=== PATIENT | female | born 1940 | race American Indian/Alaskan Native ===

== ENCOUNTER 2016-09-13 02:25 | Inpatient (IN) | payer MEDICARE ==
--- NOTE | 2016-09-13 03:12 | ED PDOC ---
HPI: Cardiac Arrest Time Seen by Provider: 09/13/16 03:01 Chief Complaint (Nursing): Cardiac Arrest Chief Complaint (Provider): Cardiac Arrest History Per: EMS, Family Reason For Code Blue: Full Arrest Circumstances: Brought To ED By EMS Arrest Witnessed By: Family CPR Initiated Prior To MD Arrival?: Yes Down-Time Before ACLS: Mins Treatment Initiated Prior To MD Arrival: CPR, BVM Ventilations, IV Access Medications Given Prior To MD Arrival: Epinephrine ((Three)) Additional Complaint(s): 75 y/o female patient presenting to the ED with cardiac arrest. Patients family witnessed the patient go into arrest and stated that she was in the bathroom and suddenly could not breathe. She was gasping stating she could not breath. The family tried fanning her and did not provide liquids as they were instructed not to. The family states this is the first time this has ever happened to the patient. Patient was brought in by EMS who state that administered three does of epinephrine while in the field in addition to administering biCarbonate and calcium. Patients past medical history includes three mini-strokes which occurred two weeks ago. Diabetes, Kidney Issues ( Dialysis has been discussed but not started), a stent placed into one leg and CAD. Patient also was put on a heart monitor last week by Dr. Angus Sanford her staff anesthesiologist but the results have not been discussed as of yet. Dr. Clarke is the patients news producer and Dr. Wallace Branch is her primary care physician. - Initial Findings Mentation: Unresponsive Rhythm: PEA Past Medical History Reviewed: Historical Data, Nursing Documentation, Vital Signs Vital Signs: Last Vital Signs Temp 94.7 F L 09/13/16 18:00 Pulse 74 09/13/16 18:00 Resp 18 09/13/16 18:00 BP 167/69 H 09/13/16 18:00 Pulse Ox 99 09/13/16 12:00 - Medical History PMH: CAD, Diabetes, TIA - Surgical History Surgical History: Coronary Stent - Family History Family History: States: Unknown Family Hx - Home Medications Home Medications: Ambulatory Orders Medication Instructions Recorded Aspirin [Ecotrin] 81 mg PO DAILY 09/13/16 Atorvastatin [Lipitor] 40 mg PO HS #30 tab 09/13/16 Bimatoprost [Lumigan] 1 drop OU HS #1 bottle 09/13/16 Brimonidine 0.2% [Alphagan 0.2% 1 drop OU BID #1 bottle 09/13/16 Opht] Cholecalciferol (Vitamin D3) 1,000 unit PO DAILY #30 tablet 09/13/16 [Vitamin D3] Clopidogrel [Plavix] 75 mg PO 09/13/16 Ferrous Sulfate 325 mg PO DAILY #30 tablet 09/13/16 Furosemide [Lasix] 09/13/16 Insulin Detemir [Levemir] 8 units SC HS #1 vial 09/13/16 Metoprolol Tartrate 25 mg PO DAILY #30 tablet 09/13/16 Sevelamer Carbonate [Renvela] 800 mg PO DAILY 09/13/16 Sodium Bicarbonate 650 mg PO DAILY #30 tablet 09/13/16 amLODIPine [Norvasc] 10 mg PO DAILY #30 tab 09/13/16 cloNIDine [Catapres] 0.1 mg PO TID #90 tab 09/13/16 - Allergies Allergies/Adverse Reactions: Allergies Allergy/AdvReac Type Severity Reaction Status Date / Time No Known Allergies Allergy Verified 09/13/16 07:44 - Laboratory Results Result Diagrams: 09/13/16 09:00 09/13/16 11:30 Medical Decision Making Medical Decision Making: Time: 255 Initial impression: Cardiac Arrest Initial plan: --ABG SHOCK PANEL --EKG --CMP --MAGNESIUM --PHOSPHOROUS --TROPONIN I --EKG-ED --CBC --PARTIAL THROMBOPLASTIN --PROTHROMBIN --CHEST PORTABLE XRAY --NURSE STAFF [facility] --CALL CARDIOLOGY CONSULT --ADMIT --UA [URINALYSIS] --URINALYSIS --Critical Care: The high probability of sudden, clinically significant deterioration in the patient's condition required the highest level of my preparedness to intervene urgently. The services I provided to this patient were to treat and/or prevent clinically significant deterioration that could result in: heart failure. Services included the following: chart data review, reviewing nursing notes and/or old charts, documentation time, physician practice consultant collaboration regarding findings and treatment options, medication orders and management, direct patient care, re-evaluations, vital sign assessments and ordering, interpreting and reviewing diagnostic studies/lab tests. Aggregate critical care time was 90 minutes which includes only time during which I was engaged in work directly related to the patient's care, as described above, whether at the bedside or elsewhere in the Emergency Department. It did not include time spent performing other reported procedures or the services of residents, students, nurses or physician assistants. PROCEDURE: INTUBATION Performed by the emergency provider Time: 244 Consent: was precluded by the critical urgency of the procedure and the patient condition. Timeout: A timeout to verify the correct patient, procedure, and site was performed. Indication: Cardiac Arrest Pre-oxygenation: [id number] Medications: None. ETT Size: 7.5 Confirmation: Cords directly visualized as tube passed, good bilateral breath sounds, positive CO2 detector color change, tube fogging, adequate chest rise, improving pulse oximetry reading, improved skin color, and absence of gastric sounds,. ETT Secured: The cuff was inflated and the tube was secured appropriately at a distance of 23cm at the upper-lip. Post-Procedure: There were no immediate immediate complications. CXR Confirmation: {Yes} PROCEDURE: CENTRAL LINE PLACEMENT Performed by the emergency provider Time: 244 Consent: was precluded by the critical urgency of the procedure and the patient condition. Timeout: A timeout to verify the correct patient, procedure, and site was performed. Indication: Cardiac Arrest Anesthesia: None. Skin Preparation: Hand hygiene performed prior to central venous catheter insertion. The area was cleansed with 2% Chlorhexidine. Sterile was not maintained secondary to cardiac arrest. Patient position: Supine Location: Right Femoral Ultrasound guidance: {NO} Technique: The landmarks for the line placement were identified. The vessel was cannulated and a non-tunneled 7.0 Fr triple lumen was placed using the Seldinger technique. Successful placement: {YES}. Line sutured with silk and appropriate dressing applied. Assessment: Good patency and blood return through all three lumens. The ports were appropriately flushed. See post procedure X-Ray interpretation. Post-procedure: There were no immediate complications. --Patient was cooled according to Hypothermia Protocol --Consultations: Case discussed with Dr. Max Gates MD who is aware of the plan and will follow the patient. Dr. Levi MD, [facility] notified of patients condition. Scribe Attestation: Documented by Lola Amin, acting as a scribe for Remy Ardon MD. Scribe Attestation: All medical record entries made by the Scribe were at my direction and personally dictated by me. I have reviewed the chart and agree that the record accurately reflects my personal performance of the history, physical exam, medical decision making, and the department course for this patient. I have also personally directed, reviewed, and agree with the discharge instructions and disposition. Procedures - Central Line Central Line Lumen: triple Central Line Procedure: sterile dressing applied Central Line Postion: femoral (R) Complications: none Central Line Post Position: sutured, good blood return - Intubation Time of Intubation: 02:45 Intubation Method: orotracheal Tube Size (cm): 7.5 Intubation Complications: no complications Post Intubation Xray: Yes Disposition - Clinical Impression Clinical Impression: Cardiac arrest - Disposition Disposition Time: 03:00 Condition: CRITICAL Critical Care Time - Critical Care Note Total Time (in mins): 90 Documented critical care: time excludes all time spent performing seperately billable procedures.
[2016-09-13 03:15] LABS: ABG ALLEN TEST YES; ARTERIAL BLOOD GAS HCO3 10.6 mmol/L (21-28); ARTERIAL BLOOD GAS O2 SAT 98.7 % (95-98); ARTERIAL BLOOD GAS PCO2 60 mm/Hg (35-45); ARTERIAL BLOOD GAS PH 6.97 (7.35-7.45); ARTERIAL BLOOD GAS PO2 160 mm/Hg (80-100); ARTERIAL BLOOD GAS TCO2 15.6 mmol/L (22-28)
[2016-09-13 03:16] LABS: HEMOGLOBIN 8.6 g/dL (12.0-16.0); MEAN CELL VOLUME 78.7 fl (81.0-99.0); MEAN CORPUSCULAR HEMOGLOBIN 22.7 pg (27.0-31.0); MEAN CORPUSCULAR HGB CONC 28.8 g/dL (33.0-37.0); RBC 3.8 Mil/uL (3.80-5.20); RED CELL DISTRIBUTION WIDTH 17.9 % (11.5-14.5); WHITE BLOOD COUNT 18.2 K/uL (4.8-10.8)
[2016-09-13 03:30] LABS: ALBUMIN 2.8 g/dL (3.5-5.0)
[2016-09-13 03:33] LABS: ALB/GLOB RATIO 0.7 (1.0-2.1)
[2016-09-13 03:34] LABS: MAGNESIUM 2.3 MG/DL (1.6-2.3)
[2016-09-13 03:45] LABS: INR 1.1 (0.9-1.2); PARTIAL THROMBOPLASTIN TIME 25.2 Seconds (25.6-37.1); PROTHROMBIN TIME 12.7 Seconds (9.8-13.1)
[2016-09-13 03:46] LABS: CALCIUM 13.3 mg/dL (8.4-10.2)
[2016-09-13] MEDS ORDERED: Iodixanol 320 MG/ML 100 ML BOTTLE IV ONE (03:46)
[2016-09-13] MEDS ORDERED: Sodium Chloride 0.9% 100 ML ONE (03:46)
[2016-09-13 03:49] LABS: TROPONIN I 0.078 ng/mL (0.00-0.120)
[2016-09-13] MEDS ORDERED: Sodium Bicarbonate 8.4% 150 MEQ in Dextrose 5% In Water 1,000 ML IV SCH (03:51)
[2016-09-13] MEDS ORDERED: Propofol 10 mg/ml Inj (100 ml) IV SCH (04:00)
--- NOTE | 2016-09-13 04:14 | CP.PCM.CON ---
History of Present Illness - History of Present Illness History of Present Illness: CC/Reason for ICU: Cardiac arrest History via family, patient is intubated and on vent HPI: This is a 75 y/o female with likely CAD/PVD, DM2, and CKD who comes in after having a cardiac arrest at home. Per family, she began c/o SOB around 1- 130 AM. They tried to move her, and fan her to cool her off, but it got worse, so they called EMS. She was unresponsive and not breathing when EMS arrived. Had CPR, and was intubated in the field and brought here. Patient has not had FLOYD thus far. ROS: unable to perform 2/2 mental status MHx: CAD/PVD, DM2, CKD SHx: Stents in LE for PVD Allergies: unknown Medications: as per med rec Family Hx: Unable to obtain Social Hx: Lives with family; tobacco use in past, but quit 10 years ago, no EtOH Surrogate Dec Mkr: Son, info in chart Past Patient History - NEUROLOGICAL Hx Transient Ischemic Attacks (TIA): Yes - SURGICAL HISTORY Hx Coronary Stent: Yes Meds Allergies/Adverse Reactions: Allergies Allergy/AdvReac Type Severity Reaction Status Date / Time Unobtainable Allergy Verified 09/13/16 02:50 - Medications Medications: Current Medications Artificial Tears (Lacri-Lube) 1 applic OU HS MARY GRACE Sodium Bicarbonate 150 meq/ (Dextrose) 1,150 mls @ 75 mls/hr IV .[id number] MARY GRACE Stop: 09/14/16 03:52 Insulin Human Lispro (Humalog) 0 units SC Q6H MARY GRACE PRN Reason: Protocol Pantoprazole Sodium (Protonix Inj) 40 mg IVP DAILY MARY GRACE Propofol (Diprivan) 1,000 mg IV .TITRATE MARY GRACE PRN Reason: Protocol Physical Exam - Constitutional Additional comments: unresponsive - Head Exam Head Exam: ATRAUMATIC, NORMOCEPHALIC - Eye Exam Additional comments: pupils non reactive - ENT Exam ENT Exam: Mucous Membranes Moist - Respiratory Exam Respiratory Exam: Rhonchi Additional comments: on vent - Cardiovascular Exam Cardiovascular Exam: REGULAR RHYTHM, +S1, +S2 - GI/Abdominal Exam GI & Abdominal Exam: Normal Bowel Sounds, Soft - Extremities Exam Extremities exam: Positive for: pedal edema - Neurological Exam Additional comments: unresponsive - Skin Skin Exam: Dry, Warm Results - Vital Signs Recent Vital Signs: Last Vital Signs Temp 97.7 F 09/13/16 02:50 Pulse 81 09/13/16 03:16 Resp 12 09/13/16 03:16 BP 120/52 L 09/13/16 03:16 Pulse Ox 100 09/13/16 03:16 - Labs Result Diagrams: 09/13/16 03:10 09/13/16 03:10 Labs: Laboratory Results - last 24 hr 09/13/16 09/13/16 09/13/16 03:10 03:10 03:10 WBC 18.2 H RBC 3.80 Hgb 8.6 L Hct 29.9 L MCV 78.7 L MCH 22.7 L MCHC 28.8 L RDW 17.9 H Plt Count 342 PT 12.7 INR 1.1 APTT 25.2 L pCO2 pO2 HCO3 ABG pH ABG Total CO2 ABG O2 Saturation ABG Base Excess Darrell Test ABG Potassium A-a O2 Difference Glucose Lactate Vent Mode Mechanical Rate FiO2 Tidal Volume PEEP Crit Value Called To Crit Value Called By Crit Value Read Back Blood Gas Notified Time Sodium 144 Potassium 4.2 Chloride 113 H Carbon Dioxide 17 L Anion Gap 18 BUN 33 H Creatinine 2.2 H Est GFR ( Amer) 26 Est GFR (Non-Af Amer) 22 Random Glucose 210 H Calcium 13.3 H* Phosphorus 7.4 H Magnesium 2.3 Total Bilirubin 0.5 AST 81 H ALT 47 Alkaline Phosphatase 66 Troponin I 0.0780 Total Protein 6.6 Albumin 2.8 L Globulin 3.8 Albumin/Globulin Ratio 0.7 L Arterial Blood Potassium 09/13/16 03:11 WBC RBC Hgb Hct MCV MCH MCHC RDW Plt Count PT INR APTT pCO2 60 H pO2 160 H HCO3 10.6 L ABG pH 6.97 L* ABG Total CO2 15.6 L ABG O2 Saturation 98.7 H ABG Base Excess -18.4 L Darrell Test Yes ABG Potassium 5.0 A-a O2 Difference 478.0 Glucose 197 H Lactate 10.3 H* Vent Mode Prvc ac Mechanical Rate 12 FiO2 100.0 Tidal Volume 500 PEEP 5 Crit Value Called To Remy bautista md Crit Value Called By 6075 Crit Value Read Back Y Blood Gas Notified Time 314 Sodium 143.0 Potassium Chloride 109.0 H Carbon Dioxide Anion Gap BUN Creatinine Est GFR ( Amer) Est GFR (Non-Af Amer) Random Glucose Calcium Phosphorus Magnesium Total Bilirubin AST ALT Alkaline Phosphatase Troponin I Total Protein Albumin Globulin Albumin/Globulin Ratio Arterial Blood Potassium 5.0 - EKG Data EKG Interpreted by: Myself EKG shows normal: Sinus rhythm - EKG Data EKG comments: RBBB, TOM, poor r wave progression on septal leads - Imaging and Cardiology CT scan - head Status: Pending Chest x-ray Status: Pending Assessment & Plan (1) Cardiac arrest Assessment and Plan: 75 y/o female with DM2, CKD, CAD/PVD who comes in with cardiac arrest of unknown etiology. -Admit ICU -Patient has been started on therapeutic hypothermia protocol in ED, goal temp 32-34 -Labs/CXR/CT head pending -VQ scan pending to r/o PE -q6h accucheck + SSI -Protonix IV for GI PPx while vented -Propofol gtt for sedation -If BP low, levophed gtt for goal map ~65 -Given significant acidosis on ABG, will start bicarb gtt at 60 cc/hr -DVT PPx pending labs/studies -Per family, patient is still full code Critical care time spent 60 min Status: Acute
[2016-09-13] MEDS ORDERED: Propofol 10 mg/ml 1,000 MG/100 ML VIAL IV ONE (04:15)
--- NOTE | 2016-09-13 04:46 | CT ---
EXAM: CT Head Without Intravenous Contrast CLINICAL HISTORY: 75 years old, female; Signs and symptoms; Coma or unconsciousness and other: Unresponsive TECHNIQUE: Axial computed tomography images of the head/brain without intravenous contrast. This CT exam was performed using one or more of the following dose reduction techniques: automated exposure control, adjustment of the mA and/or kV according to patient size, and/or use of iterative reconstruction technique. Coronal and sagittal reformatted images were created and reviewed. COMPARISON: No relevant prior studies available. FINDINGS: Limitations: Motion artifact - mild. Brain: [id number] atrophy. No definite intracranial hemorrhage. No mass. Few scattered foci of decreased attenuation within periventricular/subcortical white matter. Chronic lacunar infarct within RIGHT basal ganglia. No definite edema. Ventricles: No hydrocephalus. Bones/joints: No acute fracture. Soft tissues: Unremarkable. Vasculature: Atherosclerotic disease of intracranial arteries. Sinuses: Scattered mild to moderate mucosal thickening/mild fluid of sinuses. Mastoid air cells: No mastoid effusion. Orbits: Unremarkable as visualized. IMPRESSION: 1. Nonspecific white matter changes. Acute infarction may be CT occult within first 24 hours. If a focal deficit persists, consider followup CT or MRI for further evaluation. 2. Incidental/non-acute findings are described above.
[2016-09-13] MEDS ORDERED: Propofol 10 mg/ml 1,000 MG/100 ML VIAL ONE (04:47)
[2016-09-13] MEDS: Sodium Bicarbonate 8.4% 150 MEQ in Dextrose 5% In Water 1,000 ML IV SCH (05:18)
[2016-09-13] MEDS ORDERED: Sodium Chloride 0.9% 2,000 ML IV SCH (05:30)
[2016-09-13] MEDS: Insulin Lispro (humaLOG) 100 Units/ml Inj SC SCH ×4 (05:54→20:58)
--- NOTE | 2016-09-13 08:42 | RAD ---
HISTORY: cardiac arrest COMPARISON: No prior. FINDINGS: LUNGS: There is opacification of the right lung compatible with extensive diffuse interstitial infiltrate. There is also a left perihilar infiltrate. PLEURA: No significant pleural effusion identified, no pneumothorax apparent. CARDIOVASCULAR: Cardiomegaly.. OSSEOUS STRUCTURES: No significant abnormalities. VISUALIZED UPPER ABDOMEN: Normal. OTHER FINDINGS: ETT above the cortney. NG tube below the diaphragm.. IMPRESSION: Diffuse infiltrate throughout the right lung with left perihilar infiltrate.
[2016-09-13 09:53] LABS: MEAN CORPUSCULAR HEMOGLOBIN 21.8 pg (27.0-31.0); MEAN CORPUSCULAR HGB CONC 29.3 g/dL (33.0-37.0); RBC 4.58 Mil/uL (3.80-5.20); RED CELL DISTRIBUTION WIDTH 17.6 % (11.5-14.5); WHITE BLOOD COUNT 22.8 K/uL (4.8-10.8)
[2016-09-13 09:55] LABS: MEAN CELL VOLUME 74.3 fl (81.0-99.0)
[2016-09-13 10:11] LABS: ALB/GLOB RATIO 0.9 (1.0-2.1); CALCIUM 9.3 mg/dL (8.4-10.2); MAGNESIUM 2.1 MG/DL (1.6-2.3)
[2016-09-13 10:27] LABS: ABG ALLEN TEST YES; ARTERIAL BLOOD GAS HCO3 16.7 mmol/L (21-28); ARTERIAL BLOOD GAS HEMOGLOBIN 10.6 g/dL (11.7-17.4); ARTERIAL BLOOD GAS O2 CAPACITY 14.4 mL/dL (16-24); ARTERIAL BLOOD GAS O2 CONTENT 12.7 ML/dL (15-23); ARTERIAL BLOOD GAS PCO2 57 mm/Hg (35-45); ARTERIAL BLOOD GAS PH 7.13 (7.35-7.45); ARTERIAL BLOOD GAS PO2 57 mm/Hg (80-100); ARTERIAL BLOOD GAS TCO2 20.7 mmol/L (22-28)
--- NOTE | 2016-09-13 10:57 | RAD ---
HISTORY: resp distress COMPARISON: No prior. FINDINGS: LUNGS: Diffuse bilateral interstitial infiltrates. PLEURA: No significant pleural effusion identified, no pneumothorax apparent. CARDIOVASCULAR: Normal. OSSEOUS STRUCTURES: No significant abnormalities. VISUALIZED UPPER ABDOMEN: Normal. OTHER FINDINGS: ETT above the cortney. IMPRESSION: Diffuse bilateral interstitial infiltrates.
--- NOTE | 2016-09-13 11:24 | CARD ---
APPROVED REPORT EKG Measurement Heart [id number] <Conclusion> Sinus rhythm with 1st degree AV block with fusion complexes Possible Left atrial enlargement Right bundle branch block Septal infarct, age undetermined Lateral infarct, age undetermined Abnormal ECG
--- NOTE | 2016-09-13 11:44 | CP.PCM.CON ---
History of Present Illness - History of Present Illness History of Present Illness: This 75 YOF was admitted to ICU early this AM, after she was brought to ER earlier after cardiac arrest at home. It was witnessed by family members, who saw pt unable to breath while in bath room and then collapsed, she did not c/o chest pain. EMT arrived and intubated her and she was given epi and calcium. Not sure from the documents , but probably pt had cardiac arrest with no pulse but pulse and BP returned after epi. in ER she was unresponsive, did not have low BS and CT head was negative. Therapeutic hypothermia started and pt is now in ICU, unresponsive, requiring Fio 1.0 for adequate saturation and not breathing over the vent. BP is stable 150/60 in SB 54/m. Was very acidotic with PH 6.9 and patient is on bicarb infusion. Review of Systems - Review of Systems Systems not reviewed;Unavailable: Unstable Vital Signs, Intubated - EENT Eyes: As Per HPI - Cardiovascular Cardiovascular: As Per HPI - Respiratory Respiratory: As Per HPI - Gastrointestinal Gastrointestinal: As Per HPI Past Patient History - Past Medical History & Family History Past Medical History?: Yes - Past Social History Smoking Status: Never Smoked - CARDIAC Hx Cardiac Disorders: Yes Hx Angina: Yes Hx Atrial Fibrillation: No Hx Cardia Arrhythmia: No Hx Circulatory Problems: Yes Hx Congestive Heart Failure: Yes Hx Heart Attack: Yes Hx Heart Transplant: No Hx Hypertension: Yes Hx Peripheral Vascular Disease: Yes - PULMONARY Hx Respiratory Disorders: No - NEUROLOGICAL Hx Neurological Disorder: Yes Hx Alzheimer's Disease: No HX Cerebrovascular Accident: No Hx Transient Ischemic Attacks (TIA): Yes - HEENT Hx HEENT Problems: No - RENAL Hx Chronic Kidney Disease: Yes Hx Dialysis: No Hx Kidney Stones: No - ENDOCRINE/METABOLIC Hx Endocrine Disorders: Yes Hx Diabetes Mellitus Type 2: Yes - HEMATOLOGICAL/ONCOLOGICAL Hx Blood Disorders: No Hx Anemia: Yes - GENITOURINARY/GYNECOLOGICAL Hx Genitourinary Disorders: No - PSYCHIATRIC Hx Substance Use: No - SURGICAL HISTORY Hx Coronary Stent: Yes - ANESTHESIA Hx Anesthesia: Yes Meds Allergies/Adverse Reactions: Allergies Allergy/AdvReac Type Severity Reaction Status Date / Time No Known Allergies Allergy Verified 09/13/16 07:44 - Medications Medications: Current Medications Artificial Tears (Lacri-Lube) 1 applic OU HS MARY GRACE Propofol (Diprivan) 1,000 mg in 100 mls @ 3.538 mls/hr IV .Q24H ONE; 5 MCG/KG/ MIN PRN Reason: Protocol Stop: 09/14/16 04:14 Last Admin: 09/13/16 04:47 Dose: 3.538 mls/hr Sodium Bicarbonate 150 meq/ (Dextrose) 1,150 mls @ 60 mls/hr IV .[id number] MARY GRACE Stop: 09/14/16 03:52 Last Admin: 09/13/16 05:18 Dose: 60 mls/hr Sodium Chloride (Sodium Chloride 0.9%) 2,000 mls @ 1,000 mls/hr IV .Q2H MARY GRACE Stop: 09/14/16 05:26 Last Admin: 09/13/16 03:30 Dose: 1,000 mls/hr Ceftriaxone Sodium 1 gm/ (Sodium Chloride) 100 mls @ 100 mls/hr IVPB DAILY MARY GRACE Azithromycin 500 mg/ Sodium (Chloride) 250 mls @ 250 mls/hr IVPB DAILY [facility] Insulin Human Lispro (Humalog) 0 units SC Q6H MARY GRACE PRN Reason: Protocol Last Admin: 09/13/16 10:48 Dose: 2 u Pantoprazole Sodium (Protonix Inj) 40 mg IVP DAILY [facility] Last Admin: 09/13/16 09:38 Dose: 40 mg Physical Exam - Constitutional Appears: Other - Head Exam Head Exam: ATRAUMATIC - Eye Exam Pupil Exam: Miosis - ENT Exam ENT Exam: Mucous Membranes Moist - Neck Exam Neck exam: Positive for: Full Rom - Respiratory Exam Respiratory Exam: Decreased Breath Sounds, Rales - Cardiovascular Exam Cardiovascular Exam: Bradycardia, REGULAR RHYTHM - GI/Abdominal Exam GI & Abdominal Exam: Diminished Bowel Sounds Results - Vital Signs Recent Vital Signs: Last Vital Signs Temp 91.4 F L 09/13/16 08:49 Pulse 51 L 09/13/16 08:49 Resp 12 09/13/16 08:49 BP 139/73 09/13/16 08:49 Pulse Ox 92 L 09/13/16 08:49 - Labs Result Diagrams: 09/13/16 09:00 09/13/16 09:00 Labs: Laboratory Results - last 24 hr 09/13/16 09/13/16 09/13/16 03:10 03:10 03:10 WBC 18.2 H RBC 3.80 Hgb 8.6 L Hct 29.9 L MCV 78.7 L MCH 22.7 L MCHC 28.8 L RDW 17.9 H Plt Count 342 PT 12.7 INR 1.1 APTT 25.2 L pCO2 pO2 HCO3 ABG pH ABG Total CO2 ABG O2 Saturation ABG O2 Content ABG Base Excess ABG Hemoglobin ABG Carboxyhemoglobin POC ABG HHb (Measured) ABG Methemoglobin ABG O2 Capacity Darrell Test ABG Potassium A-a O2 Difference Hgb O2 Saturation Glucose Lactate Vent Mode Mechanical Rate FiO2 Tidal Volume PEEP Pressure Support Blood Gas Comments Crit Value Called To Crit Value Called By Crit Value Read Back Blood Gas Notified Time Sodium 144 Potassium 4.2 Chloride 113 H Carbon Dioxide 17 L Anion Gap 18 BUN 33 H Creatinine 2.2 H Est GFR ( Amer) 26 Est GFR (Non-Af Amer) 22 POC Glucose (mg/dL) Random Glucose 210 H Lactic Acid Calcium 13.3 H* Phosphorus 7.4 H Magnesium 2.3 Total Bilirubin 0.5 AST 81 H ALT 47 Alkaline Phosphatase 66 Troponin I 0.0780 Total Protein 6.6 Albumin 2.8 L Globulin 3.8 Albumin/Globulin Ratio 0.7 L Arterial Blood Potassium 09/13/16 09/13/16 09/13/16 03:11 08:49 09:00 WBC 22.8 H RBC 4.58 Hgb 10.0 L Hct 34.0 MCV 74.3 L D MCH 21.8 L MCHC 29.3 L RDW 17.6 H Plt Count 371 PT INR APTT pCO2 60 H pO2 160 H HCO3 10.6 L ABG pH 6.97 L* ABG Total CO2 15.6 L ABG O2 Saturation 98.7 H ABG O2 Content ABG Base Excess -18.4 L ABG Hemoglobin ABG Carboxyhemoglobin POC ABG HHb (Measured) ABG Methemoglobin ABG O2 Capacity Darrell Test Yes ABG Potassium 5.0 A-a O2 Difference 478.0 Hgb O2 Saturation Glucose 197 H Lactate 10.3 H* Vent Mode Prvc ac Mechanical Rate 12 FiO2 100.0 Tidal Volume 500 PEEP 5 Pressure Support Blood Gas Comments Crit Value Called To Remy bautista md Crit Value Called By 6075 Crit Value Read Back Y Blood Gas Notified Time 314 Sodium 143.0 Potassium Chloride 109.0 H Carbon Dioxide Anion Gap BUN Creatinine Est GFR ( Amer) Est GFR (Non-Af Amer) POC Glucose (mg/dL) 202 H Random Glucose Lactic Acid Calcium Phosphorus Magnesium Total Bilirubin AST ALT Alkaline Phosphatase Troponin I Total Protein Albumin Globulin Albumin/Globulin Ratio Arterial Blood Potassium 5.0 09/13/16 09/13/16 09/13/16 09:00 09:00 10:15 WBC RBC Hgb Hct MCV MCH MCHC RDW Plt Count PT INR APTT pCO2 57 H pO2 57 L HCO3 16.7 L ABG pH 7.13 L* ABG Total CO2 20.7 L ABG O2 Saturation 88.0 L ABG O2 Content 12.7 L ABG Base Excess -10.2 L ABG Hemoglobin 10.6 L ABG Carboxyhemoglobin 1.5 POC ABG HHb (Measured) 11.6 H ABG Methemoglobin 1.7 ABG O2 Capacity 14.4 L Darrell Test Yes ABG Potassium A-a O2 Difference 585.0 Hgb O2 Saturation 85.2 L Glucose Lactate Vent Mode Pvc/ac Mechanical Rate 12 FiO2 100.0 Tidal Volume 500 PEEP 5 Pressure Support 0 Blood Gas Comments Vt 500 pr/ac 12 io2 100% peep 5 Crit Value Called To Dr brianna talley Crit Value Called By 162 Crit Value Read Back Y Blood Gas Notified Time 1026 Sodium 144 Potassium 5.3 H Chloride 112 H Carbon Dioxide 20 L Anion Gap 17 BUN 40 H Creatinine 2.7 H Est GFR ( Amer) 21 Est GFR (Non-Af Amer) 17 POC Glucose (mg/dL) Random Glucose 239 H Lactic Acid 2.4 H Calcium 9.3 Phosphorus 7.6 H Magnesium 2.1 Total Bilirubin 0.5 AST 238 H D ALT 137 H D Alkaline Phosphatase 127 H D Troponin I Total Protein 6.4 Albumin 3.0 L Globulin 3.4 Albumin/Globulin Ratio 0.9 L Arterial Blood Potassium Assessment & Plan - Assessment and Plan (Free Text) Assessment: Out of hospital Card arrest: probably has PEA, responded to CPR, has pulse and BP but unresponisve Pulm edema/PNA Resp failure EDNA CKD-4 DM CAD h/o HTN shocked liver Sever metabolic acidosis: due to high lactic acid s/p on therapeutic hypothermia Hypecalcemia: probably lab error Plan: Therapeutic hypothermia vent setting changed, on AC 18/m VT 500 : PEEP 8, Fio 1.0 Blood culture Azithromycin and ceftriaoxone for suspected PNA On bicarb infusion , slow repeat blood work Card and Renal consult Discussed with family.
[2016-09-13 12:08] LABS: ALB/GLOB RATIO 0.9 (1.0-2.1); ALBUMIN 2.9 g/dL (3.5-5.0); CALCIUM 9.1 mg/dL (8.4-10.2)
--- NOTE | 2016-09-13 12:18 | CP.PCM.HP ---
<AnthonyKaren - Last Filed: 09/13/16 16:43> History of Present Illness - History of Present Illness History of Present Illness: History obtained from documentation and confirmed by family at bedside -patient is intubated and on mechanical ventilation 75 yr old F brought into ED by ambulance in cardiac arrest. Patients family witnessed the patient going into cardiac arrest, she was initially in the bathroom and started to feel SOB, her son helped her walk to the living room where she asked for the air conditioner to be turned on, her son called 911 as patients SOB rapidly progressed until she was gasping for air and was stopped breathing for 6-8 min prior to any intervention or EMS arrival . EMS arrived, intubated the patient, administered Epinephrine x 3 doses, Calcium and HCO3. Patient has PMHx including CAD, PAD s/p stent in RLE, IDDM Type 2, CKD stage IV (not on dialysis-discussed but pt refused), 3 recent TIA's, severe aortic stenosis. Son at bedside reports that at baseline, patient ambulates minimally in the house from room to kitchen/living room and bathroom, she only leaves the house for doctor's appts, has had 3 recent falls in the last couple of months ( due to gait instability/doesn't lock her walker/missed the chair when going to sit down). PMD: Dr. Branch Specialists: Dr. Sanford-cardiology; Dr. Beasley -nephrology PMHx: CAD, PAD s/p stent in RLE, IDDM Type 2, CKD stage IV (not on dialysis), 3 recent TIA's, severe aortic stenosis SurgHx: stents in LE for PAD FMHx: unknown SocHx: former smoker (quit 10 yrs ago), no Etoh, sedentary lifestyle, lives with son Medications: Insulin Levemir Flextouch Pen 8 units SC HS, Clonidine 0.1 mg PO TID, Metoprolol Tartrate 25mg PO, Amlodipine 10mg PO QD, Plavix 75mg PO QD, Atorvastatin 40mg PO QD, Vitamin D 1,000 IU PO QD, Ferrous Sulfate 325mg PO QD, NaHCO3 650mg PO QID, Lumigan 0.01% 1 drop in each eye QHS, Brimonidine 0.2% 1 drop in each eye BID Allergies: NKDA ED course: patient arrived unresponsive, intubated -VS: BP 120/52 mmHg, HR 81, T 97.7 F, Resp 12 -EKG: Sinus rhythm with 1st degree AV block with fusion complexes, RBBB, Septal & Lateral infarct (age undetermined) -CXR: Diffuse infiltrate throughout the right lung with left perihilar infiltrate -CT head: no definite intracranial hemorrhage, no mass, chronic lacunar infarct within right basal ganglia, no definite edema, intracranial -ED Procedures: Intubated (ETT size 7.5), Right femoral central line placed, NG tube placed -ABG shock panel: pH 6.97, pCO2 60, pO2 160, HCO3 10.6, Lactate 10.3 -CBC: WBC 18.2, H/H 8.6/29.9 MCV 78.7, plts 342 -coags: INR 1.1, PT 12.7, PTT 25.2 -CMP: Na 144, K 4.2, Cl 113, HCO3 17, BUN/Cr 33/2.2, GFR 26, Ca 13.3, AST/ALT 81 /47, alk phos 66, Mag 2.3, Phos 7.4 -Troponin 0.07 Present on Admission - Present on Admission Any Indicators Present on Admission: Yes History of DVT/PE: No History of Uncontrolled Diabetes: Yes Urinary Catheter: No Decubitus Ulcer Present: No Review of Systems - Review of Systems Systems not reviewed;Unavailable: Intubated Past Patient History - Past Medical History & Family History Past Medical History?: Yes - Past Social History Smoking Status: Never Smoked - CARDIAC Hx Cardiac Disorders: Yes Hx Angina: Yes Hx Atrial Fibrillation: No Hx Cardia Arrhythmia: No Hx Circulatory Problems: Yes Hx Congestive Heart Failure: Yes Hx Heart Attack: Yes Hx Heart Transplant: No Hx Hypertension: Yes Hx Peripheral Vascular Disease: Yes - PULMONARY Hx Respiratory Disorders: No - NEUROLOGICAL Hx Neurological Disorder: Yes Hx Alzheimer's Disease: No HX Cerebrovascular Accident: No Hx Transient Ischemic Attacks (TIA): Yes - HEENT Hx HEENT Problems: No - RENAL Hx Chronic Kidney Disease: Yes Hx Dialysis: No Hx Kidney Stones: No - ENDOCRINE/METABOLIC Hx Endocrine Disorders: Yes Hx Diabetes Mellitus Type 2: Yes - HEMATOLOGICAL/ONCOLOGICAL Hx Blood Disorders: No Hx Anemia: Yes - GENITOURINARY/GYNECOLOGICAL Hx Genitourinary Disorders: No - PSYCHIATRIC Hx Substance Use: No - SURGICAL HISTORY Hx Coronary Stent: Yes - ANESTHESIA Hx Anesthesia: Yes Meds Home Medications: Home Medication List Medication Instructions Recorded Confirmed Type Atorvastatin [Lipitor] 40 mg PO HS #30 tab 09/13/16 Rx Bimatoprost [Lumigan] 1 drop OU HS #1 bottle 09/13/16 Rx Brimonidine 0.2% [Alphagan 0.2% 1 drop OU BID #1 bottle 09/13/16 Rx Opht] Cholecalciferol (Vitamin D3) 1,000 unit PO DAILY #30 tablet 09/13/16 Rx [Vitamin D3] Ferrous Sulfate 325 mg PO DAILY #30 tablet 09/13/16 Rx Insulin Detemir [Levemir] 8 units SC HS #1 vial 09/13/16 Rx Metoprolol Tartrate 25 mg PO DAILY #30 tablet 09/13/16 Rx Sodium Bicarbonate 650 mg PO DAILY #30 tablet 09/13/16 Rx amLODIPine [Norvasc] 10 mg PO DAILY #30 tab 09/13/16 Rx cloNIDine [Catapres] 0.1 mg PO TID #90 tab 09/13/16 Rx Allergies/Adverse Reactions: Allergies Allergy/AdvReac Type Severity Reaction Status Date / Time No Known Allergies Allergy Verified 09/13/16 07:44 Physical Exam - Constitutional Appears: Other (unresponsive, intubated) - Head Exam Head Exam: ATRAUMATIC, NORMOCEPHALIC - Eye Exam Additional comments: pupils nonreactive - ENT Exam ENT Exam: Mucous Membranes Moist - Respiratory Exam Respiratory Exam: Rhonchi (diffuse) - Cardiovascular Exam Cardiovascular Exam: REGULAR RHYTHM, +S1, +S2 - GI/Abdominal Exam GI & Abdominal Exam: Normal Bowel Sounds, Soft. absent: Distended - Exam Additional comments: yepez catheter in place draining clear yellow urine, 20cc in bag - Extremities Exam Extremities exam: Positive for: pedal edema (bilateral, with hyperpigmentation) . Negative for: pedal pulses present - Neurological Exam Additional comments: unresponsive Results - Vital Signs Recent Vital Signs: Last Vital Signs Temp 98.7 F 09/13/16 12:00 Pulse 53 L 09/13/16 12:00 Resp 18 09/13/16 12:00 BP 141/57 L 09/13/16 12:00 Pulse Ox 99 09/13/16 12:00 - Labs Result Diagrams: 09/13/16 09:00 09/13/16 11:30 Labs: Laboratory Results - last 24 hr 09/13/16 09/13/16 09/13/16 03:10 03:10 03:10 WBC 18.2 H RBC 3.80 Hgb 8.6 L Hct 29.9 L MCV 78.7 L MCH 22.7 L MCHC 28.8 L RDW 17.9 H Plt Count 342 PT 12.7 INR 1.1 APTT 25.2 L pCO2 pO2 HCO3 ABG pH ABG Total CO2 ABG O2 Saturation ABG O2 Content ABG Base Excess ABG Hemoglobin ABG Carboxyhemoglobin POC ABG HHb (Measured) ABG Methemoglobin ABG O2 Capacity Darrell Test ABG Potassium A-a O2 Difference Hgb O2 Saturation Glucose Lactate Vent Mode Mechanical Rate FiO2 Tidal Volume PEEP Pressure Support Blood Gas Comments Crit Value Called To Crit Value Called By Crit Value Read Back Blood Gas Notified Time Sodium 144 Potassium 4.2 Chloride 113 H Carbon Dioxide 17 L Anion Gap 18 BUN 33 H Creatinine 2.2 H Est GFR ( Amer) 26 Est GFR (Non-Af Amer) 22 POC Glucose (mg/dL) Random Glucose 210 H Lactic Acid Calcium 13.3 H* Phosphorus 7.4 H Magnesium 2.3 Total Bilirubin 0.5 AST 81 H ALT 47 Alkaline Phosphatase 66 Troponin I 0.0780 Total Protein 6.6 Albumin 2.8 L Globulin 3.8 Albumin/Globulin Ratio 0.7 L Arterial Blood Potassium 09/13/16 09/13/16 09/13/16 03:11 08:49 09:00 WBC 22.8 H RBC 4.58 Hgb 10.0 L Hct 34.0 MCV 74.3 L D MCH 21.8 L MCHC 29.3 L RDW 17.6 H Plt Count 371 PT INR APTT pCO2 60 H pO2 160 H HCO3 10.6 L ABG pH 6.97 L* ABG Total CO2 15.6 L ABG O2 Saturation 98.7 H ABG O2 Content ABG Base Excess -18.4 L ABG Hemoglobin ABG Carboxyhemoglobin POC ABG HHb (Measured) ABG Methemoglobin ABG O2 Capacity Darrell Test Yes ABG Potassium 5.0 A-a O2 Difference 478.0 Hgb O2 Saturation Glucose 197 H Lactate 10.3 H* Vent Mode Prvc ac Mechanical Rate 12 FiO2 100.0 Tidal Volume 500 PEEP 5 Pressure Support Blood Gas Comments Crit Value Called To Remy bautista md Crit Value Called By 6075 Crit Value Read Back Y Blood Gas Notified Time 314 Sodium 143.0 Potassium Chloride 109.0 H Carbon Dioxide Anion Gap BUN Creatinine Est GFR ( Amer) Est GFR (Non-Af Amer) POC Glucose (mg/dL) 202 H Random Glucose Lactic Acid Calcium Phosphorus Magnesium Total Bilirubin AST ALT Alkaline Phosphatase Troponin I Total Protein Albumin Globulin Albumin/Globulin Ratio Arterial Blood Potassium 5.0 09/13/16 09/13/16 09/13/16 09:00 09:00 10:15 WBC RBC Hgb Hct MCV MCH MCHC RDW Plt Count PT INR APTT pCO2 57 H pO2 57 L HCO3 16.7 L ABG pH 7.13 L* ABG Total CO2 20.7 L ABG O2 Saturation 88.0 L ABG O2 Content 12.7 L ABG Base Excess -10.2 L ABG Hemoglobin 10.6 L ABG Carboxyhemoglobin 1.5 POC ABG HHb (Measured) 11.6 H ABG Methemoglobin 1.7 ABG O2 Capacity 14.4 L Darrell Test Yes ABG Potassium A-a O2 Difference 585.0 Hgb O2 Saturation 85.2 L Glucose Lactate Vent Mode Pvc/ac Mechanical Rate 12 FiO2 100.0 Tidal Volume 500 PEEP 5 Pressure Support 0 Blood Gas Comments Vt 500 pr/ac 12 io2 100% peep 5 Crit Value Called To Dr brianna talley Crit Value Called By 162 Crit Value Read Back Y Blood Gas Notified Time 1026 Sodium 144 Potassium 5.3 H Chloride 112 H Carbon Dioxide 20 L Anion Gap 17 BUN 40 H Creatinine 2.7 H Est GFR ( Amer) 21 Est GFR (Non-Af Amer) 17 POC Glucose (mg/dL) Random Glucose 239 H Lactic Acid 2.4 H Calcium 9.3 Phosphorus 7.6 H Magnesium 2.1 Total Bilirubin 0.5 AST 238 H D ALT 137 H D Alkaline Phosphatase 127 H D Troponin I Total Protein 6.4 Albumin 3.0 L Globulin 3.4 Albumin/Globulin Ratio 0.9 L Arterial Blood Potassium Assessment & Plan - Assessment and Plan (Free Text) Assessment: 75 yr old F admitted for Cardiac arrest of unknown etiology, intubated on mechanical ventilation, admitted to ICU on IV antibiotics for CAP. Patient has PMhx including CAD, PAD s/p stent in RLE, IDDM Type 2, CKD stage IV (not on dialysis-discussed but pt refused), 3 recent TIA's, severe aortic stenosis. Cardiology and Nephrology on board. Cardiac Arrest -acute, unknown etiology, BP maintained off pressors -metabolic acidosis -therapeutic hypothermia -intubated: vent PVC/AC 18/ TV 500 : PEEP 8, FiO2 100 -Propofol 1,000mg in 100mls at 3.538 mls/hr IV Q24H, Protonix 40mg IVP QD, Lacri -lube 1 applic OU HS -NaHCO3 150 Meq in D5 at 60mls/hr -troponin 0.07> 8.34 -Cardiology on consult- Dr. Sanford: will follow recommendations Community Acquired Pneumonia -acute, leukocytosis 18.2>22.8 -repeat CXR: diffuse bilateral intersitial infiltrates -Ceftriaxone 1 gm IV QD, Azithromycin 500mg IV QD (Day 1) -f/u CBC w/diff Acute on Chronic Chronic Kidney Disease Stage IV -worsening acute on chronic, secondary to cardiac arrest -Nephrology on consult: Dr. Beasley -hold home meds (Vitamin D 1,000 IU PO QD, , NaHCO3 650mg PO QID) -f/u BUN/Cr IDDM Type 2 -uncontrolled, chronic -Insulin Lispro SC Q6H -low dose protocol -hold home meds (Insulin Levemir Flextouch Pen 8 units SC HS, Atorvastatin 40mg PO QD) -f/u HbA1c, lipid panel CAD (severe aortic stenosis /PAD s/p LE stent/ 3 recent TIA's -stable, chronic -hold home med (Plavix 75mg PO QD) -Cardiology on consult- Dr. Sanford: will follow recommendations Anemia of Chronic Disease -stable, chronic -hold home med (Ferrous Sulfate 325mg PO QD) -monitor CBC HTN -controlled, chronic -hold home meds for now (Clonidine 0.1 mg PO TID, Metoprolol Tartrate 25mg PO, Amlodipine 10mg PO QD) -monitor BP - Date & Time Date: 09/13/16 Time: 08:00 <Latasha Hyatt - Last Filed: 09/14/16 10:55> Physical Exam - Additional Findings Additional findings: ATTENDING NOTE ADDENDUM PATIENT SEEN AND EXAMINED. CASE DISCUSSED WITH RESIDENT AND CREDIT CONTROL OFFICER. AGREE WITH FINDING AND PLAN. Results - Vital Signs Recent Vital Signs: Last Vital Signs Temp 91.8 F L 09/14/16 10:30 Pulse 59 L 09/14/16 10:30 Resp 18 09/14/16 10:30 BP 157/64 H 09/14/16 10:30 Pulse Ox 99 09/13/16 12:00 - Labs Result Diagrams: 09/14/16 04:20 09/14/16 09:20 Labs: Laboratory Results - last 24 hr 09/13/16 09/13/16 09/13/16 03:10 09:00 11:30 WBC 18.2 H RBC 3.80 Hgb 8.6 L Hct 29.9 L MCV 78.7 L D MCH 22.7 L MCHC 28.8 L RDW 17.9 H Plt Count 342 MPV Neut % (Auto) Lymph % (Auto) Major % (Auto) Eos % (Auto) Baso % (Auto) Neut # Lymph # Major # Eos # Baso # Neutrophils % (Manual) Band Neutrophils % Lymphocytes % (Manual) Monocytes % (Manual) Basophils % (Manual) Platelet Estimate Hypochromasia (manual) Anisocytosis (manual) Tear Drop Cells Ovalocytes Schistocytes APTT pCO2 pO2 HCO3 ABG pH ABG Total CO2 ABG O2 Saturation ABG O2 Content ABG Base Excess ABG Hemoglobin ABG Carboxyhemoglobin POC ABG HHb (Measured) ABG Methemoglobin ABG O2 Capacity Darrell Test A-a O2 Difference Hgb O2 Saturation Vent Mode Mechanical Rate FiO2 Tidal Volume PEEP Sodium 144 143 Potassium 5.3 H 5.0 Chloride 112 H 112 H Carbon Dioxide 20 L 19 L Anion Gap 17 17 BUN 40 H 43 H Creatinine 2.7 H 2.8 H Est GFR ( Amer) 21 20 Est GFR (Non-Af Amer) 17 16 POC Glucose (mg/dL) Random Glucose 239 H 266 H Calcium 9.3 9.1 Phosphorus 7.6 H Magnesium 2.1 Total Bilirubin 0.5 0.5 AST 238 H D 218 H ALT 137 H D 136 H Alkaline Phosphatase 127 H D 120 Total Creatine Kinase Troponin I 8.3400 H* Total Protein 6.4 6.2 L Albumin 3.0 L 2.9 L Globulin 3.4 3.3 Albumin/Globulin Ratio 0.9 L 0.9 L Triglycerides Cholesterol LDL Cholesterol Direct HDL Cholesterol Urine Color Urine Clarity Urine pH Ur Specific [place] Urine Protein Urine Glucose (UA) Urine Ketones Urine Blood Urine Nitrate Urine Bilirubin Urine Urobilinogen Ur Leukocyte Esterase Urine RBC (Auto) Urine Microscopic WBC Ur Squamous Epith Cells Ur Random Creatinine U Random Total Protein Ur Random Sodium 09/13/16 09/13/16 09/13/16 12:33 13:20 14:48 WBC RBC Hgb Hct MCV MCH MCHC RDW Plt Count MPV Neut % (Auto) Lymph % (Auto) Major % (Auto) Eos % (Auto) Baso % (Auto) Neut # Lymph # Major # Eos # Baso # Neutrophils % (Manual) Band Neutrophils % Lymphocytes % (Manual) Monocytes % (Manual) Basophils % (Manual) Platelet Estimate Hypochromasia (manual) Anisocytosis (manual) Tear Drop Cells Ovalocytes Schistocytes APTT pCO2 pO2 HCO3 ABG pH ABG Total CO2 ABG O2 Saturation ABG O2 Content ABG Base Excess ABG Hemoglobin ABG Carboxyhemoglobin POC ABG HHb (Measured) ABG Methemoglobin ABG O2 Capacity Darrell Test A-a O2 Difference Hgb O2 Saturation Vent Mode Mechanical Rate FiO2 Tidal Volume PEEP Sodium Potassium Chloride Carbon Dioxide Anion Gap BUN Creatinine Est GFR ( Amer) Est GFR (Non-Af Amer) POC Glucose (mg/dL) 268 H Random Glucose Calcium Phosphorus Magnesium Total Bilirubin AST ALT Alkaline Phosphatase Total Creatine Kinase Troponin I Total Protein Albumin Globulin Albumin/Globulin Ratio Triglycerides Cholesterol LDL Cholesterol Direct HDL Cholesterol Urine Color Red Urine Clarity Cloudy Urine pH 6.0 Ur Specific [place] 1.008 Urine Protein >=500 Urine Glucose (UA) >=500 Urine Ketones Negative Urine Blood Large Urine Nitrate Negative Urine Bilirubin Negative Urine Urobilinogen 0.2-1.0 Ur Leukocyte Esterase Trace Urine RBC (Auto) 1448 H Urine Microscopic WBC 3 Ur Squamous Epith Cells 6 H Ur Random Creatinine U Random Total Protein Ur Random Sodium 126 09/13/16 09/13/16 09/13/16 15:17 15:25 15:40 WBC RBC Hgb Hct MCV MCH MCHC RDW Plt Count MPV Neut % (Auto) Lymph % (Auto) Major % (Auto) Eos % (Auto) Baso % (Auto) Neut # Lymph # Major # Eos # Baso # Neutrophils % (Manual) Band Neutrophils % Lymphocytes % (Manual) Monocytes % (Manual) Basophils % (Manual) Platelet Estimate Hypochromasia (manual) Anisocytosis (manual) Tear Drop Cells Ovalocytes Schistocytes APTT pCO2 pO2 HCO3 ABG pH ABG Total CO2 ABG O2 Saturation ABG O2 Content ABG Base Excess ABG Hemoglobin ABG Carboxyhemoglobin POC ABG HHb (Measured) ABG Methemoglobin ABG O2 Capacity Darrell Test A-a O2 Difference Hgb O2 Saturation Vent Mode Mechanical Rate FiO2 Tidal Volume PEEP Sodium Potassium Chloride Carbon Dioxide Anion Gap BUN Creatinine Est GFR ( Amer) Est GFR (Non-Af Amer) POC Glucose (mg/dL) 287 H Random Glucose Calcium 8.6 Phosphorus Magnesium Total Bilirubin AST ALT Alkaline Phosphatase Total Creatine Kinase Troponin I 13.4000 H* Total Protein Albumin Globulin Albumin/Globulin Ratio Triglycerides Cholesterol LDL Cholesterol Direct HDL Cholesterol Urine Color Urine Clarity Urine pH Ur Specific [place] Urine Protein Urine Glucose (UA) Urine Ketones Urine Blood Urine Nitrate Urine Bilirubin Urine Urobilinogen Ur Leukocyte Esterase Urine RBC (Auto) Urine Microscopic WBC Ur Squamous Epith Cells Ur Random Creatinine 7.8 U Random Total Protein 84.0 H Ur Random Sodium 09/13/16 09/13/16 09/13/16 17:37 18:40 20:58 WBC RBC Hgb Hct MCV MCH MCHC RDW Plt Count MPV Neut % (Auto) Lymph % (Auto) Major % (Auto) Eos % (Auto) Baso % (Auto) Neut # Lymph # Major # Eos # Baso # Neutrophils % (Manual) Band Neutrophils % Lymphocytes % (Manual) Monocytes % (Manual) Basophils % (Manual) Platelet Estimate Hypochromasia (manual) Anisocytosis (manual) Tear Drop Cells Ovalocytes Schistocytes APTT pCO2 pO2 HCO3 ABG pH ABG Total CO2 ABG O2 Saturation ABG O2 Content ABG Base Excess ABG Hemoglobin ABG Carboxyhemoglobin POC ABG HHb (Measured) ABG Methemoglobin ABG O2 Capacity Darrell Test A-a O2 Difference Hgb O2 Saturation Vent Mode Mechanical Rate FiO2 Tidal Volume PEEP Sodium Potassium Chloride Carbon Dioxide Anion Gap BUN Creatinine Est GFR ( Amer) Est GFR (Non-Af Amer) POC Glucose (mg/dL) 320 H Random Glucose Calcium Phosphorus Magnesium Total Bilirubin AST ALT Alkaline Phosphatase Total Creatine Kinase 453 H Troponin I 12.2000 H* Total Protein Albumin Globulin Albumin/Globulin Ratio Triglycerides Cholesterol LDL Cholesterol Direct HDL Cholesterol Urine Color Urine Clarity Urine pH Ur Specific [place] Urine Protein Urine Glucose (UA) Urine Ketones Urine Blood Urine Nitrate Urine Bilirubin Urine Urobilinogen Ur Leukocyte Esterase Urine RBC (Auto) Urine Microscopic WBC Ur Squamous Epith Cells Ur Random Creatinine U Random Total Protein Ur Random Sodium 09/13/16 09/14/16 09/14/16 23:40 03:05 04:20 WBC 19.5 H RBC 4.47 Hgb 9.6 L Hct 32.1 L MCV 71.9 L D MCH 21.5 L MCHC 29.8 L RDW 17.5 H Plt Count 299 MPV 8.7 Neut % (Auto) 91.2 H Lymph % (Auto) 5.8 L Major % (Auto) 2.9 Eos % (Auto) 0.0 Baso % (Auto) 0.1 Neut # 17.8 H Lymph # 1.1 Major # 0.6 Eos # 0.0 Baso # 0.0 Neutrophils % (Manual) 87 H Band Neutrophils % 3 H Lymphocytes % (Manual) 7 L Monocytes % (Manual) 2 Basophils % (Manual) 1 Platelet Estimate Normal Hypochromasia (manual) Slight Anisocytosis (manual) Slight Tear Drop Cells Slight Ovalocytes Slight Schistocytes Slight APTT 29.2 pCO2 pO2 HCO3 ABG pH ABG Total CO2 ABG O2 Saturation ABG O2 Content ABG Base Excess ABG Hemoglobin ABG Carboxyhemoglobin POC ABG HHb (Measured) ABG Methemoglobin ABG O2 Capacity Darrell Test A-a O2 Difference Hgb O2 Saturation Vent Mode Mechanical Rate FiO2 Tidal Volume PEEP Sodium Potassium Chloride Carbon Dioxide Anion Gap BUN Creatinine Est GFR ( Amer) Est GFR (Non-Af Amer) POC Glucose (mg/dL) 354 H Random Glucose Calcium Phosphorus Magnesium Total Bilirubin AST ALT Alkaline Phosphatase Total Creatine Kinase Troponin I Total Protein Albumin Globulin Albumin/Globulin Ratio Triglycerides Cholesterol LDL Cholesterol Direct HDL Cholesterol Urine Color Urine Clarity Urine pH Ur Specific [place] Urine Protein Urine Glucose (UA) Urine Ketones Urine Blood Urine Nitrate Urine Bilirubin Urine Urobilinogen Ur Leukocyte Esterase Urine RBC (Auto) Urine Microscopic WBC Ur Squamous Epith Cells Ur Random Creatinine U Random Total Protein Ur Random Sodium 09/14/16 09/14/16 09/14/16 04:20 05:17 09:20 WBC RBC Hgb Hct MCV MCH MCHC RDW Plt Count MPV Neut % (Auto) Lymph % (Auto) Major % (Auto) Eos % (Auto) Baso % (Auto) Neut # Lymph # Major # Eos # Baso # Neutrophils % (Manual) Band Neutrophils % Lymphocytes % (Manual) Monocytes % (Manual) Basophils % (Manual) Platelet Estimate Hypochromasia (manual) Anisocytosis (manual) Tear Drop Cells Ovalocytes Schistocytes APTT pCO2 32 L pO2 109 H HCO3 23.5 ABG pH 7.44 ABG Total CO2 22.7 ABG O2 Saturation 99.4 H ABG O2 Content 14.5 L ABG Base Excess -1.9 ABG Hemoglobin 10.5 L ABG Carboxyhemoglobin 1.1 POC ABG HHb (Measured) 0.6 ABG Methemoglobin 1.1 ABG O2 Capacity 14.6 L Darrell Test Yes A-a O2 Difference 564.0 Hgb O2 Saturation 97.1 Vent Mode Prvc/ac Mechanical Rate 18 FiO2 100.0 Tidal Volume 500 PEEP 8 Sodium 144 143 Potassium 3.4 L 3.3 L Chloride 109 H 109 H Carbon Dioxide 22 22 Anion Gap 16 15 BUN 51 H 53 H Creatinine 3.6 H 3.7 H Est GFR ( Amer) 15 14 Est GFR (Non-Af Amer) 12 12 POC Glucose (mg/dL) Random Glucose 327 H 343 H Calcium 8.6 8.6 Phosphorus Magnesium Total Bilirubin 0.5 AST 168 H D ALT 102 H D Alkaline Phosphatase 103 Total Creatine Kinase Troponin I Total Protein 6.0 L Albumin 2.8 L Globulin 3.2 Albumin/Globulin Ratio 0.9 L Triglycerides 90 Cholesterol < 50 LDL Cholesterol Direct < 30 HDL Cholesterol 23 L Urine Color Urine Clarity Urine pH Ur Specific [place] Urine Protein Urine Glucose (UA) Urine Ketones Urine Blood Urine Nitrate Urine Bilirubin Urine Urobilinogen Ur Leukocyte Esterase Urine RBC (Auto) Urine Microscopic WBC Ur Squamous Epith Cells Ur Random Creatinine U Random Total Protein Ur Random Sodium 09/14/16 09:25 WBC RBC Hgb Hct MCV MCH MCHC RDW Plt Count MPV Neut % (Auto) Lymph % (Auto) Major % (Auto) Eos % (Auto) Baso % (Auto) Neut # Lymph # Major # Eos # Baso # Neutrophils % (Manual) Band Neutrophils % Lymphocytes % (Manual) Monocytes % (Manual) Basophils % (Manual) Platelet Estimate Hypochromasia (manual) Anisocytosis (manual) Tear Drop Cells Ovalocytes Schistocytes APTT pCO2 pO2 HCO3 ABG pH ABG Total CO2 ABG O2 Saturation ABG O2 Content ABG Base Excess ABG Hemoglobin ABG Carboxyhemoglobin POC ABG HHb (Measured) ABG Methemoglobin ABG O2 Capacity Darrell Test A-a O2 Difference Hgb O2 Saturation Vent Mode Mechanical Rate FiO2 Tidal Volume PEEP Sodium Potassium Chloride Carbon Dioxide Anion Gap BUN Creatinine Est GFR ( Amer) Est GFR (Non-Af Amer) POC Glucose (mg/dL) 362 H Random Glucose Calcium Phosphorus Magnesium Total Bilirubin AST ALT Alkaline Phosphatase Total Creatine Kinase Troponin I Total Protein Albumin Globulin Albumin/Globulin Ratio Triglycerides Cholesterol LDL Cholesterol Direct HDL Cholesterol Urine Color Urine Clarity Urine pH Ur Specific [place] Urine Protein Urine Glucose (UA) Urine Ketones Urine Blood Urine Nitrate Urine Bilirubin Urine Urobilinogen Ur Leukocyte Esterase Urine RBC (Auto) Urine Microscopic WBC Ur Squamous Epith Cells Ur Random Creatinine U Random Total Protein Ur Random Sodium
[2016-09-13 12:24] LABS: TROPONIN I 8.34 ng/mL (0.00-0.120)
[2016-09-13] MEDS: Azithromycin 500 MG in Sodium Chloride 0.9% 250 ML IVPB SCH (13:06)
--- NOTE | 2016-09-13 13:56 | CP.PCM.CON ---
History of Present Illness - History of Present Illness History of Present Illness: 75 y/o female with Hx/o CAD, CHF, chronic kidney dis. followed by Dr Beasley in the office, PVD with stent in leg artery, DM & recent 2 TIAs is admitted to ICU after she sferred cardiac arrest this morning. According to the family Pt was in the bathroom when she suddenly started gasping for breath & passed out, Paramedics were called Pt was intubated , treated for PEA & brought to ER Renal consult is requested for evaluation of renal function. Review of Systems - Respiratory Respiratory: Dyspnea Past Patient History - Past Medical History & Family History Past Medical History?: Yes - Past Social History Smoking Status: Never Smoked - CARDIAC Hx Cardiac Disorders: Yes Hx Angina: Yes Hx Atrial Fibrillation: No Hx Cardia Arrhythmia: No Hx Circulatory Problems: Yes Hx Congestive Heart Failure: Yes Hx Heart Attack: Yes Hx Heart Transplant: No Hx Hypertension: Yes Hx Peripheral Vascular Disease: Yes - PULMONARY Hx Respiratory Disorders: No - NEUROLOGICAL Hx Neurological Disorder: Yes Hx Alzheimer's Disease: No HX Cerebrovascular Accident: No Hx Transient Ischemic Attacks (TIA): Yes - HEENT Hx HEENT Problems: No - RENAL Hx Chronic Kidney Disease: Yes Hx Dialysis: No Hx Kidney Stones: No - ENDOCRINE/METABOLIC Hx Endocrine Disorders: Yes Hx Diabetes Mellitus Type 2: Yes - HEMATOLOGICAL/ONCOLOGICAL Hx Blood Disorders: No Hx Anemia: Yes - INTEGUMENTARY Hx Dermatological Problems: No - MUSCULOSKELETAL/RHEUMATOLOGICAL Hx Musculoskeletal Disorders: No - GASTROINTESTINAL Hx Gastrointestinal Disorders: No - GENITOURINARY/GYNECOLOGICAL Hx Genitourinary Disorders: No - PSYCHIATRIC Hx Substance Use: No - SURGICAL HISTORY Hx Coronary Stent: Yes - ANESTHESIA Hx Anesthesia: Yes Meds Allergies/Adverse Reactions: Allergies Allergy/AdvReac Type Severity Reaction Status Date / Time No Known Allergies Allergy Verified 09/13/16 07:44 - Medications Medications: Current Medications Artificial Tears (Lacri-Lube) 1 applic OU HS [facility] Propofol (Diprivan) 1,000 mg in 100 mls @ 3.538 mls/hr IV .Q24H ONE; 5 MCG/KG/ MIN PRN Reason: Protocol Stop: 09/14/16 04:14 Last Admin: 09/13/16 04:47 Dose: 3.538 mls/hr Sodium Bicarbonate 150 meq/ (Dextrose) 1,150 mls @ 60 mls/hr IV .[id number] [facility] Stop: 09/14/16 03:52 Last Admin: 09/13/16 05:18 Dose: 60 mls/hr Sodium Chloride (Sodium Chloride 0.9%) 2,000 mls @ 1,000 mls/hr IV .Q2H [facility] Stop: 09/14/16 05:26 Last Admin: 09/13/16 03:30 Dose: 1,000 mls/hr Ceftriaxone Sodium 1 gm/ (Sodium Chloride) 100 mls @ 100 mls/hr IVPB DAILY [facility] Last Admin: 09/13/16 11:48 Dose: 100 mls/hr Azithromycin 500 mg/ Sodium (Chloride) 250 mls @ 250 mls/hr IVPB DAILY [facility] Last Admin: 09/13/16 13:06 Dose: 250 mls/hr Insulin Human Lispro (Humalog) 0 units SC Q6H [facility] PRN Reason: Protocol Last Admin: 09/13/16 10:48 Dose: 2 u Pantoprazole Sodium (Protonix Inj) 40 mg IVP DAILY [facility] Last Admin: 09/13/16 09:38 Dose: 40 mg Physical Exam - Constitutional Additional comments: Sedated. Intubated on ventilator support - Eye Exam Additional comments: No icterus - ENT Exam ENT Exam: Mucous Membranes Moist - Neck Exam Additional comments: JVD + @ 35 degrees - Respiratory Exam Additional comments: Lungs clear anteriorly - Cardiovascular Exam Cardiovascular Exam: REGULAR RHYTHM - GI/Abdominal Exam GI & Abdominal Exam: Soft - Extremities Exam Additional comments: Trace bipedal edema - Neurological Exam Additional comments: Pt is sedated. EOMs intact Results - Vital Signs Recent Vital Signs: Last Vital Signs Temp 98.7 F 09/13/16 12:00 Pulse 53 L 09/13/16 12:00 Resp 18 09/13/16 12:00 BP 141/57 L 09/13/16 12:00 Pulse Ox 99 09/13/16 12:00 - Labs Result Diagrams: 09/13/16 09:00 09/13/16 11:30 Labs: Laboratory Results - last 24 hr 09/13/16 09/13/16 09/13/16 03:10 03:10 03:10 WBC 18.2 H RBC 3.80 Hgb 8.6 L Hct 29.9 L MCV 78.7 L MCH 22.7 L MCHC 28.8 L RDW 17.9 H Plt Count 342 PT 12.7 INR 1.1 APTT 25.2 L pCO2 pO2 HCO3 ABG pH ABG Total CO2 ABG O2 Saturation ABG O2 Content ABG Base Excess ABG Hemoglobin ABG Carboxyhemoglobin POC ABG HHb (Measured) ABG Methemoglobin ABG O2 Capacity Darrell Test ABG Potassium A-a O2 Difference Hgb O2 Saturation Glucose Lactate Vent Mode Mechanical Rate FiO2 Tidal Volume PEEP Pressure Support Blood Gas Comments Crit Value Called To Crit Value Called By Crit Value Read Back Blood Gas Notified Time Sodium 144 Potassium 4.2 Chloride 113 H Carbon Dioxide 17 L Anion Gap 18 BUN 33 H Creatinine 2.2 H Est GFR ( Amer) 26 Est GFR (Non-Af Amer) 22 POC Glucose (mg/dL) Random Glucose 210 H Lactic Acid Calcium 13.3 H* Phosphorus 7.4 H Magnesium 2.3 Total Bilirubin 0.5 AST 81 H ALT 47 Alkaline Phosphatase 66 Troponin I 0.0780 Total Protein 6.6 Albumin 2.8 L Globulin 3.8 Albumin/Globulin Ratio 0.7 L Arterial Blood Potassium 09/13/16 09/13/16 09/13/16 03:11 08:49 09:00 WBC 22.8 H RBC 4.58 Hgb 10.0 L Hct 34.0 MCV 74.3 L D MCH 21.8 L MCHC 29.3 L RDW 17.6 H Plt Count 371 PT INR APTT pCO2 60 H pO2 160 H HCO3 10.6 L ABG pH 6.97 L* ABG Total CO2 15.6 L ABG O2 Saturation 98.7 H ABG O2 Content ABG Base Excess -18.4 L ABG Hemoglobin ABG Carboxyhemoglobin POC ABG HHb (Measured) ABG Methemoglobin ABG O2 Capacity Darrell Test Yes ABG Potassium 5.0 A-a O2 Difference 478.0 Hgb O2 Saturation Glucose 197 H Lactate 10.3 H* Vent Mode Prvc ac Mechanical Rate 12 FiO2 100.0 Tidal Volume 500 PEEP 5 Pressure Support Blood Gas Comments Crit Value Called To Remy bautista md Crit Value Called By 6075 Crit Value Read Back Y Blood Gas Notified Time 314 Sodium 143.0 Potassium Chloride 109.0 H Carbon Dioxide Anion Gap BUN Creatinine Est GFR ( Amer) Est GFR (Non-Af Amer) POC Glucose (mg/dL) 202 H Random Glucose Lactic Acid Calcium Phosphorus Magnesium Total Bilirubin AST ALT Alkaline Phosphatase Troponin I Total Protein Albumin Globulin Albumin/Globulin Ratio Arterial Blood Potassium 5.0 09/13/16 09/13/16 09/13/16 09:00 09:00 10:15 WBC RBC Hgb Hct MCV MCH MCHC RDW Plt Count PT INR APTT pCO2 57 H pO2 57 L HCO3 16.7 L ABG pH 7.13 L* ABG Total CO2 20.7 L ABG O2 Saturation 88.0 L ABG O2 Content 12.7 L ABG Base Excess -10.2 L ABG Hemoglobin 10.6 L ABG Carboxyhemoglobin 1.5 POC ABG HHb (Measured) 11.6 H ABG Methemoglobin 1.7 ABG O2 Capacity 14.4 L Darrell Test Yes ABG Potassium A-a O2 Difference 585.0 Hgb O2 Saturation 85.2 L Glucose Lactate Vent Mode Pvc/ac Mechanical Rate 12 FiO2 100.0 Tidal Volume 500 PEEP 5 Pressure Support 0 Blood Gas Comments Vt 500 pr/ac 12 io2 100% peep 5 Crit Value Called To Dr brianna talley Crit Value Called By 162 Crit Value Read Back Y Blood Gas Notified Time 1026 Sodium 144 Potassium 5.3 H Chloride 112 H Carbon Dioxide 20 L Anion Gap 17 BUN 40 H Creatinine 2.7 H Est GFR ( Amer) 21 Est GFR (Non-Af Amer) 17 POC Glucose (mg/dL) Random Glucose 239 H Lactic Acid 2.4 H Calcium 9.3 Phosphorus 7.6 H Magnesium 2.1 Total Bilirubin 0.5 AST 238 H D ALT 137 H D Alkaline Phosphatase 127 H D Troponin I Total Protein 6.4 Albumin 3.0 L Globulin 3.4 Albumin/Globulin Ratio 0.9 L Arterial Blood Potassium 09/13/16 09/13/16 11:30 12:33 WBC RBC Hgb Hct MCV MCH MCHC RDW Plt Count PT INR APTT pCO2 pO2 HCO3 ABG pH ABG Total CO2 ABG O2 Saturation ABG O2 Content ABG Base Excess ABG Hemoglobin ABG Carboxyhemoglobin POC ABG HHb (Measured) ABG Methemoglobin ABG O2 Capacity Darrell Test ABG Potassium A-a O2 Difference Hgb O2 Saturation Glucose Lactate Vent Mode Mechanical Rate FiO2 Tidal Volume PEEP Pressure Support Blood Gas Comments Crit Value Called To Crit Value Called By Crit Value Read Back Blood Gas Notified Time Sodium 143 Potassium 5.0 Chloride 112 H Carbon Dioxide 19 L Anion Gap 17 BUN 43 H Creatinine 2.8 H Est GFR ( Amer) 20 Est GFR (Non-Af Amer) 16 POC Glucose (mg/dL) 268 H Random Glucose 266 H Lactic Acid Calcium 9.1 Phosphorus Magnesium Total Bilirubin 0.5 AST 218 H ALT 136 H Alkaline Phosphatase 120 Troponin I 8.3400 H* Total Protein 6.2 L Albumin 2.9 L Globulin 3.3 Albumin/Globulin Ratio 0.9 L Arterial Blood Potassium Assessment & Plan - Assessment and Plan (Free Text) Assessment: S/P cardiac arrest Respiratory failure B/L pnemonia, sepsis Stage 1V kidney disease Elevated troponin ,S/P resuscitation Plan: Continue current Mx Monitor K+ , urine output, Phos binders
[2016-09-13 14:03] LABS: SQUAMOUS EPITHIAL 6 /hpf (0-5); URINE BILIRUBIN NEGATIVE (NEGATIVE); URINE BLOOD LARGE (NEGATIVE); URINE CLARITY CLOUDY (Clear); URINE COLOR RED (YELLOW); URINE GLUCOSE (UA) >=500 mg/dL (Normal); URINE LEUKOCYTE ESTERASE TRACE Leu/uL (Negative); URINE NITRATE NEGATIVE (NEGATIVE); URINE PROTEIN >=500 mg/dL (NEGATIVE); URINE UROBILINOGEN 0.2-1.0 mg/dL (0.2-1.0)
[2016-09-13 15:39] LABS: CREATININE, RANDOM URINE 7.8 mg/dL
--- NOTE | 2016-09-13 17:31 | CP.PCM.CON ---
History of Present Illness - History of Present Illness History of Present Illness: I was asked to see patient after cardiac arrest. Patient is a 75 year old female with PMH HTN, chronic renal insufficiency, PAD, severe who presents after respiratory arrest. The patient has known severe by echocardiogram. THere have been multiple discussions with the patient and her daughter regarding furhter evaluation and management, which included cardaic catheterization. Due to concerns for progressive renal failure and contrast induced nephropathy resulting in dialysis, the patient refused cardaic cath. She was at home when she developed acute progressive dyspnea. She required intubation. She is currently in ICU. Multiple family members are present. Review of Systems - Review of Systems Systems not reviewed;Unavailable: Intubated Past Patient History - Past Medical History & Family History Past Medical History?: Yes - Past Social History Smoking Status: Never Smoked - CARDIAC Hx Cardiac Disorders: Yes Hx Angina: Yes Hx Atrial Fibrillation: No Hx Cardia Arrhythmia: No Hx Circulatory Problems: Yes Hx Congestive Heart Failure: Yes Hx Heart Attack: Yes Hx Heart Transplant: No Hx Hypertension: Yes Hx Peripheral Vascular Disease: Yes - PULMONARY Hx Respiratory Disorders: No - NEUROLOGICAL Hx Neurological Disorder: Yes Hx Alzheimer's Disease: No HX Cerebrovascular Accident: No Hx Transient Ischemic Attacks (TIA): Yes - HEENT Hx HEENT Problems: No - RENAL Hx Chronic Kidney Disease: Yes Hx Dialysis: No Hx Kidney Stones: No - ENDOCRINE/METABOLIC Hx Endocrine Disorders: Yes Hx Diabetes Mellitus Type 2: Yes - HEMATOLOGICAL/ONCOLOGICAL Hx Blood Disorders: No Hx Anemia: Yes - INTEGUMENTARY Hx Dermatological Problems: No - MUSCULOSKELETAL/RHEUMATOLOGICAL Hx Musculoskeletal Disorders: No - GASTROINTESTINAL Hx Gastrointestinal Disorders: No - GENITOURINARY/GYNECOLOGICAL Hx Genitourinary Disorders: No - PSYCHIATRIC Hx Substance Use: No - SURGICAL HISTORY Hx Coronary Stent: Yes - ANESTHESIA Hx Anesthesia: Yes Meds Allergies/Adverse Reactions: Allergies Allergy/AdvReac Type Severity Reaction Status Date / Time No Known Allergies Allergy Verified 09/13/16 07:44 - Medications Medications: Current Medications Artificial Tears (Lacri-Lube) 1 applic OU HS [facility] Propofol (Diprivan) 1,000 mg in 100 mls @ 3.538 mls/hr IV .Q24H ONE; 5 MCG/KG/ MIN PRN Reason: Protocol Stop: 09/14/16 04:14 Last Admin: 09/13/16 04:47 Dose: 3.538 mls/hr Sodium Bicarbonate 150 meq/ (Dextrose) 1,150 mls @ 60 mls/hr IV .[id number] [facility] Stop: 09/14/16 03:52 Last Admin: 09/13/16 05:18 Dose: 60 mls/hr Sodium Chloride (Sodium Chloride 0.9%) 2,000 mls @ 1,000 mls/hr IV .Q2H [facility] Stop: 09/14/16 05:26 Last Admin: 09/13/16 03:30 Dose: 1,000 mls/hr Ceftriaxone Sodium 1 gm/ (Sodium Chloride) 100 mls @ 100 mls/hr IVPB DAILY [facility] Last Admin: 09/13/16 11:48 Dose: 100 mls/hr Azithromycin 500 mg/ Sodium (Chloride) 250 mls @ 250 mls/hr IVPB DAILY [facility] Last Admin: 09/13/16 13:06 Dose: 250 mls/hr Insulin Human Lispro (Humalog) 0 units SC Q6H [facility] PRN Reason: Protocol Last Admin: 09/13/16 15:45 Dose: 3 u Pantoprazole Sodium (Protonix Inj) 40 mg IVP DAILY [facility] Last Admin: 09/13/16 09:38 Dose: 40 mg Physical Exam - Constitutional Appears: Toxic - Head Exam Head Exam: NORMAL INSPECTION - Eye Exam Eye Exam: Normal appearance - ENT Exam ENT Exam: Mucous Membranes Moist - Neck Exam Neck exam: Negative for: Thyromegaly - Respiratory Exam Respiratory Exam: Decreased Breath Sounds - Cardiovascular Exam Cardiovascular Exam: REGULAR RHYTHM, Systolic Murmur - GI/Abdominal Exam GI & Abdominal Exam: Normal Bowel Sounds - Rectal Exam Rectal Exam: Deferred - Extremities Exam Extremities exam: Negative for: pedal edema - Skin Skin Exam: Normal Color Results - Vital Signs Recent Vital Signs: Last Vital Signs Temp 93.6 F L 09/13/16 16:00 Pulse 70 09/13/16 16:00 Resp 18 09/13/16 15:00 BP 142/73 09/13/16 15:00 Pulse Ox 99 09/13/16 12:00 - Labs Result Diagrams: 09/13/16 09:00 09/13/16 11:30 Labs: Laboratory Results - last 24 hr 09/13/16 09/13/16 09/13/16 03:10 03:10 03:10 WBC 18.2 H RBC 3.80 Hgb 8.6 L Hct 29.9 L MCV 78.7 L MCH 22.7 L MCHC 28.8 L RDW 17.9 H Plt Count 342 PT 12.7 INR 1.1 APTT 25.2 L pCO2 pO2 HCO3 ABG pH ABG Total CO2 ABG O2 Saturation ABG O2 Content ABG Base Excess ABG Hemoglobin ABG Carboxyhemoglobin POC ABG HHb (Measured) ABG Methemoglobin ABG O2 Capacity Darrell Test ABG Potassium A-a O2 Difference Hgb O2 Saturation Glucose Lactate Vent Mode Mechanical Rate FiO2 Tidal Volume PEEP Pressure Support Blood Gas Comments Crit Value Called To Crit Value Called By Crit Value Read Back Blood Gas Notified Time Sodium 144 Potassium 4.2 Chloride 113 H Carbon Dioxide 17 L Anion Gap 18 BUN 33 H Creatinine 2.2 H Est GFR ( Amer) 26 Est GFR (Non-Af Amer) 22 POC Glucose (mg/dL) Random Glucose 210 H Lactic Acid Calcium 13.3 H* Phosphorus 7.4 H Magnesium 2.3 Total Bilirubin 0.5 AST 81 H ALT 47 Alkaline Phosphatase 66 Troponin I 0.0780 Total Protein 6.6 Albumin 2.8 L Globulin 3.8 Albumin/Globulin Ratio 0.7 L Arterial Blood Potassium Urine Color Urine Clarity Urine pH Ur Specific [place] Urine Protein Urine Glucose (UA) Urine Ketones Urine Blood Urine Nitrate Urine Bilirubin Urine Urobilinogen Ur Leukocyte Esterase Urine RBC (Auto) Urine Microscopic WBC Ur Squamous Epith Cells Ur Random Creatinine U Random Total Protein Ur Random Sodium 09/13/16 09/13/16 09/13/16 03:11 08:49 09:00 WBC 22.8 H RBC 4.58 Hgb 10.0 L Hct 34.0 MCV 74.3 L D MCH 21.8 L MCHC 29.3 L RDW 17.6 H Plt Count 371 PT INR APTT pCO2 60 H pO2 160 H HCO3 10.6 L ABG pH 6.97 L* ABG Total CO2 15.6 L ABG O2 Saturation 98.7 H ABG O2 Content ABG Base Excess -18.4 L ABG Hemoglobin ABG Carboxyhemoglobin POC ABG HHb (Measured) ABG Methemoglobin ABG O2 Capacity Darrell Test Yes ABG Potassium 5.0 A-a O2 Difference 478.0 Hgb O2 Saturation Glucose 197 H Lactate 10.3 H* Vent Mode Prvc ac Mechanical Rate 12 FiO2 100.0 Tidal Volume 500 PEEP 5 Pressure Support Blood Gas Comments Crit Value Called To Remy bautista md Crit Value Called By 6075 Crit Value Read Back Y Blood Gas Notified Time 314 Sodium 143.0 Potassium Chloride 109.0 H Carbon Dioxide Anion Gap BUN Creatinine Est GFR ( Amer) Est GFR (Non-Af Amer) POC Glucose (mg/dL) 202 H Random Glucose Lactic Acid Calcium Phosphorus Magnesium Total Bilirubin AST ALT Alkaline Phosphatase Troponin I Total Protein Albumin Globulin Albumin/Globulin Ratio Arterial Blood Potassium 5.0 Urine Color Urine Clarity Urine pH Ur Specific [place] Urine Protein Urine Glucose (UA) Urine Ketones Urine Blood Urine Nitrate Urine Bilirubin Urine Urobilinogen Ur Leukocyte Esterase Urine RBC (Auto) Urine Microscopic WBC Ur Squamous Epith Cells Ur Random Creatinine U Random Total Protein Ur Random Sodium 09/13/16 09/13/16 09/13/16 09:00 09:00 10:15 WBC RBC Hgb Hct MCV MCH MCHC RDW Plt Count PT INR APTT pCO2 57 H pO2 57 L HCO3 16.7 L ABG pH 7.13 L* ABG Total CO2 20.7 L ABG O2 Saturation 88.0 L ABG O2 Content 12.7 L ABG Base Excess -10.2 L ABG Hemoglobin 10.6 L ABG Carboxyhemoglobin 1.5 POC ABG HHb (Measured) 11.6 H ABG Methemoglobin 1.7 ABG O2 Capacity 14.4 L Darrell Test Yes ABG Potassium A-a O2 Difference 585.0 Hgb O2 Saturation 85.2 L Glucose Lactate Vent Mode Pvc/ac Mechanical Rate 12 FiO2 100.0 Tidal Volume 500 PEEP 5 Pressure Support 0 Blood Gas Comments Vt 500 pr/ac 12 io2 100% peep 5 Crit Value Called To Dr brianna talley Crit Value Called By 162 Crit Value Read Back Y Blood Gas Notified Time 1026 Sodium 144 Potassium 5.3 H Chloride 112 H Carbon Dioxide 20 L Anion Gap 17 BUN 40 H Creatinine 2.7 H Est GFR ( Amer) 21 Est GFR (Non-Af Amer) 17 POC Glucose (mg/dL) Random Glucose 239 H Lactic Acid 2.4 H Calcium 9.3 Phosphorus 7.6 H Magnesium 2.1 Total Bilirubin 0.5 AST 238 H D ALT 137 H D Alkaline Phosphatase 127 H D Troponin I Total Protein 6.4 Albumin 3.0 L Globulin 3.4 Albumin/Globulin Ratio 0.9 L Arterial Blood Potassium Urine Color Urine Clarity Urine pH Ur Specific [place] Urine Protein Urine Glucose (UA) Urine Ketones Urine Blood Urine Nitrate Urine Bilirubin Urine Urobilinogen Ur Leukocyte Esterase Urine RBC (Auto) Urine Microscopic WBC Ur Squamous Epith Cells Ur Random Creatinine U Random Total Protein Ur Random Sodium 09/13/16 09/13/16 09/13/16 11:30 12:33 13:20 WBC RBC Hgb Hct MCV MCH MCHC RDW Plt Count PT INR APTT pCO2 pO2 HCO3 ABG pH ABG Total CO2 ABG O2 Saturation ABG O2 Content ABG Base Excess ABG Hemoglobin ABG Carboxyhemoglobin POC ABG HHb (Measured) ABG Methemoglobin ABG O2 Capacity Darrell Test ABG Potassium A-a O2 Difference Hgb O2 Saturation Glucose Lactate Vent Mode Mechanical Rate FiO2 Tidal Volume PEEP Pressure Support Blood Gas Comments Crit Value Called To Crit Value Called By Crit Value Read Back Blood Gas Notified Time Sodium 143 Potassium 5.0 Chloride 112 H Carbon Dioxide 19 L Anion Gap 17 BUN 43 H Creatinine 2.8 H Est GFR ( Amer) 20 Est GFR (Non-Af Amer) 16 POC Glucose (mg/dL) 268 H Random Glucose 266 H Lactic Acid Calcium 9.1 Phosphorus Magnesium Total Bilirubin 0.5 AST 218 H ALT 136 H Alkaline Phosphatase 120 Troponin I 8.3400 H* Total Protein 6.2 L Albumin 2.9 L Globulin 3.3 Albumin/Globulin Ratio 0.9 L Arterial Blood Potassium Urine Color Red Urine Clarity Cloudy Urine pH 6.0 Ur Specific [place] 1.008 Urine Protein >=500 Urine Glucose (UA) >=500 Urine Ketones Negative Urine Blood Large Urine Nitrate Negative Urine Bilirubin Negative Urine Urobilinogen 0.2-1.0 Ur Leukocyte Esterase Trace Urine RBC (Auto) 1448 H Urine Microscopic WBC 3 Ur Squamous Epith Cells 6 H Ur Random Creatinine U Random Total Protein Ur Random Sodium 09/13/16 09/13/16 09/13/16 14:48 15:17 15:40 WBC RBC Hgb Hct MCV MCH MCHC RDW Plt Count PT INR APTT pCO2 pO2 HCO3 ABG pH ABG Total CO2 ABG O2 Saturation ABG O2 Content ABG Base Excess ABG Hemoglobin ABG Carboxyhemoglobin POC ABG HHb (Measured) ABG Methemoglobin ABG O2 Capacity Darrell Test ABG Potassium A-a O2 Difference Hgb O2 Saturation Glucose Lactate Vent Mode Mechanical Rate FiO2 Tidal Volume PEEP Pressure Support Blood Gas Comments Crit Value Called To Crit Value Called By Crit Value Read Back Blood Gas Notified Time Sodium Potassium Chloride Carbon Dioxide Anion Gap BUN Creatinine Est GFR ( Amer) Est GFR (Non-Af Amer) POC Glucose (mg/dL) 287 H Random Glucose Lactic Acid Calcium Phosphorus Magnesium Total Bilirubin AST ALT Alkaline Phosphatase Troponin I Total Protein Albumin Globulin Albumin/Globulin Ratio Arterial Blood Potassium Urine Color Urine Clarity Urine pH Ur Specific [place] Urine Protein Urine Glucose (UA) Urine Ketones Urine Blood Urine Nitrate Urine Bilirubin Urine Urobilinogen Ur Leukocyte Esterase Urine RBC (Auto) Urine Microscopic WBC Ur Squamous Epith Cells Ur Random Creatinine 7.8 U Random Total Protein 84.0 H Ur Random Sodium 126 - EKG Data EKG Interpreted by: Myself EKG shows normal: Sinus rhythm Assessment & Plan (1) NSTEMI (non-ST elevated myocardial infarction) Assessment and Plan: patient likely has underlying CAD. Recommend heparin drip. antiplatelet therapy Status: Acute (2) Severe aortic stenosis Assessment and Plan: liklely contributor to patient's event. continue suppportive therapy Status: Acute (3) Cardiac arrest Assessment and Plan: hypothermia Status: Acute
[2016-09-13] MEDS: Mineral Oil/White Petrolatum Ophth Oint OU SCH (21:48)
[2016-09-13] MEDS: Labetalol 5 mg/ml Inj 20ML IVP PRN (22:44)
[2016-09-14 00:20] LABS: BASO % 0.1 % (0.0-2.0); EOS % 0.2 % (0.0-4.0); HEMOGLOBIN 9.6 g/dL (12.0-16.0); LYMPH # 1.1 K/uL (1.0-4.3); LYMPH % 5.9 % (20.0-40.0); MEAN CELL VOLUME 72.3 fl (81.0-99.0); MEAN CORPUSCULAR HEMOGLOBIN 21.1 pg (27.0-31.0); MEAN CORPUSCULAR HGB CONC 29.2 g/dL (33.0-37.0); MEAN PLATELET VOLUME 8.2 fl (7.2-11.7); MONO # 0.7 K/uL (0.0-0.8); MONO % 3.7 % (0.0-10.0); NEUT # 16.8 K/uL (1.8-7.0); NEUT % 90.1 % (50.0-75.0); PLATELET COUNT 297 K/uL (130-400); RBC 4.53 Mil/uL (3.80-5.20); RED CELL DISTRIBUTION WIDTH 17.9 % (11.5-14.5); WHITE BLOOD COUNT 18.6 K/uL (4.8-10.8)
[2016-09-14] MEDS: Sodium Bicarbonate 8.4% 150 MEQ in Dextrose 5% In Water 1,000 ML IV SCH (00:30)
[2016-09-14 00:33] LABS: CALCIUM 8.6 mg/dL (8.4-10.2); MAGNESIUM 1.8 MG/DL (1.6-2.3)
[2016-09-14 00:33] LABS: CALCIUM 8.6 mg/dL (8.4-10.2)
[2016-09-14 00:34] LABS: INR 1.2 (0.9-1.2); PROTHROMBIN TIME 14.1 Seconds (9.8-13.1)
[2016-09-14 00:50] LABS: TROPONIN I 13.4 ng/mL (0.00-0.120)
[2016-09-14 01:20] LABS: LYMPHOCYTE 7 % (20-50); METAMYELOCYTE 2 % (0-0); MONOCYTE 2 % (0-10); MYELOCYTE 1 % (0-0); NEUTROPHIL 88 % (42-75); NUCLEATED RED BLOOD CELL 1 % (0-0); TOTAL CELLS COUNTED 100
[2016-09-14 01:21] LABS: ANISOCYTOSIS SLIGHT; MICROCYTOSIS SLIGHT; PLATELET ESTIMATE NORMAL (NORMAL)
[2016-09-14 01:22] LABS: HYPOCHROMIC SLIGHT; POLYCHROMIC SLIGHT; TARGET CELLS SLIGHT
[2016-09-14 01:23] LABS: OVALOCYTES SLIGHT
[2016-09-14] MEDS: Labetalol 5 mg/ml Inj 20ML IVP PRN ×2 (02:34→16:05)
[2016-09-14] MEDS: Insulin Lispro (humaLOG) 100 Units/ml Inj SC SCH ×4 (03:08→21:16)
[2016-09-14 05:25] LABS: ABG ALLEN TEST YES; ARTERIAL BLOOD GAS HCO3 23.5 mmol/L (21-28); ARTERIAL BLOOD GAS HEMOGLOBIN 10.5 g/dL (11.7-17.4); ARTERIAL BLOOD GAS O2 CAPACITY 14.6 mL/dL (16-24); ARTERIAL BLOOD GAS O2 CONTENT 14.5 ML/dL (15-23); ARTERIAL BLOOD GAS O2 SAT 99.4 % (95-98); ARTERIAL BLOOD GAS PCO2 32 mm/Hg (35-45); ARTERIAL BLOOD GAS PH 7.44 (7.35-7.45); ARTERIAL BLOOD GAS PO2 109 mm/Hg (80-100); ARTERIAL BLOOD GAS TCO2 22.7 mmol/L (22-28)
[2016-09-14 05:50] LABS: BASO % 0.1 % (0.0-2.0); HEMOGLOBIN 9.6 g/dL (12.0-16.0); LYMPH # 1.1 K/uL (1.0-4.3); LYMPH % 5.8 % (20.0-40.0); MEAN CELL VOLUME 71.9 fl (81.0-99.0); MEAN CORPUSCULAR HEMOGLOBIN 21.5 pg (27.0-31.0); MEAN CORPUSCULAR HGB CONC 29.8 g/dL (33.0-37.0); MEAN PLATELET VOLUME 8.7 fl (7.2-11.7); MONO # 0.6 K/uL (0.0-0.8); MONO % 2.9 % (0.0-10.0); NEUT # 17.8 K/uL (1.8-7.0); NEUT % 91.2 % (50.0-75.0); PLATELET COUNT 299 K/uL (130-400); RBC 4.47 Mil/uL (3.80-5.20); RED CELL DISTRIBUTION WIDTH 17.5 % (11.5-14.5); WHITE BLOOD COUNT 19.5 K/uL (4.8-10.8)
[2016-09-14 05:52] LABS: ALB/GLOB RATIO 0.9 (1.0-2.1); ALBUMIN 2.8 g/dL (3.5-5.0); ALT/SGPT 102 U/L (9-52); AST/SGOT 168 U/L (14-36); BLOOD UREA NITROGEN 51 mg/dl (7-17); CALCIUM 8.6 mg/dL (8.4-10.2); GFR AFRICAN-AMERICAN 15; GFR NON-AFRICAN AMERICAN 12; HDL CHOLESTEROL 23 MG/DL (30-70)
[2016-09-14 06:10] LABS: LDL CHOLESTEROL < 30 mg/dL (0-129)
[2016-09-14] MEDS ORDERED: Pneumococcal 23-Valent Vaccine IM ONE (06:55)
--- NOTE | 2016-09-14 08:29 | CP.PCM.PN ---
Subjective - Date & Time of Evaluation Date of Evaluation: 09/14/16 Time of Evaluation: 08:26 - Subjective Subjective: Patient is on respirator Sedated Urine output improving this morning Objective - Vital Signs/Intake and Output Vital Signs (last 24 hours): Temp Pulse Resp BP Pulse Ox 93.9 F L 65 18 170/68 H 99 09/14/16 08:00 09/14/16 08:00 09/14/16 08:00 09/14/16 08:00 09/13/16 12:00 Intake and Output: 09/14/16 09/14/16 06:59 18:59 Intake Total 660 60 Output Total 635 100 Balance 25 -40 - Medications Medications: Current Medications Artificial Tears (Lacri-Lube) 1 applic OU HS [facility] Last Admin: 09/13/16 21:48 Dose: 1 applic Ceftriaxone Sodium 1 gm/ (Sodium Chloride) 100 mls @ 100 mls/hr IVPB DAILY [facility] Last Admin: 09/13/16 11:48 Dose: 100 mls/hr Azithromycin 500 mg/ Sodium (Chloride) 250 mls @ 250 mls/hr IVPB DAILY [facility] Last Admin: 09/13/16 13:06 Dose: 250 mls/hr Insulin Human Lispro (Humalog) 0 units SC Q6H [facility] PRN Reason: Protocol Last Admin: 09/14/16 03:08 Dose: 2 u Labetalol HCl (Trandate) 20 mg IVP Q6H PRN PRN Reason: For SBP > 140 Last Admin: 09/14/16 02:34 Dose: 20 mg Pantoprazole Sodium (Protonix Inj) 40 mg IVP DAILY [facility] Last Admin: 09/13/16 09:38 Dose: 40 mg - Labs Labs: 09/14/16 04:20 09/14/16 04:20 PT 12.7 Seconds (9.8-13.1) 09/13/16 03:10 INR 1.1 (0.9-1.2) 09/13/16 03:10 APTT 29.2 Seconds (25.6-37.1) 09/13/16 23:40 - Constitutional Appears: In Acute Distress - ENT Exam ENT Exam: Mucous Membranes Moist - Cardiovascular Exam Cardiovascular Exam: absent: Rubs - GI/Abdominal Exam GI & Abdominal Exam: Normal Bowel Sounds - Extremities Exam Extremities Exam: absent: Calf Tenderness - Back Exam Back Exam: absent: CVA tenderness (L), CVA tenderness (R) - Neurological Exam Neurological Exam: Altered Assessment and Plan (1) Acute kidney injury Assessment & Plan: Patient remained on respirator was respiratory failure. Urine output started to improve however serum creatinine and kidney function worsening. Patient appeared to have acute kidney injury superimposed on chronic kidney disease stage IV previously. We will monitor the urine output and kidney function for the next 24 hours for the need for dialysis? Patient also hypokalemic this morning we will give 2 running of intravenous potassium chloride. We will order serum phosphorus and PTH level. And the rest of the medical history as follow PMHx: CAD, PAD s/p stent in RLE, IDDM Type 2, CKD stage IV (not on dialysis), 3 recent TIA's, severe aortic stenosis SurgHx: stents in LE for PAD FMHx: unknown SocHx: former smoker (quit 10 yrs ago), no Etoh, sedentary lifestyle, lives with son Status: Acute (2) Cardiac arrest Status: Acute (3) NSTEMI (non-ST elevated myocardial infarction) Status: Acute (4) Severe aortic stenosis Status: Acute
[2016-09-14 08:57] LABS: BANDS 3 % (0-2); BASOPHIL 1 % (0-2); LYMPHOCYTE 7 % (20-50); MONOCYTE 2 % (0-10); NEUTROPHIL 87 % (42-75); TOTAL CELLS COUNTED 100
[2016-09-14 08:58] LABS: ANISOCYTOSIS SLIGHT; PLATELET ESTIMATE NORMAL (NORMAL)
[2016-09-14 08:59] LABS: HYPOCHROMIC SLIGHT; OVALOCYTES SLIGHT; SCHISTOCYTES SLIGHT; TEARDROP CELLS SLIGHT
[2016-09-14] MEDS: Azithromycin 500 MG in Sodium Chloride 0.9% 250 ML IVPB SCH (09:44)
[2016-09-14 09:48] LABS: CALCIUM 8.6 mg/dL (8.4-10.2)
--- NOTE | 2016-09-14 10:25 | CP.PCM.CON ---
History of Present Illness - History of Present Illness History of Present Illness: This 75 year old female, former cigarette smoker with CAD, DM, CKD and valvular heart disease had a cardiac arrest at home, was intubated in the field and brought to hospital in an unresponsive state. She has been managed on mechanical ventilator, but has not regained consciousness. She had been in her usual state of health at home prior to the PI. The medical record is used to gain information regarding her medical history. Past Patient History - Past Medical History & Family History Past Medical History?: Yes - Past Social History Smoking Status: Former Smoker Chewing Tobacco Use: No Cigar Use: No Alcohol: None Home Situation {Lives}: With Family - CARDIAC Hx Angina: Yes Hx Circulatory Problems: Yes Hx Congestive Heart Failure: Yes Hx Heart Attack: Yes Hx Hypertension: Yes Hx Peripheral Vascular Disease: Yes - PULMONARY Hx Respiratory Disorders: No - NEUROLOGICAL Hx Transient Ischemic Attacks (TIA): Yes - HEENT Hx HEENT Problems: No - RENAL Hx Chronic Kidney Disease: Yes Hx Dialysis: No - ENDOCRINE/METABOLIC Hx Diabetes Mellitus Type 2: Yes - HEMATOLOGICAL/ONCOLOGICAL Hx Anemia: Yes - INTEGUMENTARY Hx Dermatological Problems: No - MUSCULOSKELETAL/RHEUMATOLOGICAL Hx Musculoskeletal Disorders: No - GASTROINTESTINAL Hx Gastrointestinal Disorders: No - GENITOURINARY/GYNECOLOGICAL Hx Genitourinary Disorders: No - PSYCHIATRIC Hx Psychophysiologic Disorder: No Hx Substance Use: No - SURGICAL HISTORY Hx Coronary Stent: Yes Hx Vascular Surgery: Yes - ANESTHESIA Hx Anesthesia: Yes Meds Home Medications: Home Medication List Medication Instructions Recorded Confirmed Type Atorvastatin [Lipitor] 40 mg PO HS #30 tab 09/13/16 Rx Bimatoprost [Lumigan] 1 drop OU HS #1 bottle 09/13/16 Rx Brimonidine 0.2% [Alphagan 0.2% 1 drop OU BID #1 bottle 09/13/16 Rx Opht] Cholecalciferol (Vitamin D3) 1,000 unit PO DAILY #30 tablet 09/13/16 Rx [Vitamin D3] Ferrous Sulfate 325 mg PO DAILY #30 tablet 09/13/16 Rx Insulin Detemir [Levemir] 8 units SC HS #1 vial 09/13/16 Rx Metoprolol Tartrate 25 mg PO DAILY #30 tablet 09/13/16 Rx Sodium Bicarbonate 650 mg PO DAILY #30 tablet 09/13/16 Rx amLODIPine [Norvasc] 10 mg PO DAILY #30 tab 09/13/16 Rx cloNIDine [Catapres] 0.1 mg PO TID #90 tab 09/13/16 Rx Allergies/Adverse Reactions: Allergies Allergy/AdvReac Type Severity Reaction Status Date / Time No Known Allergies Allergy Verified 09/13/16 07:44 - Medications Medications: Current Medications Artificial Tears (Lacri-Lube) 1 applic OU HS [facility] Last Admin: 09/13/16 21:48 Dose: 1 applic Ceftriaxone Sodium 1 gm/ (Sodium Chloride) 100 mls @ 100 mls/hr IVPB DAILY [facility] Last Admin: 09/14/16 08:46 Dose: 100 mls/hr Azithromycin 500 mg/ Sodium (Chloride) 250 mls @ 250 mls/hr IVPB DAILY [facility] Last Admin: 09/14/16 09:44 Dose: 250 mls/hr Potassium Chloride (Potassium Cl 10meq/50ml Sterile Water) 50 mls @ 50 mls/hr IVPB Q1 [facility] Stop: 09/14/16 10:59 Insulin Human Lispro (Humalog) 0 units SC Q6H [facility] PRN Reason: Protocol Last Admin: 09/14/16 10:01 Dose: 5 u Labetalol HCl (Trandate) 20 mg IVP Q6H PRN PRN Reason: For SBP > 140 Last Admin: 09/14/16 02:34 Dose: 20 mg Pantoprazole Sodium (Protonix Inj) 40 mg IVP DAILY [facility] Last Admin: 09/14/16 10:09 Dose: 40 mg Physical Exam - Additional Findings Additional findings: Unresponsive female, orally intubated and mechanically ventilated. Neck is supple and trachea midline. No visible neck vein distension. No dullness on percussion of the anterior chest wall. No palpable subcutaneous emphysema. Breath sounds are present bilaterally, diminshed posteriorly, with few scattered rhonchi. No audible wheezing. Few dry dependant rales posteriorly in the lower lobes. No bronchial breath sounds appreciated. No rub. Heart sounds are well heard with systolic murmur at the base. Abdomen appears soft with decreased bowel sounds. Trace dependant edema, no cyanosis. Results - Vital Signs Recent Vital Signs: Last Vital Signs Temp 91.8 F L 09/14/16 10:00 Pulse 60 09/14/16 10:00 Resp 18 09/14/16 09:30 BP 165/74 H 09/14/16 10:00 Pulse Ox 99 09/13/16 12:00 - Labs Result Diagrams: 09/16/16 04:20 09/17/16 05:05 Labs: Laboratory Results - last 24 hr 09/13/16 09/13/16 09/13/16 03:10 09:00 10:15 WBC 18.2 H RBC 3.80 Hgb 8.6 L Hct 29.9 L MCV 78.7 L D MCH 22.7 L MCHC 28.8 L RDW 17.9 H Plt Count 342 MPV Neut % (Auto) Lymph % (Auto) [place] % (Auto) Eos % (Auto) Baso % (Auto) Neut # Lymph # Norton # Eos # Baso # Neutrophils % (Manual) Band Neutrophils % Lymphocytes % (Manual) Monocytes % (Manual) Basophils % (Manual) Platelet Estimate Hypochromasia (manual) Anisocytosis (manual) Tear Drop Cells Ovalocytes Schistocytes APTT pCO2 57 H pO2 57 L HCO3 16.7 L ABG pH 7.13 L* ABG Total CO2 20.7 L ABG O2 Saturation 88.0 L ABG O2 Content 12.7 L ABG Base Excess -10.2 L ABG Hemoglobin 10.6 L ABG Carboxyhemoglobin 1.5 POC ABG HHb (Measured) 11.6 H ABG Methemoglobin 1.7 ABG O2 Capacity 14.4 L Darrell Test Yes A-a O2 Difference 585.0 Hgb O2 Saturation 85.2 L Vent Mode Pvc/ac Mechanical Rate 12 FiO2 100.0 Tidal Volume 500 PEEP 5 Pressure Support 0 Blood Gas Comments Vt 500 pr/ac 12 io2 100% peep 5 Crit Value Called To Dr brianna talley Crit Value Called By 162 Crit Value Read Back Y Blood Gas Notified Time 1026 Sodium 144 Potassium 5.3 H Chloride 112 H Carbon Dioxide 20 L Anion Gap 17 BUN 40 H Creatinine 2.7 H Est GFR ( Amer) 21 Est GFR (Non-Af Amer) 17 POC Glucose (mg/dL) Random Glucose 239 H Calcium 9.3 Phosphorus 7.6 H Magnesium 2.1 Total Bilirubin 0.5 AST 238 H D ALT 137 H D Alkaline Phosphatase 127 H D Total Creatine Kinase Troponin I Total Protein 6.4 Albumin 3.0 L Globulin 3.4 Albumin/Globulin Ratio 0.9 L Triglycerides Cholesterol LDL Cholesterol Direct HDL Cholesterol Urine Color Urine Clarity Urine pH Ur Specific [place] Urine Protein Urine Glucose (UA) Urine Ketones Urine Blood Urine Nitrate Urine Bilirubin Urine Urobilinogen Ur Leukocyte Esterase Urine RBC (Auto) Urine Microscopic WBC Ur Squamous Epith Cells Ur Random Creatinine U Random Total Protein Ur Random Sodium 09/13/16 09/13/16 09/13/16 11:30 12:33 13:20 WBC RBC Hgb Hct MCV MCH MCHC RDW Plt Count MPV Neut % (Auto) Lymph % (Auto) Norton % (Auto) Eos % (Auto) Baso % (Auto) Neut # Lymph # Norton # Eos # Baso # Neutrophils % (Manual) Band Neutrophils % Lymphocytes % (Manual) Monocytes % (Manual) Basophils % (Manual) Platelet Estimate Hypochromasia (manual) Anisocytosis (manual) Tear Drop Cells Ovalocytes Schistocytes APTT pCO2 pO2 HCO3 ABG pH ABG Total CO2 ABG O2 Saturation ABG O2 Content ABG Base Excess ABG Hemoglobin ABG Carboxyhemoglobin POC ABG HHb (Measured) ABG Methemoglobin ABG O2 Capacity Darrell Test A-a O2 Difference Hgb O2 Saturation Vent Mode Mechanical Rate FiO2 Tidal Volume PEEP Pressure Support Blood Gas Comments Crit Value Called To Crit Value Called By Crit Value Read Back Blood Gas Notified Time Sodium 143 Potassium 5.0 Chloride 112 H Carbon Dioxide 19 L Anion Gap 17 BUN 43 H Creatinine 2.8 H Est GFR ( Amer) 20 Est GFR (Non-Af Amer) 16 POC Glucose (mg/dL) 268 H Random Glucose 266 H Calcium 9.1 Phosphorus Magnesium Total Bilirubin 0.5 AST 218 H ALT 136 H Alkaline Phosphatase 120 Total Creatine Kinase Troponin I 8.3400 H* Total Protein 6.2 L Albumin 2.9 L Globulin 3.3 Albumin/Globulin Ratio 0.9 L Triglycerides Cholesterol LDL Cholesterol Direct HDL Cholesterol Urine Color Red Urine Clarity Cloudy Urine pH 6.0 Ur Specific [place] 1.008 Urine Protein >=500 Urine Glucose (UA) >=500 Urine Ketones Negative Urine Blood Large Urine Nitrate Negative Urine Bilirubin Negative Urine Urobilinogen 0.2-1.0 Ur Leukocyte Esterase Trace Urine RBC (Auto) 1448 H Urine Microscopic WBC 3 Ur Squamous Epith Cells 6 H Ur Random Creatinine U Random Total Protein Ur Random Sodium 09/13/16 09/13/16 09/13/16 14:48 15:17 15:25 WBC RBC Hgb Hct MCV MCH MCHC RDW Plt Count MPV Neut % (Auto) Lymph % (Auto) Norton % (Auto) Eos % (Auto) Baso % (Auto) Neut # Lymph # Norton # Eos # Baso # Neutrophils % (Manual) Band Neutrophils % Lymphocytes % (Manual) Monocytes % (Manual) Basophils % (Manual) Platelet Estimate Hypochromasia (manual) Anisocytosis (manual) Tear Drop Cells Ovalocytes Schistocytes APTT pCO2 pO2 HCO3 ABG pH ABG Total CO2 ABG O2 Saturation ABG O2 Content ABG Base Excess ABG Hemoglobin ABG Carboxyhemoglobin POC ABG HHb (Measured) ABG Methemoglobin ABG O2 Capacity Darrell Test A-a O2 Difference Hgb O2 Saturation Vent Mode Mechanical Rate FiO2 Tidal Volume PEEP Pressure Support Blood Gas Comments Crit Value Called To Crit Value Called By Crit Value Read Back Blood Gas Notified Time Sodium Potassium Chloride Carbon Dioxide Anion Gap BUN Creatinine Est GFR ( Amer) Est GFR (Non-Af Amer) POC Glucose (mg/dL) Random Glucose Calcium 8.6 Phosphorus Magnesium Total Bilirubin AST ALT Alkaline Phosphatase Total Creatine Kinase Troponin I 13.4000 H* Total Protein Albumin Globulin Albumin/Globulin Ratio Triglycerides Cholesterol LDL Cholesterol Direct HDL Cholesterol Urine Color Urine Clarity Urine pH Ur Specific [place] Urine Protein Urine Glucose (UA) Urine Ketones Urine Blood Urine Nitrate Urine Bilirubin Urine Urobilinogen Ur Leukocyte Esterase Urine RBC (Auto) Urine Microscopic WBC Ur Squamous Epith Cells Ur Random Creatinine 7.8 U Random Total Protein 84.0 H Ur Random Sodium 126 09/13/16 09/13/16 09/13/16 15:40 17:37 18:40 WBC RBC Hgb Hct MCV MCH MCHC RDW Plt Count MPV Neut % (Auto) Lymph % (Auto) Norton % (Auto) Eos % (Auto) Baso % (Auto) Neut # Lymph # [place] # Eos # Baso # Neutrophils % (Manual) Band Neutrophils % Lymphocytes % (Manual) Monocytes % (Manual) Basophils % (Manual) Platelet Estimate Hypochromasia (manual) Anisocytosis (manual) Tear Drop Cells Ovalocytes Schistocytes APTT pCO2 pO2 HCO3 ABG pH ABG Total CO2 ABG O2 Saturation ABG O2 Content ABG Base Excess ABG Hemoglobin ABG Carboxyhemoglobin POC ABG HHb (Measured) ABG Methemoglobin ABG O2 Capacity Darrell Test A-a O2 Difference Hgb O2 Saturation Vent Mode Mechanical Rate FiO2 Tidal Volume PEEP Pressure Support Blood Gas Comments Crit Value Called To Crit Value Called By Crit Value Read Back Blood Gas Notified Time Sodium Potassium Chloride Carbon Dioxide Anion Gap BUN Creatinine Est GFR ( Amer) Est GFR (Non-Af Amer) POC Glucose (mg/dL) 287 H Random Glucose Calcium Phosphorus Magnesium Total Bilirubin AST ALT Alkaline Phosphatase Total Creatine Kinase 453 H Troponin I 12.2000 H* Total Protein Albumin Globulin Albumin/Globulin Ratio Triglycerides Cholesterol LDL Cholesterol Direct HDL Cholesterol Urine Color Urine Clarity Urine pH Ur Specific [place] Urine Protein Urine Glucose (UA) Urine Ketones Urine Blood Urine Nitrate Urine Bilirubin Urine Urobilinogen Ur Leukocyte Esterase Urine RBC (Auto) Urine Microscopic WBC Ur Squamous Epith Cells Ur Random Creatinine U Random Total Protein Ur Random Sodium 09/13/16 09/13/16 09/14/16 20:58 23:40 03:05 WBC RBC Hgb Hct MCV MCH MCHC RDW Plt Count MPV Neut % (Auto) Lymph % (Auto) [place] % (Auto) Eos % (Auto) Baso % (Auto) Neut # Lymph # [place] # Eos # Baso # Neutrophils % (Manual) Band Neutrophils % Lymphocytes % (Manual) Monocytes % (Manual) Basophils % (Manual) Platelet Estimate Hypochromasia (manual) Anisocytosis (manual) Tear Drop Cells Ovalocytes Schistocytes APTT 29.2 pCO2 pO2 HCO3 ABG pH ABG Total CO2 ABG O2 Saturation ABG O2 Content ABG Base Excess ABG Hemoglobin ABG Carboxyhemoglobin POC ABG HHb (Measured) ABG Methemoglobin ABG O2 Capacity Darrell Test A-a O2 Difference Hgb O2 Saturation Vent Mode Mechanical Rate FiO2 Tidal Volume PEEP Pressure Support Blood Gas Comments Crit Value Called To Crit Value Called By Crit Value Read Back Blood Gas Notified Time Sodium Potassium Chloride Carbon Dioxide Anion Gap BUN Creatinine Est GFR ( Amer) Est GFR (Non-Af Amer) POC Glucose (mg/dL) 320 H 354 H Random Glucose Calcium Phosphorus Magnesium Total Bilirubin AST ALT Alkaline Phosphatase Total Creatine Kinase Troponin I Total Protein Albumin Globulin Albumin/Globulin Ratio Triglycerides Cholesterol LDL Cholesterol Direct HDL Cholesterol Urine Color Urine Clarity Urine pH Ur Specific [place] Urine Protein Urine Glucose (UA) Urine Ketones Urine Blood Urine Nitrate Urine Bilirubin Urine Urobilinogen Ur Leukocyte Esterase Urine RBC (Auto) Urine Microscopic WBC Ur Squamous Epith Cells Ur Random Creatinine U Random Total Protein Ur Random Sodium 09/14/16 09/14/1617 04:20 04:20 05:17 WBC 19.5 H RBC 4.47 Hgb 9.6 L Hct 32.1 L MCV 71.9 L D MCH 21.5 L MCHC 29.8 L RDW 17.5 H Plt Count 299 MPV 8.7 Neut % (Auto) 91.2 H Lymph % (Auto) 5.8 L [place] % (Auto) 2.9 Eos % (Auto) 0.0 Baso % (Auto) 0.1 Neut # 17.8 H Lymph # 1.1 Norton # 0.6 Eos # 0.0 Baso # 0.0 Neutrophils % (Manual) 87 H Band Neutrophils % 3 H Lymphocytes % (Manual) 7 L Monocytes % (Manual) 2 Basophils % (Manual) 1 Platelet Estimate Normal Hypochromasia (manual) Slight Anisocytosis (manual) Slight Tear Drop Cells Slight Ovalocytes Slight Schistocytes Slight APTT pCO2 32 L pO2 109 H HCO3 23.5 ABG pH 7.44 ABG Total CO2 22.7 ABG O2 Saturation 99.4 H ABG O2 Content 14.5 L ABG Base Excess -1.9 ABG Hemoglobin 10.5 L ABG Carboxyhemoglobin 1.1 POC ABG HHb (Measured) 0.6 ABG Methemoglobin 1.1 ABG O2 Capacity 14.6 L Darrell Test Yes A-a O2 Difference 564.0 Hgb O2 Saturation 97.1 Vent Mode Prvc/ac Mechanical Rate 18 FiO2 100.0 Tidal Volume 500 PEEP 8 Pressure Support Blood Gas Comments Crit Value Called To Crit Value Called By Crit Value Read Back Blood Gas Notified Time Sodium 144 Potassium 3.4 L Chloride 109 H Carbon Dioxide 22 Anion Gap 16 BUN 51 H Creatinine 3.6 H Est GFR ( Amer) 15 Est GFR (Non-Af Amer) 12 POC Glucose (mg/dL) Random Glucose 327 H Calcium 8.6 Phosphorus Magnesium Total Bilirubin 0.5 AST 168 H D ALT 102 H D Alkaline Phosphatase 103 Total Creatine Kinase Troponin I Total Protein 6.0 L Albumin 2.8 L Globulin 3.2 Albumin/Globulin Ratio 0.9 L Triglycerides 90 Cholesterol < 50 LDL Cholesterol Direct < 30 HDL Cholesterol 23 L Urine Color Urine Clarity Urine pH Ur Specific [place] Urine Protein Urine Glucose (UA) Urine Ketones Urine Blood Urine Nitrate Urine Bilirubin Urine Urobilinogen Ur Leukocyte Esterase Urine RBC (Auto) Urine Microscopic WBC Ur Squamous Epith Cells Ur Random Creatinine U Random Total Protein Ur Random Sodium 09/14/16 09/14/16 09:20 09:25 WBC RBC Hgb Hct MCV MCH MCHC RDW Plt Count MPV Neut % (Auto) Lymph % (Auto) [place] % (Auto) Eos % (Auto) Baso % (Auto) Neut # Lymph # [place] # Eos # Baso # Neutrophils % (Manual) Band Neutrophils % Lymphocytes % (Manual) Monocytes % (Manual) Basophils % (Manual) Platelet Estimate Hypochromasia (manual) Anisocytosis (manual) Tear Drop Cells Ovalocytes Schistocytes APTT pCO2 pO2 HCO3 ABG pH ABG Total CO2 ABG O2 Saturation ABG O2 Content ABG Base Excess ABG Hemoglobin ABG Carboxyhemoglobin POC ABG HHb (Measured) ABG Methemoglobin ABG O2 Capacity Darrell Test A-a O2 Difference Hgb O2 Saturation Vent Mode Mechanical Rate FiO2 Tidal Volume PEEP Pressure Support Blood Gas Comments Crit Value Called To Crit Value Called By Crit Value Read Back Blood Gas Notified Time Sodium 143 Potassium 3.3 L Chloride 109 H Carbon Dioxide 22 Anion Gap 15 BUN 53 H Creatinine 3.7 H Est GFR ( Amer) 14 Est GFR (Non-Af Amer) 12 POC Glucose (mg/dL) 362 H Random Glucose 343 H Calcium 8.6 Phosphorus Magnesium Total Bilirubin AST ALT Alkaline Phosphatase Total Creatine Kinase Troponin I Total Protein Albumin Globulin Albumin/Globulin Ratio Triglycerides Cholesterol LDL Cholesterol Direct HDL Cholesterol Urine Color Urine Clarity Urine pH Ur Specific [place] Urine Protein Urine Glucose (UA) Urine Ketones Urine Blood Urine Nitrate Urine Bilirubin Urine Urobilinogen Ur Leukocyte Esterase Urine RBC (Auto) Urine Microscopic WBC Ur Squamous Epith Cells Ur Random Creatinine U Random Total Protein Ur Random Sodium Assessment & Plan (1) Endotracheally intubated Status: Acute Comment: Cardiac arrest on presentation, intubated and mechanically ventilated to assure airways safety/patency and allow for mechanical ventilation. (2) On mechanically assisted ventilation Status: Acute Comment: Maintain SpO2 >95% at all times. Monitor ABG's and avoid alkalosis. (3) Pulmonary infiltrates on CXR Status: Acute Comment: Bilateral lower lobe haziness with shadowing of both hemidiaphragms. Likely represents pleural effusions with possible LLL pneumonia/atelectasis. May need CT chest when more stable clinically. Continue present antibiotic regimen. (4) Cardiac arrest Status: Acute (5) NSTEMI (non-ST elevated myocardial infarction) Status: Acute - Date & Time Date: 09/14/16 Time: 10:31
[2016-09-14] MEDS ORDERED: Enoxaparin 100 mg Syringe SC SCH (10:30)
--- NOTE | 2016-09-14 11:14 | CP.PCM.PN ---
<Karen Cruz - Last Filed: 09/14/16 12:54> Subjective - Date & Time of Evaluation Date of Evaluation: 09/14/16 Time of Evaluation: 07:20 - Subjective Subjective: Patient seen and examined at bedside with Dr. Mejia, physical exam remains unchanged compared to prior. Patient is intubated on mechanical ventilation, unresponsive, on Day 2 of IV antibiotics for CAP. Cardiology, Pulmonology and Nephrology on board, ICU youth associate management and input appreciated. Objective - Vital Signs/Intake and Output Vital Signs (last 24 hours): Temp Pulse Resp BP Pulse Ox 91.7 F L 60 18 149/55 L 99 09/14/16 11:00 09/14/16 11:00 09/14/16 11:00 09/14/16 11:00 09/13/16 12:00 Intake and Output: 09/14/16 09/14/16 06:59 18:59 Intake Total 660 430 Output Total 635 100 Balance 25 330 - Medications Medications: Current Medications Artificial Tears (Lacri-Lube) 1 applic OU HS [facility] Last Admin: 09/13/16 21:48 Dose: 1 applic Enoxaparin Sodium (Lovenox) 120 mg SC DAILY [facility] PRN Reason: Protocol Ceftriaxone Sodium 1 gm/ (Sodium Chloride) 100 mls @ 100 mls/hr IVPB DAILY [facility] Last Admin: 09/14/16 08:46 Dose: 100 mls/hr Azithromycin 500 mg/ Sodium (Chloride) 250 mls @ 250 mls/hr IVPB DAILY [facility] Last Admin: 09/14/16 09:44 Dose: 250 mls/hr Insulin Human Lispro (Humalog) 0 units SC Q6H [facility] PRN Reason: Protocol Last Admin: 09/14/16 10:01 Dose: 5 u Labetalol HCl (Trandate) 20 mg IVP Q6H PRN PRN Reason: For SBP > 140 Last Admin: 09/14/16 02:34 Dose: 20 mg Pantoprazole Sodium (Protonix Inj) 40 mg IVP DAILY [facility] Last Admin: 09/14/16 10:09 Dose: 40 mg - Labs Labs: 09/14/16 04:20 09/14/16 09:20 PT 12.7 Seconds (9.8-13.1) 09/13/16 03:10 INR 1.1 (0.9-1.2) 09/13/16 03:10 APTT 29.2 Seconds (25.6-37.1) 09/13/16 23:40 - Constitutional Appears: Chronically Ill, Other (unresponsive, intubated, obese) - Head Exam Head Exam: ATRAUMATIC, NORMOCEPHALIC - Eye Exam Additional comments: unreactive - Respiratory Exam Respiratory Exam: Rhonchi (diffuse) - Cardiovascular Exam Cardiovascular Exam: REGULAR RHYTHM, +S1, +S2 - GI/Abdominal Exam GI & Abdominal Exam: Soft, Normal Bowel Sounds - Exam Additional comments: yepez catheter in place draining clear yellow urine - Extremities Exam Additional comments: bilateral pedal hyperpigmentation - Neurological Exam Neurological Exam: absent: Awake (unresponsive, sedated on Propofol drip) - Skin Skin Exam: Dry, Intact Assessment and Plan - Assessment and Plan (Free Text) Assessment: 76 yr old F admitted for Cardiac arrest of unknown etiology, intubated on mechanical ventilation, admitted to ICU on IV antibiotics for CAP. Patient has PMhx including CAD, PAD s/p stent in RLE, IDDM Type 2, CKD stage IV (not on dialysis-discussed but pt refused), 3 recent TIA's, severe aortic stenosis. Cardiology Nephrology, ID and Neurology on board. Cardiac Arrest -acute, unknown etiology, likely secondary to respiratory failure vs NSTEMI , BP maintained off pressors -metabolic acidosis resolved -discontinue therapeutic hypothermia -intubated: vent PVC/AC 18/ TV 500 : PEEP 8, FiO2 80 (adjusted by pulm) -discontinue Propofol -Protonix 40mg IVP QD, Lacri-lube 1 applic OU HS -NaHCO3 150 Meq in D5 at 60mls/hr -troponin 0.07> 8.34>13.4>12.2 -Cardiology on consult- Dr. Sanford: will follow recommendations, Lovenox 120mg SC QD -Neurology on consult- Dr. Verde: repeat CT head, obtain EEG, observe pt off propofol Community Acquired Pneumonia -acute, leukocytosis 18.2>22.8>19.5 -repeat CXR: diffuse bilateral intersitial infiltrates -Ceftriaxone 1 gm IV QD, Azithromycin 500mg IV QD (Day 2) -Pulmonology consult appreciated: Dr. Simmons, will follow recommendations Acute on Chronic Chronic Kidney Disease Stage IV -worsening acute on chronic, secondary to cardiac arrest -Nephrology on consult: Dr. Beasley; will consider Dialysis -hold home meds (Vitamin D 1,000 IU PO QD, , NaHCO3 650mg PO QID) -f/u BUN/Cr IDDM Type 2 -uncontrolled, chronic HbA1c 9.3 -Insulin Lispro SC Q6H -low dose protocol -hold home meds (Insulin Levemir Flextouch Pen 8 units SC HS, Atorvastatin 40mg PO QD) -lipid panel wnl CAD (severe aortic stenosis /PAD s/p LE stent/ 3 recent TIA's -stable, chronic -hold home med (Plavix 75mg PO QD) -Cardiology on consult- Dr. Sanford: will follow recommendations -Lovenox 120 mg SC QD Anemia of Chronic Disease -stable, chronic -hold home med (Ferrous Sulfate 325mg PO QD) -monitor CBC HTN -controlled, chronic -hold home meds for now (Clonidine 0.1 mg PO TID, Metoprolol Tartrate 25mg PO, Amlodipine 10mg PO QD) -monitor BP DVT prophylaxis -Lovenox 120 mg SC QD :pt anticoagulated for possible NSTEMI/hx CAD and severe aortic stenosis <Wallace Mejia - Last Filed: 09/16/16 07:02> Objective - Vital Signs/Intake and Output Vital Signs (last 24 hours): Temp Pulse Resp BP Pulse Ox 101.4 F H 89 21 150/72 100 09/16/16 04:00 09/16/16 06:00 09/16/16 06:00 09/16/16 06:00 09/16/16 06:00 Intake and Output: 09/16/16 09/16/16 06:59 18:59 Intake Total 667 Output Total 425 Balance 242 - Medications Medications: Current Medications Artificial Tears (Lacri-Lube) 1 applic OU HS [facility] Last Admin: 09/15/16 21:47 Dose: 1 applic Enoxaparin Sodium (Lovenox) 120 mg SC DAILY [facility] PRN Reason: Protocol Last Admin: 09/15/16 08:26 Dose: 120 mg Ceftriaxone Sodium 1 gm/ (Sodium Chloride) 100 mls @ 100 mls/hr IVPB DAILY [facility] Last Admin: 09/15/16 08:27 Dose: 100 mls/hr Azithromycin 500 mg/ Sodium (Chloride) 250 mls @ 250 mls/hr IVPB DAILY [facility] Last Admin: 09/15/16 09:51 Dose: 250 mls/hr Potassium Chloride 20 meq/ (Sodium Chloride) 1,010 mls @ 50 mls/hr IV .[id number] [facility] Stop: 09/16/16 21:34 Last Admin: 09/15/16 22:30 Dose: 50 mls/hr Insulin Human Lispro (Humalog) 0 units SC Q6H [facility] PRN Reason: Protocol Last Admin: 09/16/16 03:15 Dose: Not Given Metoprolol Tartrate (Lopressor) 5 mg IVP Q6 PRN PRN Reason: Systolic Blood Pressure Last Admin: 09/15/16 17:45 Dose: 5 mg Pantoprazole Sodium (Protonix Inj) 40 mg IVP DAILY [facility] Last Admin: 09/15/16 08:22 Dose: 40 mg - Labs Labs: 09/16/16 04:20 09/16/16 04:20 PT 12.7 Seconds (9.8-13.1) 09/13/16 03:10 INR 1.1 (0.9-1.2) 09/13/16 03:10 APTT 29.2 Seconds (25.6-37.1) 09/13/16 23:40 Attending/Attestation - Attestation I have personally seen and examined this patient.: Yes I have fully participated in the care of the patient.: Yes I have reviewed all pertinent clinical information, including history, physical exam and plan: Yes
[2016-09-14] MEDS: Potassium CL 10 MEQ/50 ML 50 ML IVPB SCH ×2 (11:24→13:04)
[2016-09-14 11:35] LABS: ABG ALLEN TEST YES; ARTERIAL BLOOD GAS HCO3 23.5 mmol/L (21-28); ARTERIAL BLOOD GAS O2 CAPACITY 13.9 mL/dL (16-24); ARTERIAL BLOOD GAS O2 CONTENT 13.8 ML/dL (15-23); ARTERIAL BLOOD GAS O2 SAT 99.4 % (95-98); ARTERIAL BLOOD GAS PCO2 31 mm/Hg (35-45); ARTERIAL BLOOD GAS PH 7.45 (7.35-7.45); ARTERIAL BLOOD GAS PO2 101 mm/Hg (80-100); ARTERIAL BLOOD GAS TCO2 22.5 mmol/L (22-28)
--- NOTE | 2016-09-14 11:46 | RAD ---
PROCEDURE: CHEST RADIOGRAPH, 1 VIEW HISTORY: pt intubated COMPARISON: 09/13/2016 FINDINGS: LUNGS: Persistent opacity at both lung bases, right greater than left. Comparison to prior examination limited due to technical limitation of previous examination. PLEURA: Probable small bilateral pleural effusion. No pneumothorax. CARDIOVASCULAR: Endotracheal tube and nasogastric tube are unchanged. OSSEOUS STRUCTURES: No significant abnormalities. VISUALIZED UPPER ABDOMEN: Normal. OTHER FINDINGS: None. IMPRESSION: Bibasilar opacity and small bilateral pleural effusion. Lines and tubes unchanged.
[2016-09-14 11:49] LABS: MAGNESIUM 1.9 MG/DL (1.6-2.3)
[2016-09-14] MEDS: Enoxaparin 120 mg Syringe SC SCH (12:09)
[2016-09-14] MEDS ORDERED: Potassium Ch 20mEq in D5-1/2NS 1,000 ML IV SCH (15:45)
[2016-09-14] MEDS ORDERED: Potassium Chloride 20 MEQ in Sodium Chloride 0.45% 1,000 ML IV SCH (16:15)
--- NOTE | 2016-09-14 18:58 | CP.PCM.PN ---
Subjective - Date & Time of Evaluation Date of Evaluation: 09/14/16 Time of Evaluation: 18:50 - Subjective Subjective: patient remains intubated. Objective - Vital Signs/Intake and Output Vital Signs (last 24 hours): Temp Pulse Resp BP Pulse Ox 96 F L 70 18 151/47 H 99 09/14/16 18:30 09/14/16 18:30 09/14/16 18:30 09/14/16 18:30 09/13/16 12:00 Intake and Output: 09/14/16 09/14/16 06:59 18:59 Intake Total 660 1140 Output Total 635 510 Balance 25 630 - Medications Medications: Current Medications Artificial Tears (Lacri-Lube) 1 applic OU HS [facility] Last Admin: 09/13/16 21:48 Dose: 1 applic Enoxaparin Sodium (Lovenox) 120 mg SC DAILY [facility] PRN Reason: Protocol Last Admin: 09/14/16 12:09 Dose: 120 mg Ceftriaxone Sodium 1 gm/ (Sodium Chloride) 100 mls @ 100 mls/hr IVPB DAILY [facility] Last Admin: 09/14/16 08:46 Dose: 100 mls/hr Azithromycin 500 mg/ Sodium (Chloride) 250 mls @ 250 mls/hr IVPB DAILY [facility] Last Admin: 09/14/16 09:44 Dose: 250 mls/hr Potassium Chloride 20 meq/ (Sodium Chloride) 1,010 mls @ 50 mls/hr IV .[id number] [facility] Stop: 09/15/16 16:02 Last Admin: 09/14/16 18:42 Dose: 50 mls/hr Insulin Human Lispro (Humalog) 0 units SC Q6H [facility] PRN Reason: Protocol Last Admin: 09/14/16 15:33 Dose: 4 u Labetalol HCl (Trandate) 20 mg IVP Q6H PRN PRN Reason: For SBP > 140 Last Admin: 09/14/16 16:05 Dose: 20 mg Pantoprazole Sodium (Protonix Inj) 40 mg IVP DAILY [facility] Last Admin: 09/14/16 10:09 Dose: 40 mg - Labs Labs: 09/14/16 04:20 09/14/16 09:20 PT 12.7 Seconds (9.8-13.1) 09/13/16 03:10 INR 1.1 (0.9-1.2) 09/13/16 03:10 APTT 29.2 Seconds (25.6-37.1) 09/13/16 23:40 - Constitutional Appears: Non-toxic - Head Exam Head Exam: NORMAL INSPECTION - Eye Exam Eye Exam: Normal appearance - ENT Exam ENT Exam: Mucous Membranes Moist - Neck Exam Neck Exam: Full ROM - Respiratory Exam Respiratory Exam: Decreased Breath Sounds - Cardiovascular Exam Cardiovascular Exam: REGULAR RHYTHM, Murmur - GI/Abdominal Exam GI & Abdominal Exam: Normal Bowel Sounds - Rectal Exam Rectal Exam: Deferred - Extremities Exam Extremities Exam: Pedal Edema - Neurological Exam Neurological Exam: Alert - Psychiatric Exam Psychiatric exam: Normal Affect - Skin Skin Exam: Normal Color Assessment and Plan (1) NSTEMI (non-ST elevated myocardial infarction) Assessment & Plan: patient is currntly on lovenox. will continue Status: Acute (2) Severe aortic stenosis Assessment & Plan: medical therapy and supportive care Status: Acute (3) Cardiac arrest Assessment & Plan: off hypothermia protocol Status: Acute
[2016-09-14] MEDS: Mineral Oil/White Petrolatum Ophth Oint OU SCH (21:16)
[2016-09-15] MEDS: Insulin Lispro (humaLOG) 100 Units/ml Inj SC SCH ×4 (03:24→21:47)
[2016-09-15 05:35] LABS: ALBUMIN 2.8 g/dL (3.5-5.0)
[2016-09-15 05:38] LABS: ALB/GLOB RATIO 0.8 (1.0-2.1); CALCIUM 8.6 mg/dL (8.4-10.2)
[2016-09-15 05:49] LABS: HEMOGLOBIN 9.2 g/dL (12.0-16.0); MEAN CELL VOLUME 70.8 fl (81.0-99.0); MEAN CORPUSCULAR HEMOGLOBIN 21.7 pg (27.0-31.0); MEAN CORPUSCULAR HGB CONC 30.6 g/dL (33.0-37.0); RBC 4.24 Mil/uL (3.80-5.20); RED CELL DISTRIBUTION WIDTH 16.9 % (11.5-14.5); WHITE BLOOD COUNT 20.6 K/uL (4.8-10.8)
[2016-09-15 06:01] LABS: ABG ALLEN TEST YES; ARTERIAL BLOOD GAS HCO3 23.9 mmol/L (21-28); ARTERIAL BLOOD GAS HEMOGLOBIN 9.7 g/dL (11.7-17.4); ARTERIAL BLOOD GAS O2 SAT 100.1 % (95-98); ARTERIAL BLOOD GAS PCO2 32 mm/Hg (35-45); ARTERIAL BLOOD GAS PH 7.45 (7.35-7.45); ARTERIAL BLOOD GAS PO2 284 mm/Hg (80-100); ARTERIAL BLOOD GAS TCO2 23.2 mmol/L (22-28)
[2016-09-15] MEDS: Labetalol 5 mg/ml Inj 20ML IVP PRN (06:15)
--- NOTE | 2016-09-15 06:45 | CON ---
DATE: 09/14/2016 NEUROLOGICAL CONSULTATION REASON FOR CONSULTATION: Status post cardiopulmonary arrest and unresponsiveness. CHIEF COMPLAINT: Patient was brought in by EMS with history of cardiopulmonary arrest at home with cardiopulmonary resuscitation and medication was given and intubated. From a neurological point of view, I was called in to evaluate her for further management. HISTORY OF PRESENT ILLNESS: Ms. Kristi Nava is a 76-year-old right-handed -[place] female, who woke up on Wednesday morning around 1:30 a.m. went to the bathroom. At the toilet, she was calling her son for help because she could not able to breathe on her own. Her son immediately rushed to help her to move her to the room to get the air conditioning on. At that time, she was helped by him. Her eyes were rolled back and she went to sleep. 911 was called, EMS arrived, and then the patient was given medication and patient was resuscitated for about few minutes, and she was intubated at the scene. After coming to the hospital, one more episode of cardiopulmonary arrest happened and she was retrieved with medication. The duration of unresponsiveness during the treatment was not fully defined yet as per the documentation. During the whole episode and from the history, patient was not found to have any tonic-clonic activities, bowel and bladder incontinence, or fallen and hit her head. PAST MEDICAL HISTORY: Patient carries a significant medical history of coronary artery disease status post stent placement, aortic stenosis, contrast-induced chronic renal failure, peripheral artery disease, and she did have few strokes in the past. ALLERGIES: NO KNOWN ALLERGIES. MEDICATIONS: Azithromycin, ceftriaxone, insulin, Lovenox, labetalol, pantoprazole, and potassium supplements. PHYSICAL EXAMINATION: VITAL SIGNS: Blood pressure 159/71, mean arterial pressure of 100, respiratory rate is 16, temperature afebrile. Patient had hypothermia protocol and she was rewarmed today. She is not on sedation. GENERAL: Patient is examined in the presence of her family members. She is deeply comatosed, not respond to verbal as well as to noxious stimuli. Eyes are closed. HEENT: Pupils nonreactive to light. No oculocephalic movements noted. No corneal reflex. On manipulating ET tube, no gag noted. The patient does not show any assisted breathing intermittently during the ventilation. Both upper and lower arms are flaccid, areflexic, plantars are mute. CONCLUSION: Upon review of her history and neurological examination, Ms. Kristi Nava has been presenting with global cerebral as well as brainstem dysfunction. These all related to hypoxic insult that she did undergone. This is more than 36 hours. Patient does not show any physiological response as per my examination. The overall prognosis for this patient is very poor. Patient attained irreversible REGIONAL DIRECTOR insult. Considering her confounding risk factors and other failure of organs, patient could not have any reasonable life near future from the REGIONAL DIRECTOR insult. Her electroencephalogram being reviewed by me showed throughout no physiological activities noted. However, these unresponsive activities intermittently contaminated with some electrical artifact which may obscure brain activities. With limited exam, I could not able to call brain or cerebral silence at present. RECOMMENDATION: Continue the present management, mean arterial pressure around 100. Antibiotic can be continued. I extensively discussed about DNR status. Family members agreed to sign the DNR status today. Patient should have CT of the head for followup tomorrow to assess the REGIONAL DIRECTOR insult. Patient can have carotid Doppler and transcranial Doppler to assess the cerebral blood flow. Extensive discussion with the family members, time spent from the time of examining, which is close to 40 minutes. Bahman Verde MD MTDD
--- NOTE | 2016-09-15 07:59 | PQF GENQUE ---
Dr. Mejia, 2(two) queries: (1) Etiology of Respiratory Failure?: if known after work up completed: i.e. Respiratory Failure due to Sepsis ;if in agreement with the diagnosis of Sepsis (2) Type and Acuity of Respiratory Failure? OR: Unable to determine Resident working with Attending current progress note: admitted for Cardiac arrest intubated on mechanical ventilation, admitted to ICU on IV antibiotics for CAP; Cardiac Arrest acute, unknown etiology, likely secondary to respiratory failure vs NSTEMI , BP maintained off pressors -metabolic acidosis resolved Renal consult :Impression:S/P cardiac arrest ,Respiratory failure ,B/L pnemonia , sepsis Stage 1V kidney disease Elevated troponin ,S/P resuscitation Pulmonary consult:Impression:(1) Endotracheally intubated Status: Acute Comment: Cardiac arrest on presentation, intubated and mechanically ventilated to assure airways safety/patency and allow for mechanical ventilation. (2) On mechanically assisted ventilation Status: Acute Comment: Maintain SpO2 >95% at all times. Monitor ABG's and avoid alkalosis. (3) Pulmonary infiltrates on CXR Status: Acute Comment: Bilateral lower lobe haziness with shadowing of both hemidiaphragms. Likely represents pleural eeffusions with possible LLL pneumonia/atelectasis. May need CT chest when more stable clinically. Continue present antibiotic regimen. (4) Cardiac arrest Status: Acute (5) NSTEMI (non- ST elevated myocardial infarction) Status: Acute This form is a permanent part of the medical record Clarification of your documentation is requested to better reflect the severity of illness and intensity of treatment of your patient. Indicators present [] Specify: [] [] Specify: [] [] Specify: [] [] Specify: [] Location in the medical record that reflects the above clinical findings: [] Treatment Provided: [] PHYSICIAN'S RESPONSE Based on your medical judgment of the clinical indicators outlined above please clarify the following: [] Practitioner response [] If unable to determine, please check the box, sign and date. Present On Admission (POA) Indicator: [] Present at the time of admission [] Not present at the time of admission [] Clinically Undetermined In responding to this query, please exercise your independent professional judgment. The fact that a question is asked does not imply that any particular answer is desired or expected. Thank you for your clarification on this documentation. If you have any questions please call. * Thank you, Lori Banks RN BSN ext. #[phone] MTDD
[2016-09-15] MEDS: Enoxaparin 120 mg Syringe SC SCH (08:26)
[2016-09-15] MEDS: Azithromycin 500 MG in Sodium Chloride 0.9% 250 ML IVPB SCH (09:51)
--- NOTE | 2016-09-15 10:01 | CP.PCM.PN ---
Subjective - Date & Time of Evaluation Date of Evaluation: 09/15/16 Time of Evaluation: 09:59 - Subjective Subjective: Seen on morning rounds in the intensive care unit. Interim entries in the EMR were reviewed. Today's CXR reviewed; persistent retrocardiac density with shadowing of left hemidiaphragm. Continued leukocytosis 20.6, microcytic anemia. Further declining renal function. Remains orally intubated and mechanically ventilated. ABG shows hyperoxygenation with normal pH and mild hypocarbia. Neurologically she is apparently unchanged/unresponsive. No spontaneous ventilation, but high SpO2 may suppress ventilatory drive. Eyes are open, pupils are nonreactive. Trachea appears midline. No dullness on percussion of the chest anteriorly. No subcutaneous emphysema on palpation. Breath sounds are present bilaterally with coarse sonorous rhonchi. No audible wheezes or bronchial breath sounds. Only few dependant rales are heard in LL's posteriorly. Patient to have CT brain this morning; will ask for CT chest at the same time. Reduced FiO2 to .60 and PEEP to 6cm. Still no sputum when suctioned, will request lavage. Continue antibiotics empirically. Objective - Vital Signs/Intake and Output Vital Signs (last 24 hours): Temp Pulse Resp BP Pulse Ox 97.1 F L 75 18 152/60 H 99 09/15/16 09:00 09/15/16 09:00 09/15/16 09:00 09/15/16 09:00 09/13/16 12:00 Intake and Output: 09/14/16 09/15/16 23:59 11:59 Intake Total 1110 1260 Output Total 460 49 Balance 650 1211 - Medications Medications: Current Medications Artificial Tears (Lacri-Lube) 1 applic OU HS [facility] Last Admin: 09/14/16 21:16 Dose: 1 applic Enoxaparin Sodium (Lovenox) 120 mg SC DAILY [facility] PRN Reason: Protocol Last Admin: 09/15/16 08:26 Dose: 120 mg Ceftriaxone Sodium 1 gm/ (Sodium Chloride) 100 mls @ 100 mls/hr IVPB [facility]ILY [facility] Last Admin: 09/15/16 08:27 Dose: 100 mls/hr Azithromycin 500 mg/ Sodium (Chloride) 250 mls @ 250 mls/hr IVPB [facility]ILY [facility] Last Admin: 09/15/16 09:51 Dose: 250 mls/hr Potassium Chloride 20 meq/ (Sodium Chloride) 1,010 mls @ 50 mls/hr IV .[id number] [facility] Stop: 09/15/16 16:02 Last Admin: 09/14/16 18:42 Dose: 50 mls/hr Insulin Human Lispro (Humalog) 0 units SC Q6H [facility] PRN Reason: Protocol Last Admin: 09/15/16 08:24 Dose: 3 u Labetalol HCl (Trandate) 20 mg IVP Q6H PRN PRN Reason: For SBP > 140 Last Admin: 09/15/16 06:15 Dose: 20 mg Pantoprazole Sodium (Protonix Inj) 40 mg IVP DAILY [facility] Last Admin: 09/15/16 08:22 Dose: 40 mg - Labs Labs: 09/15/16 04:20 09/15/16 04:20 PT 12.7 Seconds (9.8-13.1) 09/13/16 03:10 INR 1.1 (0.9-1.2) 09/13/16 03:10 APTT 29.2 Seconds (25.6-37.1) 09/13/16 23:40 Assessment and Plan (1) Endotracheally intubated Status: Acute (2) On mechanically assisted ventilation Status: Acute (3) Pulmonary infiltrates on CXR Status: Acute (4) Cardiac arrest Status: Acute (5) NSTEMI (non-ST elevated myocardial infarction) Status: Acute
--- NOTE | 2016-09-15 10:41 | CP.CCUPN ---
CCU Subjective - Physician Review Events Since Last Encounter (Free Text): 09/15/16 10:41 The patient was Seen/interviewed and examined by me at the bedside during ICU round, Medical records reviewed and Management issues were discussed and formulated with the house staff. 75 Years old Female was admitted to ICU 7 AM after she was brought to ER after cardiac arrest at home. It was witnessed by family members, who saw pt unable to breathe while in bath room and then collapsed. EMT arrived and intubated her and she was given epi and calcium. In ER she was unresponsive and CT head was negative. Underwent Therapeutic hypothermia protocol. Remains unresponsive to all stimuli, No neurological improvement Left pupil nonreactive. Right pupil sluggish. GCS of 5 Afebrile, minimal respiratory secretions ETT (#7.5) at 24cm to right lipline. Vent setting as follows: PRVC/AC 18, TV 500 , PEEP 8, FiO2 80%. FIO2 decreased to 60%, O2 sat 95%. CCU Objective - Vital Signs / Intake & Output Vital Signs (Last 4 hours): Vital Signs Temp Pulse Resp BP 09/15/16 10:00 97.1 F L 76 18 154/70 H 09/15/16 09:00 97.1 F L 75 18 152/60 H 09/15/16 08:00 96.9 F L 72 18 154/58 H 09/15/16 07:00 96.8 F L 66 18 146/55 L Intake and Output (Last 8hrs): Intake & Output 09/14/16 09/15/16 09/15/16 22:59 06:59 14:59 Intake Total 910 800 560 Output Total 245 64 0 Balance 665 736 560 Intake: IV 900 800 100 Intake, Piggyback 10 460 Output: Gastric Amount 50 30 Stomach 50 30 Urine 195 34 0 Urethral (Santoyo) 195 34 0 Other: # Bowel Movements 0 - Physical Exam Pupils: Positive for: Other (Left pupil nonreactive. Right pupil sluggish) Conjunctiva: Positive for: Normal. Negative for: Injected, Icteric Neck: Positive for: Trachea Midline. Negative for: JVD, Lymphadenopathy Respiratory/Chest: Positive for: Clear to Auscultation, Good Air Exchange. Negative for: Respiratory Distress, Accessory Muscle Use Cardiovascular: Positive for: Regular Rate and Rhythm, Normal S1, S2, Peripheal Pulses Present. Negative for: Murmurs Neurological: Positive for: Other (Patient unresponsive to verbal and deep pain stimuli. ) - Medications Active Medications: Active Medications Generic Name Dose Route Start Last Admin Trade Name Freq PRN Reason Stop Dose Admin Artificial Tears 1 applic 09/13/16 22:00 09/14/16 21:16 Lacri-Lube OU 1 applic HS MARY GRACE Administration Enoxaparin Sodium 120 mg 09/14/16 10:30 09/15/16 08:26 Lovenox SC 120 mg DAILY MARY GRACE Administration Protocol Ceftriaxone Sodium 1 gm/ 100 mls @ 100 mls/hr 09/13/16 11:30 09/15/16 08:27 Sodium Chloride IVPB 100 mls/hr DAILY MARY GRACE Administration Azithromycin 500 mg/ Sodium 250 mls @ 250 mls/hr 09/13/16 11:30 09/15/16 09: 51 Chloride IVPB 250 mls/hr DAILY MARY GRACE Administration Potassium Chloride 20 meq/ 1,010 mls @ 50 mls/hr 09/14/16 16:15 09/14/16 18: 42 Sodium Chloride IV 09/15/16 16:02 50 mls/hr .[id number] MARY GRACE Administration Insulin Human Lispro 0 units 09/13/16 03:15 09/15/16 08:24 Humalog SC 3 u Q6H MARY GRACE Administration Protocol Labetalol HCl 20 mg 09/13/16 22:03 09/15/16 06:15 Trandate IVP 20 mg Q6H PRN Administration For SBP > 140 Pantoprazole Sodium 40 mg 09/13/16 09:00 09/15/16 08:22 Protonix Inj IVP 40 mg DAILY MARY GRACE Administration - Patient Studies Lab Studies: Microbiology Studies 09/13/16 07:27 Blood Culture - Preliminary Blood NO GROWTH AFTER 24 HOURS 09/13/16 07:27 Blood Culture - Preliminary Blood NO GROWTH AFTER 24 HOURS 09/13/16 13:20 MRSA Culture (Admit) - Final Naris MRSA NOT DETECTED 09/13/16 12:30 Blood Culture - Preliminary Blood NO GROWTH AFTER 24 HOURS 09/13/16 13:20 Urine Culture - Preliminary Urine,Santoyo No growth. Lab Studies 09/15/16 09/15/16 09/15/16 Range/Units 08:06 05:58 04:20 WBC (4.8-10.8) K/uL RBC (3.80-5.20) Mil/uL Hgb (12.0-16.0) g/dL Hct (34.0-47.0) % MCV (81.0-99.0) fl MCH (27.0-31.0) pg MCHC (33.0-37.0) g/dL RDW (11.5-14.5) % Plt Count (130-400) K/uL pCO2 32 L (35-45) mm/Hg pO2 284 H (80-100) mm/Hg HCO3 23.9 (21-28) mmol/L ABG pH 7.45 (7.35-7.45) ABG Total CO2 23.2 (22-28) mmol/L ABG O2 Saturation 100.1 H (95-98) % ABG O2 Content 14.0 L (15-23) ML/dL ABG Base Excess -1.3 (-2.0-3.0) mmol/L ABG Hemoglobin 9.7 L (11.7-17.4) g/dL ABG Carboxyhemoglobin 1.0 (0.5-1.5) % POC ABG HHb (Measured) -0.1 L (0.0-5.0) % ABG Methemoglobin 1.8 (0.0-3.0) % ABG O2 Capacity 14.0 L (16-24) mL/dL Darrell Test Yes A-a O2 Difference 246.0 mm/Hg Hgb O2 Saturation 97.3 (95.0-98.0) % Vent Mode A/c Mechanical Rate 18 FiO2 80.0 % Tidal Volume 500 PEEP 8 Sodium 142 (132-148) mmol/l Potassium 3.7 (3.6-5.0) MMOL/L Chloride 106 (98-107) mmol/L Carbon Dioxide 26 (22-30) mmol/L Anion Gap 14 (10-20) BUN 60 H (7-17) mg/dl Creatinine 4.9 H (0.7-1.2) mg/dL Est GFR ( Amer) 10 Est GFR (Non-Af Amer) 9 POC Glucose (mg/dL) 252 H (65-110) mg/dL Random Glucose 243 H (65-105) mg/dL Hemoglobin A1c (4.2-6.5) % Calcium 8.6 (8.4-10.2) mg/dL Magnesium (1.6-2.3) MG/DL Total Bilirubin 0.4 (0.2-1.3) mg/dl AST 171 H (14-36) U/L ALT 71 H D (9-52) U/L Alkaline Phosphatase 97 (38-126) U/L Total Protein 6.4 (6.3-8.2) G/DL Albumin 2.8 L (3.5-5.0) g/dL Globulin 3.5 (2.2-3.9) gm/dL Albumin/Globulin Ratio 0.8 L (1.0-2.1) 09/15/16 09/15/16 09/14/16 Range/Units 04:20 03:21 20:52 WBC 20.6 H (4.8-10.8) K/uL RBC 4.24 (3.80-5.20) Mil/uL Hgb 9.2 L (12.0-16.0) g/dL Hct 30.0 L (34.0-47.0) % MCV 70.8 L (81.0-99.0) fl MCH 21.7 L (27.0-31.0) pg MCHC 30.6 L (33.0-37.0) g/dL RDW 16.9 H (11.5-14.5) % Plt Count 283 (130-400) K/uL pCO2 (35-45) mm/Hg pO2 (80-100) mm/Hg HCO3 (21-28) mmol/L ABG pH (7.35-7.45) ABG Total CO2 (22-28) mmol/L ABG O2 Saturation (95-98) % ABG O2 Content (15-23) ML/dL ABG Base Excess (-2.0-3.0) mmol/L ABG Hemoglobin (11.7-17.4) g/dL ABG Carboxyhemoglobin (0.5-1.5) % POC ABG HHb (Measured) (0.0-5.0) % ABG Methemoglobin (0.0-3.0) % ABG O2 Capacity (16-24) mL/dL Darrell Test A-a O2 Difference mm/Hg Hgb O2 Saturation (95.0-98.0) % Vent Mode Mechanical Rate FiO2 % Tidal Volume PEEP Sodium (132-148) mmol/l Potassium (3.6-5.0) MMOL/L Chloride (98-107) mmol/L Carbon Dioxide (22-30) mmol/L Anion Gap (10-20) BUN (7-17) mg/dl Creatinine (0.7-1.2) mg/dL Est GFR ( Amer) Est GFR (Non-Af Amer) POC Glucose (mg/dL) 258 H 324 H (65-110) mg/dL Random Glucose (65-105) mg/dL Hemoglobin A1c (4.2-6.5) % Calcium (8.4-10.2) mg/dL Magnesium (1.6-2.3) MG/DL Total Bilirubin (0.2-1.3) mg/dl AST (14-36) U/L ALT (9-52) U/L Alkaline Phosphatase (38-126) U/L Total Protein (6.3-8.2) G/DL Albumin (3.5-5.0) g/dL Globulin (2.2-3.9) gm/dL Albumin/Globulin Ratio (1.0-2.1) 09/14/16 09/14/16 09/14/16 Range/Units 18:01 14:47 11:25 WBC (4.8-10.8) K/uL RBC (3.80-5.20) Mil/uL Hgb (12.0-16.0) g/dL Hct (34.0-47.0) % MCV (81.0-99.0) fl MCH (27.0-31.0) pg MCHC (33.0-37.0) g/dL RDW (11.5-14.5) % Plt Count (130-400) K/uL pCO2 31 L (35-45) mm/Hg pO2 101 H (80-100) mm/Hg HCO3 23.5 (21-28) mmol/L ABG pH 7.45 (7.35-7.45) ABG Total CO2 22.5 (22-28) mmol/L ABG O2 Saturation 99.4 H (95-98) % ABG O2 Content 13.8 L (15-23) ML/dL ABG Base Excess -1.9 (-2.0-3.0) mmol/L ABG Hemoglobin 10.0 L (11.7-17.4) g/dL ABG Carboxyhemoglobin 1.1 (0.5-1.5) % POC ABG HHb (Measured) 0.6 (0.0-5.0) % ABG Methemoglobin 1.2 (0.0-3.0) % ABG O2 Capacity 13.9 L (16-24) mL/dL Darrell Test Yes A-a O2 Difference 431.0 mm/Hg Hgb O2 Saturation 97.1 (95.0-98.0) % Vent Mode A/c Mechanical Rate 18 FiO2 80.0 % Tidal Volume 500 PEEP 8 Sodium (132-148) mmol/l Potassium (3.6-5.0) MMOL/L Chloride (98-107) mmol/L Carbon Dioxide (22-30) mmol/L Anion Gap (10-20) BUN (7-17) mg/dl Creatinine (0.7-1.2) mg/dL Est GFR ( Amer) Est GFR (Non-Af Amer) POC Glucose (mg/dL) 304 H 338 H (65-110) mg/dL Random Glucose (65-105) mg/dL Hemoglobin A1c (4.2-6.5) % Calcium (8.4-10.2) mg/dL Magnesium (1.6-2.3) MG/DL Total Bilirubin (0.2-1.3) mg/dl AST (14-36) U/L ALT (9-52) U/L Alkaline Phosphatase (38-126) U/L Total Protein (6.3-8.2) G/DL Albumin (3.5-5.0) g/dL Globulin (2.2-3.9) gm/dL Albumin/Globulin Ratio (1.0-2.1) 09/14/16 09/14/16 Range/Units 09:20 04:20 WBC (4.8-10.8) K/uL RBC (3.80-5.20) Mil/uL Hgb (12.0-16.0) g/dL Hct (34.0-47.0) % MCV (81.0-99.0) fl MCH (27.0-31.0) pg MCHC (33.0-37.0) g/dL RDW (11.5-14.5) % Plt Count (130-400) K/uL pCO2 (35-45) mm/Hg pO2 (80-100) mm/Hg HCO3 (21-28) mmol/L ABG pH (7.35-7.45) ABG Total CO2 (22-28) mmol/L ABG O2 Saturation (95-98) % ABG O2 Content (15-23) ML/dL ABG Base Excess (-2.0-3.0) mmol/L ABG Hemoglobin (11.7-17.4) g/dL ABG Carboxyhemoglobin (0.5-1.5) % POC ABG HHb (Measured) (0.0-5.0) % ABG Methemoglobin (0.0-3.0) % ABG O2 Capacity (16-24) mL/dL Darrell Test A-a O2 Difference mm/Hg Hgb O2 Saturation (95.0-98.0) % Vent Mode Mechanical Rate FiO2 % Tidal Volume PEEP Sodium (132-148) mmol/l Potassium (3.6-5.0) MMOL/L Chloride (98-107) mmol/L Carbon Dioxide (22-30) mmol/L Anion Gap (10-20) BUN (7-17) mg/dl Creatinine (0.7-1.2) mg/dL Est GFR ( Amer) Est GFR (Non-Af Amer) POC Glucose (mg/dL) (65-110) mg/dL Random Glucose (65-105) mg/dL Hemoglobin A1c 9.3 H (4.2-6.5) % Calcium (8.4-10.2) mg/dL Magnesium 1.9 (1.6-2.3) MG/DL Total Bilirubin (0.2-1.3) mg/dl AST (14-36) U/L ALT (9-52) U/L Alkaline Phosphatase (38-126) U/L Total Protein (6.3-8.2) G/DL Albumin (3.5-5.0) g/dL Globulin (2.2-3.9) gm/dL Albumin/Globulin Ratio (1.0-2.1) Laboratory Results - last 24 hr 09/14/16 09/14/16 09/14/16 04:20 09:20 11:25 WBC RBC Hgb Hct MCV MCH MCHC RDW Plt Count pCO2 31 L pO2 101 H HCO3 23.5 ABG pH 7.45 ABG Total CO2 22.5 ABG O2 Saturation 99.4 H ABG O2 Content 13.8 L ABG Base Excess -1.9 ABG Hemoglobin 10.0 L ABG Carboxyhemoglobin 1.1 POC ABG HHb (Measured) 0.6 ABG Methemoglobin 1.2 ABG O2 Capacity 13.9 L Darrell Test Yes A-a O2 Difference 431.0 Hgb O2 Saturation 97.1 Vent Mode A/c Mechanical Rate 18 FiO2 80.0 Tidal Volume 500 PEEP 8 Sodium Potassium Chloride Carbon Dioxide Anion Gap BUN Creatinine Est GFR ( Amer) Est GFR (Non-Af Amer) POC Glucose (mg/dL) Random Glucose Hemoglobin A1c 9.3 H Calcium Magnesium 1.9 Total Bilirubin AST ALT Alkaline Phosphatase Total Protein Albumin Globulin Albumin/Globulin Ratio 09/14/16 09/14/16 09/14/16 14:47 18:01 20:52 WBC RBC Hgb Hct MCV MCH MCHC RDW Plt Count pCO2 pO2 HCO3 ABG pH ABG Total CO2 ABG O2 Saturation ABG O2 Content ABG Base Excess ABG Hemoglobin ABG Carboxyhemoglobin POC ABG HHb (Measured) ABG Methemoglobin ABG O2 Capacity Darrell Test A-a O2 Difference Hgb O2 Saturation Vent Mode Mechanical Rate FiO2 Tidal Volume PEEP Sodium Potassium Chloride Carbon Dioxide Anion Gap BUN Creatinine Est GFR ( Amer) Est GFR (Non-Af Amer) POC Glucose (mg/dL) 338 H 304 H 324 H Random Glucose Hemoglobin A1c Calcium Magnesium Total Bilirubin AST ALT Alkaline Phosphatase Total Protein Albumin Globulin Albumin/Globulin Ratio 09/15/16 09/15/16 09/15/16 03:21 04:20 04:20 WBC 20.6 H RBC 4.24 Hgb 9.2 L Hct 30.0 L MCV 70.8 L MCH 21.7 L MCHC 30.6 L RDW 16.9 H Plt Count 283 pCO2 pO2 HCO3 ABG pH ABG Total CO2 ABG O2 Saturation ABG O2 Content ABG Base Excess ABG Hemoglobin ABG Carboxyhemoglobin POC ABG HHb (Measured) ABG Methemoglobin ABG O2 Capacity Darrell Test A-a O2 Difference Hgb O2 Saturation Vent Mode Mechanical Rate FiO2 Tidal Volume PEEP Sodium 142 Potassium 3.7 Chloride 106 Carbon Dioxide 26 Anion Gap 14 BUN 60 H Creatinine 4.9 H Est GFR ( Amer) 10 Est GFR (Non-Af Amer) 9 POC Glucose (mg/dL) 258 H Random Glucose 243 H Hemoglobin A1c Calcium 8.6 Magnesium Total Bilirubin 0.4 AST 171 H ALT 71 H D Alkaline Phosphatase 97 Total Protein 6.4 Albumin 2.8 L Globulin 3.5 Albumin/Globulin Ratio 0.8 L 09/15/16 09/15/16 05:58 08:06 WBC RBC Hgb Hct MCV MCH MCHC RDW Plt Count pCO2 32 L pO2 284 H HCO3 23.9 ABG pH 7.45 ABG Total CO2 23.2 ABG O2 Saturation 100.1 H ABG O2 Content 14.0 L ABG Base Excess -1.3 ABG Hemoglobin 9.7 L ABG Carboxyhemoglobin 1.0 POC ABG HHb (Measured) -0.1 L ABG Methemoglobin 1.8 ABG O2 Capacity 14.0 L Darrell Test Yes A-a O2 Difference 246.0 Hgb O2 Saturation 97.3 Vent Mode A/c Mechanical Rate 18 FiO2 80.0 Tidal Volume 500 PEEP 8 Sodium Potassium Chloride Carbon Dioxide Anion Gap BUN Creatinine Est GFR ( Amer) Est GFR (Non-Af Amer) POC Glucose (mg/dL) 252 H Random Glucose Hemoglobin A1c Calcium Magnesium Total Bilirubin AST ALT Alkaline Phosphatase Total Protein Albumin Globulin Albumin/Globulin Ratio Fingerstick Blood Sugar Results: 252 Review of Systems - Review of Systems Systems not reviewed;Unavailable: Intubated Critical Care Progress Note - Ventilator Checklist Head of Bed 30 Degrees: Yes Daily Sedation Vacation: Yes Daily Assessment of Readiness to Wean: Yes Daily Spontaneous Breathing Trial: Yes PUD Prophalyxis: Yes DVT Prophylaxis: Yes Oral Care with Chlorhexidine Gluconate {CHG}: Yes - Nutrition Nutrition: Nutrition Category Date Time Status NPO Diet [DIET] Diets 09/13/16 Breakfast Active Assessment/Plan (1) Acute kidney injury Current Visit: Yes Status: Acute (2) Cardiac arrest Current Visit: Yes Status: Acute (3) Endotracheally intubated Current Visit: Yes Status: Acute (4) NSTEMI (non-ST elevated myocardial infarction) Current Visit: Yes Status: Acute (5) On mechanically assisted ventilation Current Visit: Yes Status: Acute (6) Pulmonary infiltrates on CXR Current Visit: Yes Status: Acute (7) Severe aortic stenosis Current Visit: Yes Status: Acute - Assessment and Plan (Free Text) Assessment: Underwent Therapeutic hypothermia protocol No neurological improvement Wean off FIO2 Continue empiric IV antibiotics Blood culture, negative On bicarb infusion Repeat Head CT scan today EEG Card and Renal consult Discussed with family, Very Poor prognosis.
--- NOTE | 2016-09-15 10:42 | PN ---
CRITICAL CARE PROGRESS NOTE DATE: 09/14/2016 Patient in ICU, bed 421. Time spent 45 minutes. HISTORY: Patient is seen and evaluated at the bedside. Discussed with the family members, updated the clinical condition and poor prognosis, status post EEG done this morning. Awaiting neurology evaluation and the EEG report. Patient overnight completed hypothermia protocol. Remains on the ventilator AC/PRVC rate 18, set tidal volume of 500 mL, FiO2 of 80%, PEEP 8, _ rate 18, exhaled tidal volume of 500, minute ventilation 8.6 liters, peak inspiratory pressure 29, mean airway pressure 14, and tidal CO2 of 21. No sedation, off Diprivan drip, remains unresponsive. No response to verbal or painful stimuli. No discharge noted on ventilator. PHYSICAL EXAMINATION: VITAL SIGNS: Temperature 94.5, heart rate 75, respiratory rate of 18, blood pressure 153/65, oxygen saturation 100%, intake 1657 mL, output 1100 mL, positive balance 557, weight 260 pounds. HEENT: Examination of head, eyes, ears, nose and throat; pupils round 2-3 mm, poorly reactive, no nystagmus. No corneal or conjunctival reflex. NECK: Supple. Endotracheal tube in place. No secretion noted. No gag reflex. CHEST: Bilateral breath sounds. Fine crepitations at the bases. HEART: Rhythm regular. S1 and S2, normal intensity. No S3, S4, or gallop. No audible murmur. ABDOMEN: Bowel sounds are present, soft. Not distended. Santoyo in place draining clear urine. EXTREMITIES: 1+ edema. Peripheral pulses intact. No palpable cord. SKIN: Without rash. NEUROLOGIC: No response to verbal or painful stimuli. Negative gag reflex. Flaccid extremities. CURRENT MEDICATIONS: Artificial tears one application both eyes at bedtime, azithromycin 500 mg daily, ceftriaxone 1 gram IV daily, Lovenox 120 mg subcutaneous daily, Humalog insulin per sliding scale, labetalol 20 mg IV push every 6 hours, Protonix 40 IV daily. LABORATORY DATA: WBC 19.5, hemoglobin 9.6, hematocrit 32.1, platelet count 299, neutrophils 91.2, lymphocytes 5.8, monocytes 2.9. PT of 12.7, INR 1.1, PTT 25.2. ABG; pH of 7.45, PCO2 of 31, PO2 of 101, oxygen saturation 99.4 on AC, 18, 500, 80%, PEEP of 8. SMA-7: Sodium 143, potassium 3.2, chloride 109, CO2 of 22, blood urea nitrogen 53, creatinine 3.7, random glucose 362, magnesium 1.9, calcium 8.6. Urinalysis, urine random creatinine is 7.8, total protein 84, urine RBC . Microbiology, urine culture no growth reported. Blood culture no growth reported. Chest x-ray done this morning shows bibasilar opacity and small bilateral pleural effusions. Lines and tubes are intact. Head CT; nonspecific white matter changes, acute infarction, maybe CT occult within the first 24 hours. Incidental/nonacute findings as described. IMPRESSION: 1. Neurologic: Suspected anoxic encephalopathy status post respiratory arrest, followed by possible cardiac arrest, bilateral pulmonary edema as per chest x-ray, requires high FiO2, reduce FiO2 as tolerated to maintain PO2 above 70. 2. Cardiac. Elevated cardiac enzymes, suspected non-ST elevation myocardial infarction. Seen by cardiology consult. Currently on Lovenox 1 mg per kg subcutaneously daily, adjusted renal insufficiency. 3. Pulmonary. Bilateral pulmonary edema, hypoxic hypercapnic respiratory failure, on ventilator, does not overwrite the current vent setting. 4. Gastrointestinal. Abnormal liver enzymes secondary to hypotension, poor perfusion consistent with ischemic hepatitis. 5. Renal. Acute on chronic renal failure, seen by renal consult. RECOMMENDATIONS: Noted: 1. Gastrointestinal: We will initiate NG tube feeding. 2. Hematology: No coagulopathy. 3. Anemia secondary to chronic kidney disease. No overt GI bleeding noted. 4. History of severe aortic valve stenosis. Patient reportedly declined cardiac catheterization and valve replacement prior to admission. 5. Infectious disease. Suspected superimposed pneumonia, currently on Rocephin and Zithromax. Keep the head of bed 30 degrees up. Gastrointestinal prophylaxis. Deep vein thrombosis prophylaxis. Currently, the patient on Lovenox 120 mg subcutaneous daily. Follow EEG report. Kurtis Soto MD MTDD
--- NOTE | 2016-09-15 11:07 | CT ---
PROCEDURE: CT HEAD WITHOUT CONTRAST. HISTORY: mental status COMPARISON: 09/13/2016 TECHNIQUE: Axial computed tomography images were obtained through the head/brain without intravenous contrast. Radiation dose: Total exam DLP = 955.41 mGy-cm. This CT exam was performed using one or more of the following dose reduction techniques: Automated exposure control, adjustment of the mA and/or kV according to patient size, and/or use of iterative reconstruction technique. FINDINGS: HEMORRHAGE: No intracranial hemorrhage. BRAIN: There is diffuse low attenuation of the basal ganglia bilaterally consistent with probable hypoxic/ischemic injury, likely secondary to recent cardiac arrest. Subtle cerebral edema with narrowing of the cortical sulci compared to examination of 09/13. Diffuse edema of the cerebellum with narrowing of the 4th ventricle. No evidence of tonsillar herniation at this time. No territorial infarction. VENTRICLES: Narrowed 4th ventricle. Third and lateral ventricles are unremarkable. No midline shift. CALVARIUM: Unremarkable. PARANASAL SINUSES: Fluid in both right and left maxillary sinus common nonspecific. Correlate for acute sinusitis. Mucoperiosteal thickening in the ethmoid, sphenoid and maxillary sinuses. Consistent with chronic sinusitis. MASTOID AIR CELLS: Trace bilateral mastoid effusion new since prior examination. Nonspecific. OTHER FINDINGS: None. IMPRESSION: Suspect evolving global hypoxic/ ischemic injury. Followup advised. Cerebellar edema. Ischemia of basal ganglia bilaterally. Chronic paranasal sinusitis. . Findings were discussed by telephone with Dr. Olivares at 11:05 a.m. on 09/15/2016.
--- NOTE | 2016-09-15 11:28 | RAD ---
HISTORY: Intubated COMPARISON: 09/14/2016 FINDINGS: LUNGS: Examination grossly limited due to steep oblique positioning of the patient. Opacity at right base is partially artifact. However, cannot rule out right basilar infiltrate. PLEURA: Small bilateral pleural effusion. No pneumothorax. CARDIOVASCULAR: ETT and NG tube grossly unchanged. OSSEOUS STRUCTURES: No significant abnormalities. VISUALIZED UPPER ABDOMEN: Normal. OTHER FINDINGS: None. IMPRESSION: Limited examination. Small bilateral pleural effusion. Possible right basilar infiltrate.
--- NOTE | 2016-09-15 11:34 | CT ---
PROCEDURE: CT Chest without contrast HISTORY: LLL density COMPARISON: Prior chest radiograph dated 09/15/2016 07:31 a.m. TECHNIQUE: Contiguous axial images were obtained through the chest without intravenous contrast enhancement. Sagittal and coronal reconstructions were performed. Radiation dose (DLP): 708 mGy-cm. This CT exam was performed using one or more of the following dose reduction techniques: Automated exposure control, adjustment of the mA and/or kV according to patient size, and/or use of iterative reconstruction technique. FINDINGS: LUNGS: The patient is slightly rotated towards the left which may be a chronic orientation based on dextroscoliotic thoracolumbar spinal deformity. Dependent atelectasis is identified at the bilateral lower lobes increasingly toward the bases but particularly the left side posterior to the heart. Underlying pneumonia is not completely excluded but is not favored either. Minimal changes similarly effect the right middle lobe base medially. No nondependent infiltrate bilaterally. No central airways lesions identified. PE status post endotracheal intubation as well as nasogastric tube placement with the NG identified in the stomach MEDIASTINUM: Unremarkable thoracic aorta. No aneurysm. Borderline cardiomegaly. Main pulmonary artery unremarkable. No vascular congestion. No lymphadenopathy. PLEURA: Mild bilateral pleural effusions are identified. No pneumothorax. . BONES: No fracture. No destructive lesion. Scoliotic spinal deformity. UPPER ABDOMEN: Grossly unremarkable. OTHER FINDINGS: None. IMPRESSION: 1. Bilateral basilar dependent atelectasis appreciated the left greater than right sides underlying pneumonia not excluded the left base though not favored specifically. 2. Borderline cardiomegaly. 3. Mild bilateral pleural effusions.
--- NOTE | 2016-09-15 11:34 | CP.PCM.PN ---
Subjective - Date & Time of Evaluation Date of Evaluation: 09/15/16 Time of Evaluation: 11:00 - Subjective Subjective: Intubated on ventilator support Unresponsive Objective - Vital Signs/Intake and Output Vital Signs (last 24 hours): Temp Pulse Resp BP Pulse Ox 96.7 F L 73 18 150/59 L 99 09/15/16 11:00 09/15/16 11:00 09/15/16 11:00 09/15/16 11:00 09/13/16 12:00 Intake and Output: 09/15/16 09/15/16 06:59 18:59 Intake Total 1100 560 Output Total 99 0 Balance 1001 560 - Medications Medications: Current Medications Artificial Tears (Lacri-Lube) 1 applic OU HS [facility] Last Admin: 09/14/16 21:16 Dose: 1 applic Enoxaparin Sodium (Lovenox) 120 mg SC DAILY [facility] PRN Reason: Protocol Last Admin: 09/15/16 08:26 Dose: 120 mg Ceftriaxone Sodium 1 gm/ (Sodium Chloride) 100 mls @ 100 mls/hr IVPB DAILY [facility] Last Admin: 09/15/16 08:27 Dose: 100 mls/hr Azithromycin 500 mg/ Sodium (Chloride) 250 mls @ 250 mls/hr IVPB DAILY [facility] Last Admin: 09/15/16 09:51 Dose: 250 mls/hr Potassium Chloride 20 meq/ (Sodium Chloride) 1,010 mls @ 50 mls/hr IV .[id number] [facility] Stop: 09/15/16 16:02 Last Admin: 09/14/16 18:42 Dose: 50 mls/hr Insulin Human Lispro (Humalog) 0 units SC Q6H [facility] PRN Reason: Protocol Last Admin: 09/15/16 08:24 Dose: 3 u Labetalol HCl (Trandate) 20 mg IVP Q6H PRN PRN Reason: For SBP > 140 Last Admin: 09/15/16 06:15 Dose: 20 mg Pantoprazole Sodium (Protonix Inj) 40 mg IVP DAILY [facility] Last Admin: 09/15/16 08:22 Dose: 40 mg - Labs Labs: 09/15/16 04:20 09/15/16 04:20 PT 12.7 Seconds (9.8-13.1) 09/13/16 03:10 INR 1.1 (0.9-1.2) 09/13/16 03:10 APTT 29.2 Seconds (25.6-37.1) 09/13/16 23:40 - Respiratory Exam Additional comments: B/L rhonchi - Cardiovascular Exam Cardiovascular Exam: REGULAR RHYTHM - Extremities Exam Additional comments: edema of UEs Assessment and Plan - Assessment and Plan (Free Text) Assessment: Acute on chronic renal failue with under lying Stage 1V kidney disease UO had cosiderably improved yesterday but today is sluggish sofar Hypokalemia S/P cardiac arrest, respiratory failure, pneumonia Global brain anoxia/ischemia including edema of cerebellum Plan: Continue to monitor renal function Supplement K+ as needed Monitor closely
--- NOTE | 2016-09-15 11:52 | EEG ---
09/14/2016 This is a 16-channel electroencephalogram of comatose adult. During the study, photic stimulation was performed, hyperventilation was not performed. The resting electroencephalogram shows no electrical activities noted. There is a diffuse low amplitude activities noted at times. There is no burst suppression noted. IMPRESSION: This is a globally abnormal electroencephalogram because of persistent slowing throughout the record. However, some activities does not meet the criteria of bilateral cerebellar silence. These are secondary to electrical interference. However, there is no burst suppression or paroxysmal activities noted during the study. If clinically indicated, repeat study is recommended. Bahman Verde MD MTDD
--- NOTE | 2016-09-15 13:03 | CP.PCM.PN ---
<Karen Cruz - Last Filed: 09/15/16 12:58> Subjective - Date & Time of Evaluation Date of Evaluation: 09/15/16 Time of Evaluation: 07:15 - Subjective Subjective: Patient seen and examined at bedside with Dr. Bolaños. Patient remains unresponsive at rest or to painful stimuli, on mechanical ventilation, remains with very low urine output into yepez catheter. On Day 3 of IV antibiotics for CAP. Cardiology, Pulmonology and Nephrology on board, ICU activity therapist management and input appreciated. Per family request, neurology was re- consulted for second opinion. Objective - Vital Signs/Intake and Output Vital Signs (last 24 hours): Temp Pulse Resp BP Pulse Ox 96.7 F L 73 18 150/59 L 99 09/15/16 11:00 09/15/16 11:00 09/15/16 11:00 09/15/16 11:00 09/13/16 12:00 Intake and Output: 09/15/16 09/15/16 06:59 18:59 Intake Total 1100 560 Output Total 99 0 Balance 1001 560 - Medications Medications: Current Medications Artificial Tears (Lacri-Lube) 1 applic OU HS [facility] Last Admin: 09/14/16 21:16 Dose: 1 applic Enoxaparin Sodium (Lovenox) 120 mg SC DAILY [facility] PRN Reason: Protocol Last Admin: 09/15/16 08:26 Dose: 120 mg Ceftriaxone Sodium 1 gm/ (Sodium Chloride) 100 mls @ 100 mls/hr IVPB DAILY [facility] Last Admin: 09/15/16 08:27 Dose: 100 mls/hr Azithromycin 500 mg/ Sodium (Chloride) 250 mls @ 250 mls/hr IVPB DAILY [facility] Last Admin: 09/15/16 09:51 Dose: 250 mls/hr Potassium Chloride 20 meq/ (Sodium Chloride) 1,010 mls @ 50 mls/hr IV .[id number] [facility] Stop: 09/15/16 16:02 Last Admin: 09/14/16 18:42 Dose: 50 mls/hr Insulin Human Lispro (Humalog) 0 units SC Q6H [facility] PRN Reason: Protocol Last Admin: 09/15/16 08:24 Dose: 3 u Labetalol HCl (Trandate) 20 mg IVP Q6H PRN PRN Reason: For SBP > 140 Last Admin: 09/15/16 06:15 Dose: 20 mg Pantoprazole Sodium (Protonix Inj) 40 mg IVP DAILY [facility] Last Admin: 09/15/16 08:22 Dose: 40 mg - Labs Labs: 09/15/16 04:20 09/15/16 04:20 PT 12.7 Seconds (9.8-13.1) 09/13/16 03:10 INR 1.1 (0.9-1.2) 09/13/16 03:10 APTT 29.2 Seconds (25.6-37.1) 09/13/16 23:40 - Constitutional Appears: Chronically Ill, Other (unresponsive, intubated) - Head Exam Head Exam: ATRAUMATIC, NORMOCEPHALIC - Eye Exam Additional comments: pupils unreactive - Respiratory Exam Respiratory Exam: Rhonchi (diffuse) - Cardiovascular Exam Cardiovascular Exam: REGULAR RHYTHM, +S1, +S2 - GI/Abdominal Exam GI & Abdominal Exam: Soft. absent: Distended - Exam Additional comments: yepez catheter in place draining clear yellow urine, 10mL - Extremities Exam Additional comments: bilateral pedal hyperpigmentation - Neurological Exam Neurological Exam: absent: Awake (unresponsive) - Skin Skin Exam: Dry, Intact Assessment and Plan - Assessment and Plan (Free Text) Assessment: 76 yr old F admitted for Cardiac arrest of unknown etiology, intubated on mechanical ventilation, admitted to ICU on IV antibiotics for CAP. Patient has PMhx including CAD, PAD s/p stent in RLE, IDDM Type 2, CKD stage IV (not on dialysis-in past discussed but pt refused), 3 recent TIA's, severe aortic stenosis. Cardiology Nephrology, ID and Neurology on board. Per family request, neurology re-consulted for second opinion. Cardiac Arrest -acute, unknown etiology, likely secondary to respiratory failure of unknown etiology vs NSTEMI , BP maintained off pressors -intubated (not sedated): vent PVC/AC 18/ TV 500 : PEEP 6, FiO2 60 (adjusted by pulm) -Protonix 40mg IVP QD, Lacri-lube 1 applic OU HS -KCl 20 Meq in NS at 50 mls/hr -troponin 0.07> 8.34>13.4>12.2 -Cardiology on consult- Dr. Sanford: will follow recommendations, Lovenox 120mg SC QD -Neurology on consult- Dr. Verde: will follow recommendations -EEG 09/14/16: resting EEG shows no electrical activity, some activity does not meet criteria of bilateral cerebellar silence (see full report) -CT head 09/15/16: No ICH, findings consistent with hypoxic/ischemic injury (see full report) -2nd opinion neurology Dr. Tuttle-consult per family request: will follow recommendations Community Acquired Pneumonia -acute, leukocytosis 18.2>22.8>19.5 -repeat CXR: diffuse bilateral intersitial infiltrates -Ceftriaxone 1 gm IV QD, Azithromycin 500mg IV QD (Day 3) -Pulmonology consult appreciated: Dr. Simmons, will follow recommendations -CT chest 09/15/16: b/l basilar atelectasis l>R, left base underlying pneumonia not excluded (see full report) Acute on Chronic Chronic Kidney Disease Stage IV -worsening acute on chronic, secondary to cardiac arrest -Nephrology on consult: Dr. Beasley; will consider Dialysis -hold home meds (Vitamin D 1,000 IU PO QD, NaHCO3 650mg PO QID) -f/u BUN/Cr IDDM Type 2 -uncontrolled, chronic HbA1c 9.3 -Insulin Lispro SC Q6H -low dose protocol -hold home meds (Insulin Levemir Flextouch Pen 8 units SC HS, Atorvastatin 40mg PO QD) -lipid panel wnl CAD (severe aortic stenosis /PAD s/p LE stent/ 3 recent TIA's -stable, chronic -hold home med (Plavix 75mg PO QD) -Cardiology on consult- Dr. Sanford: will follow recommendations -Lovenox 120 mg SC QD Anemia of Chronic Disease -stable, chronic -hold home med (Ferrous Sulfate 325mg PO QD) -monitor CBC HTN -uncontrolled, chronic -Labetolol 20mg IVP Q6H PRN for SBP>140 -hold home meds for now (Clonidine 0.1 mg PO TID, Metoprolol Tartrate 25mg PO, Amlodipine 10mg PO QD) -monitor BP DVT prophylaxis -Lovenox 120 mg SC QD :pt anticoagulated for possible NSTEMI/hx CAD and severe aortic stenosis <Chandan Bolaños - Last Filed: 09/17/16 06:54> Objective - Vital Signs/Intake and Output Vital Signs (last 24 hours): Temp Pulse Resp BP Pulse Ox 102.5 F H 85 24 133/52 L 100 07/27/17 04:00 09/17/16 06:00 09/17/16 06:00 09/17/16 06:00 09/17/16 06:00 Intake and Output: 09/16/16 09/17/16 18:59 06:59 Intake Total 400 620 Output Total 325 120 Balance 75 500 - Medications Medications: Current Medications Acetaminophen (Tylenol 650mg/20.3ml Solution Ud) 650 mg PO Q4 PRN PRN Reason: Temperature Last Admin: 09/17/16 00:25 Dose: 650 mg Artificial Tears (Lacri-Lube) 1 applic OU HS [facility] Last Admin: 09/16/16 22:00 Dose: 1 applic Enoxaparin Sodium (Lovenox) 120 mg SC DAILY [facility] PRN Reason: Protocol Last Admin: 09/16/16 08:42 Dose: 120 mg Ceftriaxone Sodium 1 gm/ (Sodium Chloride) 100 mls @ 100 mls/hr IVPB DAILY [facility] Last Admin: 09/16/16 08:44 Dose: 100 mls/hr Azithromycin 500 mg/ Sodium (Chloride) 250 mls @ 250 mls/hr IVPB DAILY [facility] Last Admin: 09/16/16 08:45 Dose: 250 mls/hr Insulin Human Lispro (Humalog) 0 units SC Q6H [facility] PRN Reason: Protocol Last Admin: 09/17/16 03:47 Dose: Not Given Metoprolol Tartrate (Lopressor) 5 mg IVP Q6 PRN PRN Reason: Systolic Blood Pressure Last Admin: 09/16/16 08:41 Dose: 5 mg Pantoprazole Sodium (Protonix Inj) 40 mg IVP DAILY [facility] Last Admin: 09/16/16 08:43 Dose: 40 mg - Labs Labs: 09/16/16 04:20 09/17/16 05:05 PT 12.7 Seconds (9.8-13.1) 09/13/16 03:10 INR 1.1 (0.9-1.2) 09/13/16 03:10 APTT 29.2 Seconds (25.6-37.1) 09/13/16 23:40 Attending/Attestation - Attestation I have personally seen and examined this patient.: Yes I have fully participated in the care of the patient.: Yes I have reviewed all pertinent clinical information, including history, physical exam and plan: Yes
[2016-09-15] MEDS: Metoprolol 1 mg/ml Inj IVP PRN (17:45)
--- NOTE | 2016-09-15 19:22 | CON ---
DATE: 09/15/2016 NEUROLOGY CONSULTATION CHIEF COMPLAINT: Second opinion for altered mental status. HISTORY OF PRESENT ILLNESS: A 75-year-old woman with past medical history of coronary artery disease, peripheral artery disease status post stent in the right lower extremity, insulin-dependent diabetes mellitus type 2, chronic kidney disease stage IV, now on dialysis, history of 2 TIAs, history of severe aortic stenosis, who was originally brought in for hypoxic respiratory arrest, followed by cardiac arrest at home. I was consulted due to the family wanted a second opinion with regards to the neurological status of the patient. I agree with Dr. Verde's neurological assessment and findings. The patient does have CT head consistent with global hypoxic ischemic brain and felt with some underlying cerebral edema. In addition the EEG showed diffuse persistent slowing but no evidence of full electrocerebral sounds. Currently, the patient has no dolls eye, no gag, no pupillary reflexes, no spontaneous movements of the extremities and does not withdraw to localized noxious stimulus. She does slightly trigger the vent. Case discussed with family at bedside. LABORATORY DATA: Sodium is 142, potassium 3.7, chloride 106, carbon dioxide 26, BUN of 60, creatinine of 4.0. Glucose 243, A1c of 9.3. PAST MEDICAL HISTORY: History of coronary artery disease, peripheral artery disease, status post 1 stent in the right lower extremity, history of insulin-dependent diabetes mellitus type 2, history of severe aortic stenosis, history of TIA, history of chronic kidney disease stage IV, now on dialysis. REVIEW OF SYSTEMS: A 14-point of review of systems was not obtained due to patient's underlying present medical status. FAMILY HISTORY: Noncontributory. SOCIAL HISTORY: Former smoker, quit 10 years ago. No EtOH abuse. . MEDICATIONS: Reviewed by nurse's reconciliation sheet. ALLERGIES: No known drug allergies. PHYSICAL EXAMINATION: VITAL SIGNS: Temperature 97.5, pulse rate 70, blood pressure 152/63, respiratory rate of 18, and oxygen saturation 100% by room air. GENERAL: The patient is intubated, on no sedation. HEENT: Extraocular muscles are not intact. No pupillary reflexes. No doll's eye movement. NECK: Supple. No JVD. LUNGS: Decreased breath sounds bilaterally. HEART: S1 and S2, normal rate and rhythm. No murmurs, rubs, or gallops. ABDOMEN: Soft, nontender, and nondistended. Hypoactive bowel sounds. EXTREMITIES: No clubbing. No cyanosis. There is chronic ishemic changes in lower extremities. Peripheral pulses 1+ bilaterally. NEUROLOGIC: The patient is intubated on no sedation. Has no doll's eye reflex. Pupils are not reactive to light bilaterally. Left eye is dilated, history of the patient being baseline blind. No facial asymmetry seen. No corneal reflex. No gag reflex present. She is slightly over-breathing on the vent. No spontaneous movement of the extremities. DTRs are 1+ throughout. The patient does not withdraw to localized noxious stimulus. Coordination and gait deferred for now. ASSESSMENT AND PLAN: This is a 76-year-old woman with history of coronary artery disease, history of peripheral artery disease, status post stent in the right lower extremity, history of insulin-dependent diabetes mellitus type 2, history of severe acrotic stenosis, transient ischemic attack, chronic kidney disease stage IV, on hemodialysis, came in for hypoxic respiratory arrest as well as followed by cardiac arrest and now has developed global ischemic hypoxic injury to the brain consistent with severe hypoxic ischemic encephalopathy with no evidence of any brainstem reflexes except for slightly overbreathing on the vent. At this time, I agree with Dr. Verde, there is no chance for meaningful recovery, it is very unlikely prognosis is extremely poor, talked to the family at bedside and to go with supportive measures. At this time, thank you for this second opinion consult. I agree with Dr. Verde. Follow with Dr. Verde for further management. Quan uTttle MD
[2016-09-15] MEDS: Mineral Oil/White Petrolatum Ophth Oint OU SCH (21:47)
[2016-09-15] MEDS: Potassium Chloride 20 MEQ in Sodium Chloride 0.45% 1,000 ML IV SCH (22:30)
--- NOTE | 2016-09-15 23:53 | PN ---
DATE: 09/15/2016 NEUROLOGIC PROBLEM: Anoxic encephalopathy. PHYSICAL EXAMINATION: VITAL SIGNS: Blood pressure 153/62, mean arterial pressure of 96, respiratory rate on vent. HEENT: The patient remains the same, deeply comatose, partially eye opened. Cornea is dry. Pupils nonreactive to light. No corneal reflex. LUNGS: No spontaneous breathing in between her ventilator support. EXTREMITIES: No spontaneous movement noted in all four extremities. Tone is increased in all four extremities. Plantars are equivocal response. Deep tendon reflexes are absent. LABORATORY DATA: CAT of the brain reviewed showed huge right cerebral stroke shifting to the left cerebellum as well as obstructing the fourth ventricle. There is some evidence of briones white differentiation is diminished in the cortical area as well. No obstructive hydrocephalous is noted now. The patient's DNR status is not updated. The patient seems that to have all possible treatment. Continue mean arterial pressure around 100. The patient does not show any physiological response for 12 to 48 hour period. At this point, recovery is very slim chance. Overall, prognosis is very poor. Bahman Verde MD YAN
[2016-09-16] MEDS ORDERED: Labetalol 5mg/ml (4ml) ONE (01:45)
[2016-09-16] MEDS: Insulin Lispro (humaLOG) 100 Units/ml Inj SC SCH ×4 (03:15→21:15)
[2016-09-16] MEDS ORDERED: Chlorhexidine Gluconate 1 APPL/PKT TP ONE (04:29)
[2016-09-16 06:09] LABS: CALCIUM 8.5 mg/dL (8.4-10.2)
[2016-09-16 06:16] LABS: HEMOGLOBIN 8.7 g/dL (12.0-16.0); MEAN CELL VOLUME 72.1 fl (81.0-99.0); MEAN CORPUSCULAR HEMOGLOBIN 21.7 pg (27.0-31.0); MEAN CORPUSCULAR HGB CONC 30.1 g/dL (33.0-37.0); RBC 4.01 Mil/uL (3.80-5.20); RED CELL DISTRIBUTION WIDTH 17.1 % (11.5-14.5); WHITE BLOOD COUNT 20.7 K/uL (4.8-10.8)
[2016-09-16] MEDS: Metoprolol 1 mg/ml Inj IVP PRN (08:41)
[2016-09-16] MEDS: Enoxaparin 120 mg Syringe SC SCH (08:42)
[2016-09-16] MEDS: Azithromycin 500 MG in Sodium Chloride 0.9% 250 ML IVPB SCH (08:45)
--- NOTE | 2016-09-16 09:57 | CP.PCM.PN ---
Subjective - Date & Time of Evaluation Date of Evaluation: 09/16/16 Time of Evaluation: 09:41 - Subjective Subjective: Interim entries in EMR reviewed. Neurologically unchanged with second opinion in agreement with poor prognosis. Has had two cxr's done this morning. 1st with ETT down in R mainstem bronchus. Second CXR shows repositioning of ETT and good expansion of right lung and residual shadowing of the left base. PAP higher today at 30cm, plateau at 27cm, SpO2 100%, RR 20/16. Suctioned small amount of thin graham secretions, sent to lab for culture. Continues to have leukocytosis. Unresponsive to verbal or noxious stimuli. No dullness to percussion over the anterior chest wall. No palpable subcutaneous emphysema. Loud sonorous rhonchi present today, R>L. No bronchial breath sounds or wheezes. Sputum to lab for culture. Vent changes made lowering FiO2 to .50, PEEP to 5 and RR to 16. Prognosis for meaningful recovery is poor Present antibiotics to remain the same. Objective - Vital Signs/Intake and Output Vital Signs (last 24 hours): Temp Pulse Resp BP Pulse Ox 100.3 F H 90 21 162/66 H 100 09/16/16 08:00 09/16/16 08:41 09/16/16 08:00 09/16/16 08:41 09/16/16 08:00 Intake and Output: 09/15/16 09/16/16 23:59 11:59 Intake Total 787 400 Output Total 415 400 Balance 372 0 - Medications Medications: Current Medications Artificial Tears (Lacri-Lube) 1 applic OU HS [facility] Last Admin: 09/15/16 21:47 Dose: 1 applic Enoxaparin Sodium (Lovenox) 120 mg SC DAILY [facility] PRN Reason: Protocol Last Admin: 09/16/16 08:42 Dose: 120 mg Ceftriaxone Sodium 1 gm/ (Sodium Chloride) 100 mls @ 100 mls/hr IVPB DAILY [facility] Last Admin: 09/16/16 08:44 Dose: 100 mls/hr Azithromycin 500 mg/ Sodium (Chloride) 250 mls @ 250 mls/hr IVPB DAILY [facility] Last Admin: 09/16/16 08:45 Dose: 250 mls/hr Potassium Chloride 20 meq/ (Sodium Chloride) 1,010 mls @ 50 mls/hr IV .[id number] [facility] Stop: 09/16/16 21:34 Last Admin: 09/15/16 22:30 Dose: 50 mls/hr Insulin Human Lispro (Humalog) 0 units SC Q6H [facility] PRN Reason: Protocol Last Admin: 09/16/16 03:15 Dose: Not Given Metoprolol Tartrate (Lopressor) 5 mg IVP Q6 PRN PRN Reason: Systolic Blood Pressure Last Admin: 09/16/16 08:41 Dose: 5 mg Pantoprazole Sodium (Protonix Inj) 40 mg IVP DAILY [facility] Last Admin: 09/16/16 08:43 Dose: 40 mg - Labs Labs: 09/16/16 04:20 09/16/16 04:20 PT 12.7 Seconds (9.8-13.1) 09/13/16 03:10 INR 1.1 (0.9-1.2) 09/13/16 03:10 APTT 29.2 Seconds (25.6-37.1) 09/13/16 23:40 Assessment and Plan (1) Endotracheally intubated Status: Acute (2) On mechanically assisted ventilation Status: Acute (3) Pulmonary infiltrates on CXR Status: Acute (4) Cardiac arrest Status: Acute (5) NSTEMI (non-ST elevated myocardial infarction) Status: Acute
--- NOTE | 2016-09-16 10:35 | RAD ---
HISTORY: central line placement COMPARISON: Comparison made with prior study 09/16/2016 at 0430 hours FINDINGS: LUNGS: In situ ETT, the tip of which lies approximately 6.45 cm above cortney. NGT is present, the tip of which has not been included on this film though distal aspect does lie well below EG junction. There is silhouetting of the left hemidiaphragm in part due to underpenetration and probably some mild atelectasis; small effusion not excluded. Minor right basilar atelectasis. PLEURA: No significant pleural effusion identified, no pneumothorax apparent. CARDIOVASCULAR: Heart appears enlarged. OSSEOUS STRUCTURES: No significant abnormalities. VISUALIZED UPPER ABDOMEN: Normal. OTHER FINDINGS: None. IMPRESSION: In situ ETT and NGT as above. . Silhouetting of the left hemidiaphragm in part due to underpenetration and probably some mild atelectasis; small effusion not excluded. Minor right basilar atelectasis.
--- NOTE | 2016-09-16 12:46 | CP.PCM.PN ---
<Karen Cruz - Last Filed: 09/16/16 15:39> Subjective - Date & Time of Evaluation Date of Evaluation: 09/16/16 Time of Evaluation: 07:15 - Subjective Subjective: Patient seen and examined at bedside with Dr. Mejia. Physical exam unchanged from yesterday. Had a fever of 101.4F this AM. tx with tylenol suppository. Both neurologists consulted agree that patient has extremely poor prognosis and there is no chance for meaningful recovery. Afternoon meeting with patients' son Burke Nava whom is patients' primary oyster sorter, as well with daughter and god-daughter at bedside; ICU nurse Tish, my senior resident Dr. Kellogg and myself: family decided after their conversation with Dr. Olson and Dr. Verde as well as medical team, they would like patient code status to be DNR . Family has also decided they would like palliative care. custodial maintenance worker Rayne is working on obtaining palliative care consult for family. Objective - Vital Signs/Intake and Output Vital Signs (last 24 hours): Temp Pulse Resp BP Pulse Ox 100.7 F H 90 20 164/69 H 100 09/16/16 12:00 09/16/16 12:00 09/16/16 12:00 09/16/16 12:00 09/16/16 12:00 Intake and Output: 09/16/16 09/16/16 06:59 18:59 Intake Total 667 Output Total 425 Balance 242 - Medications Medications: Current Medications Artificial Tears (Lacri-Lube) 1 applic OU HS [facility] Last Admin: 09/15/16 21:47 Dose: 1 applic Enoxaparin Sodium (Lovenox) 120 mg SC DAILY [facility] PRN Reason: Protocol Last Admin: 09/16/16 08:42 Dose: 120 mg Ceftriaxone Sodium 1 gm/ (Sodium Chloride) 100 mls @ 100 mls/hr IVPB DAILY [facility] Last Admin: 09/16/16 08:44 Dose: 100 mls/hr Azithromycin 500 mg/ Sodium (Chloride) 250 mls @ 250 mls/hr IVPB DAILY [facility] Last Admin: 09/16/16 08:45 Dose: 250 mls/hr Potassium Chloride 20 meq/ (Sodium Chloride) 1,010 mls @ 50 mls/hr IV .[id number] [facility] Stop: 09/16/16 21:34 Last Admin: 09/15/16 22:30 Dose: 50 mls/hr Insulin Human Lispro (Humalog) 0 units SC Q6H [facility] PRN Reason: Protocol Last Admin: 09/16/16 10:08 Dose: 1 u Metoprolol Tartrate (Lopressor) 5 mg IVP Q6 PRN PRN Reason: Systolic Blood Pressure Last Admin: 09/16/16 08:41 Dose: 5 mg Pantoprazole Sodium (Protonix Inj) 40 mg IVP DAILY [facility] Last Admin: 09/16/16 08:43 Dose: 40 mg - Labs Labs: 09/16/16 04:20 09/16/16 04:20 PT 12.7 Seconds (9.8-13.1) 09/13/16 03:10 INR 1.1 (0.9-1.2) 09/13/16 03:10 APTT 29.2 Seconds (25.6-37.1) 09/13/16 23:40 - Constitutional Appears: Chronically Ill (unresponsive, intubated) - Head Exam Head Exam: ATRAUMATIC, NORMOCEPHALIC - Eye Exam Additional comments: pupils unreactive - Respiratory Exam Respiratory Exam: Rhonchi (diffuse) - Cardiovascular Exam Cardiovascular Exam: REGULAR RHYTHM, +S1, +S2 - GI/Abdominal Exam GI & Abdominal Exam: Soft. absent: Distended - Exam Additional comments: yepez in place, catheter draining clear yellow urine, 100mL in bag - Extremities Exam Additional comments: bilateral upper extremity anasarca, bilateral pedal hyperpigmentation - Neurological Exam Neurological Exam: absent: Awake (unresponsive, not sedated) - Skin Skin Exam: Dry, Intact Assessment and Plan - Assessment and Plan (Free Text) Assessment: 76 yr old F admitted for Cardiac arrest of unknown etiology, intubated on mechanical ventilation, admitted to ICU on IV antibiotics for CAP. Patient has PMhx including CAD, PAD s/p stent in RLE, IDDM Type 2, CKD stage IV (not on dialysis-in past discussed but pt refused), 3 recent TIA's, severe aortic stenosis. Cardiology Nephrology, ID and Neurology on board. Patients physical exam has not changed since admission, she continues to be unresponsive. Per family request, patients code status in now DNR, SMOOTH Mclain is working on obtaining palliative care consult per family request as well. Cardiac Arrest -acute, unknown etiology, likely secondary to respiratory failure of unknown etiology vs NSTEMI , BP maintained off pressors -intubated (not sedated): vent PVC/AC 18/ TV 500 : PEEP 6, FiO2 60 (adjusted by pulm) -Protonix 40mg IVP QD, Lacri-lube 1 applic OU HS -KCl 20 Meq in NS at 50 mls/hr -troponin 0.07> 8.34>13.4>12.2 -Cardiology on consult- Dr. Sanford: will follow recommendations, Lovenox 120mg SC QD -Neurology on consult- Dr. Verde: will follow recommendations -EEG 09/14/16: resting EEG shows no electrical activity, some activity does not meet criteria of bilateral cerebellar silence (see full report) -CT head 09/15/16: No ICH, findings consistent with hypoxic/ischemic injury (see full report) -2nd opinion neurology Dr. Tuttle-consult per family request: will follow recommendations Community Acquired Pneumonia -acute, leukocytosis 20.7 -repeat CXR: diffuse bilateral intersitial infiltrates -Ceftriaxone 1 gm IV QD, Azithromycin 500mg IV QD (Day 4) -Pulmonology consult appreciated: Dr. Simmons, will follow recommendations -CT chest 09/15/16: b/l basilar atelectasis L>R, left base underlying pneumonia not excluded (see full report) Acute on Chronic Chronic Kidney Disease Stage IV -worsening acute on chronic, secondary to cardiac arrest -Nephrology on consult: Dr. Beasley; will consider Dialysis -hold home meds (Vitamin D 1,000 IU PO QD, NaHCO3 650mg PO QID) -f/u BUN/Cr IDDM Type 2 -uncontrolled, chronic HbA1c 9.3 -Insulin Lispro SC Q6H -low dose protocol -hold home meds (Insulin Levemir Flextouch Pen 8 units SC HS, Atorvastatin 40mg PO QD) -lipid panel wnl CAD (severe aortic stenosis /PAD s/p LE stent/ 3 recent TIA's -stable, chronic -hold home med (Plavix 75mg PO QD) -Cardiology on consult- Dr. Sanford: will follow recommendations -Lovenox 120 mg SC QD Anemia of Chronic Disease -stable, chronic -hold home med (Ferrous Sulfate 325mg PO QD) -monitor CBC HTN -uncontrolled, chronic -Labetolol 20mg IVP Q6H PRN for SBP>140 -hold home meds for now (Clonidine 0.1 mg PO TID, Metoprolol Tartrate 25mg PO, Amlodipine 10mg PO QD) -monitor BP DVT prophylaxis -Lovenox 120 mg SC QD :pt anticoagulated for possible NSTEMI/hx CAD and severe aortic stenosis <Wallace Mejia - Last Filed: 09/17/16 10:27> Objective - Vital Signs/Intake and Output Vital Signs (last 24 hours): Temp Pulse Resp BP Pulse Ox 102.5 F H 88 22 132/64 100 09/17/16 08:00 09/17/16 08:00 09/17/16 08:00 09/17/16 08:00 09/17/16 08:00 Intake and Output: 09/17/16 09/17/16 06:59 18:59 Intake Total 620 Output Total 150 10 Balance 470 -10 - Medications Medications: Current Medications Acetaminophen (Tylenol 650mg/20.3ml Solution Ud) 650 mg PO Q4 PRN PRN Reason: Temperature Last Admin: 09/17/16 08:07 Dose: 650 mg Artificial Tears (Lacri-Lube) 1 applic OU HS [facility] Last Admin: 09/16/16 22:00 Dose: 1 applic Enoxaparin Sodium (Lovenox) 120 mg SC DAILY [facility] PRN Reason: Protocol Last Admin: 09/17/16 10:02 Dose: 120 mg Ceftriaxone Sodium 1 gm/ (Sodium Chloride) 100 mls @ 100 mls/hr IVPB DAILY [facility] Last Admin: 09/17/16 10:03 Dose: 100 mls/hr Azithromycin 500 mg/ Sodium (Chloride) 250 mls @ 250 mls/hr IVPB DAILY [facility] Last Admin: 09/17/16 10:04 Dose: 250 mls/hr Insulin Human Lispro (Humalog) 0 units SC Q6H [facility] PRN Reason: Protocol Last Admin: 09/17/16 10:02 Dose: 2 u Metoprolol Tartrate (Lopressor) 5 mg IVP Q6 PRN PRN Reason: Systolic Blood Pressure Last Admin: 09/16/16 08:41 Dose: 5 mg Pantoprazole Sodium (Protonix Inj) 40 mg IVP DAILY [facility] Last Admin: 09/17/16 10:03 Dose: 40 mg - Labs Labs: 09/17/16 09:16 09/17/16 05:05 PT 12.7 Seconds (9.8-13.1) 09/13/16 03:10 INR 1.1 (0.9-1.2) 09/13/16 03:10 APTT 29.2 Seconds (25.6-37.1) 09/13/16 23:40 Attending/Attestation - Attestation I have personally seen and examined this patient.: Yes I have fully participated in the care of the patient.: Yes I have reviewed all pertinent clinical information, including history, physical exam and plan: Yes
--- NOTE | 2016-09-16 13:12 | US ---
PROCEDURE: Duplex ultrasound of the carotid and vertebral arteries. HISTORY: assess cerebral blood flow COMPARISON: None available. TECHNIQUE: Grayscale and duplex Doppler evaluation of the cervical carotid and vertebral arteries were performed. The common carotid, carotid bifurcations and cervical ICA and proximal ECA were evaluated. The vertebral arteries were evaluated for gross patency and direction. FINDINGS: RIGHT CAROTID ARTERIES: Common Carotid Artery: Normal. Maximal flow velocity of 84.2 cm/s. Carotid Bifurcation: Prominent atherosclerotic plaque identified. Internal Carotid Artery:Atherosclerotic plaque identified at origin. Maximal flow velocity of 161 cm/s. A moderate stenosis of 50-69 percent is identified. External Carotid Artery (proximal branches): Significant atherosclerotic plaque related to origin. Maximal flow velocity of 147 cm/s. A moderate stenosis of 50-69 percent is identified. ICA/CCA Ratio: LEFT CAROTID ARTERIES: Common Carotid Artery: Normal. Maximal flow velocity of 112 cm/s. Carotid Bifurcation: Prominent atherosclerotic plaque identified. Internal Carotid Artery: Atherosclerotic plaque identified at origin. Maximal flow velocity of 191 cm/s. A moderate stenosis of 50-69 percent is identified. External Carotid Artery (proximal branches): Normal. Maximal flow velocity of 233 cm/s. A stenosis of greater than 70 percent is suggested at its origin. ICA/CCA Ratio: VERTEBRAL ARTERIES: Right Vertebral Artery: Patent. Antegrade flow. Left Vertebral Artery: Patent. Antegrade flow. Peak systolic velocity 132 cm/S. OTHER FINDINGS: None. IMPRESSION: 1. Prior bilateral atherosclerotic plaques about the bilateral carotid bulb regions extending into the bilateral internal and external carotid arteries. 2. Moderate stenoses of 50-69 percent are suggests at the bilateral internal carotid artery's and possibly at the left vertebral artery as well. Consider follow-up MR angiography with and without contrast.
--- NOTE | 2016-09-16 18:05 | CP.CCUPN ---
CCU Subjective - Physician Review Subjective (Free Text): Remains deeply comatose, only triggering vent at 20/ min with rate set to AC12, SPo2 acceptable at 99% on 50% oxygen. OGT drained 300ml overnight, consisting od greenish fluid. Aware the son and daughter have requested DNR status and are aware of its implications. Palliative care services requested as well. T spike to 101.4F early AM noted. Hemodynamics remain stable. ROS: unobtainable. Comatose. Other PMSFH: All recent nursing and physician documentation reviewed and no new information noted relevant to current problems. MAJOR IMPRESSIONS / PLAN: 1. S/p Cardiac Arrest and AMI, on MV support. 2. Anoxic encephalopathy 3. Accelerated HTN 4. Acute on Chronic Kidney Disease III-IV PLAN: 1. MV support without any anticipated weans at this time due to comatose state. 2. Pall Care as requested by family. 3. Fevers may be of central etiology. Empiric abx noted, CXR not remarkable for any significant pneumonitis. 4. IVF hydration. 5. Neurochecks, seizure precautions, HOB elevation. PPi and already on therapeutic Lovenox. CCU Objective - Vital Signs / Intake & Output Intake and Output (Last 8hrs): Intake & Output 09/16/16 09/16/16 09/16/16 06:59 14:59 22:59 Intake Total 450 300 100 Output Total 400 60 20 Balance 50 240 80 Intake: IV 450 300 100 Output: Gastric Amount 300 Stomach 300 Urine 100 60 20 Urethral (Santoyo) 100 60 20 - Physical Exam Physical Exam Limitations: Positive for: Altered Mental Status, Other (Deep Coma , not clinically brain . ) Pupils: Positive for: Sluggish, Other (Left pupil nonreactive. Right pupil sluggish) Extroacular Muscles: Negative for: Gaze Palsy Conjunctiva: Positive for: Injected. Negative for: Icteric Mouth: Positive for: Moist Mucous Membranes Neck: Positive for: Trachea Midline. Negative for: JVD, Lymphadenopathy Respiratory/Chest: Positive for: Clear to Auscultation, Respiratory Distress, Decreased Breath Sounds. Negative for: Accessory Muscle Use, Wheezes Cardiovascular: Positive for: Regular Rate and Rhythm. Negative for: Murmurs, Rub Abdomen: Positive for: Normal Bowel Sounds. Negative for: Tenderness, Distention, Peritoneal Signs Lower Extremity: Positive for: Edema, NORMAL PULSES. Negative for: Cyanosis Neurological: Positive for: Other (Patient unresponsive to verbal and deep pain stimuli. ) Skin: Positive for: Warm. Negative for: Rashes - Medications Active Medications: Active Medications Generic Name Dose Route Start Last Admin Trade Name Freq PRN Reason Stop Dose Admin Artificial Tears 1 applic 09/13/16 22:00 09/15/16 21:47 Lacri-Lube OU 1 applic HS [facility] GRACE Administration Enoxaparin Sodium 120 mg 09/14/16 10:30 09/16/16 08:42 Lovenox SC 120 mg DAILY [facility] GRACE Administration Protocol Ceftriaxone Sodium 1 gm/ 100 mls @ 100 mls/hr 09/13/16 11:30 09/16/16 08:44 Sodium Chloride IVPB 100 mls/hr DAILY [facility] GRACE Administration Azithromycin 500 mg/ Sodium 250 mls @ 250 mls/hr 09/13/16 11:30 09/16/16 08: 45 Chloride IVPB 250 mls/hr DAILY [facility] GRACE Administration Potassium Chloride 20 meq/ 1,010 mls @ 50 mls/hr 09/15/16 21:45 09/15/16 22: 30 Sodium Chloride IV 09/16/16 21:34 50 mls/hr .[id number] [facility] GRACE Administration Insulin Human Lispro 0 units 09/13/16 03:15 09/16/16 15:15 Humalog SC Not Given Q6H [facility] Protocol Metoprolol Tartrate 5 mg 09/15/16 15:44 09/16/16 08:41 Lopressor IVP 5 mg Q6 PRN Administration Systolic Blood Pressure Pantoprazole Sodium 40 mg 09/13/16 09:00 09/16/16 08:43 Protonix Inj IVP 40 mg DAILY [facility]ACE Administration - Patient Studies Lab Studies: Microbiology Studies 09/13/16 12:30 Blood Culture - Preliminary Blood NO GROWTH AFTER 3 DAYS 09/13/16 07:27 Blood Culture - Preliminary Blood NO GROWTH AFTER 48 HOURS 09/13/16 07:27 Blood Culture - Preliminary Blood NO GROWTH AFTER 48 HOURS Lab Studies 09/16/16 09/16/16 09/16/16 Range/Units 15:46 09:03 04:20 WBC (4.8-10.8) K/uL RBC (3.80-5.20) Mil/uL Hgb (12.0-16.0) g/dL Hct (34.0-47.0) % MCV (81.0-99.0) fl MCH (27.0-31.0) pg MCHC (33.0-37.0) g/dL RDW (11.5-14.5) % Plt Count (130-400) K/uL Sodium 146 (132-148) mmol/l Potassium 4.2 (3.6-5.0) MMOL/L Chloride 108 H (98-107) mmol/L Carbon Dioxide 25 (22-30) mmol/L Anion Gap 17 (10-20) BUN 70 H (7-17) mg/dl Creatinine 6.3 H (0.7-1.2) mg/dL Est GFR ( Amer) 8 Est GFR (Non-Af Amer) 6 POC Glucose (mg/dL) 136 H 169 H (65-110) mg/dL Random Glucose 140 H (65-105) mg/dL Calcium 8.5 (8.4-10.2) mg/dL 09/16/16 09/16/16 09/16/16 Range/Units 04:20 03:22 03:22 WBC 20.7 H (4.8-10.8) K/uL RBC 4.01 (3.80-5.20) Mil/uL Hgb 8.7 L (12.0-16.0) g/dL Hct 28.9 L (34.0-47.0) % MCV 72.1 L (81.0-99.0) fl MCH 21.7 L (27.0-31.0) pg MCHC 30.1 L (33.0-37.0) g/dL RDW 17.1 H (11.5-14.5) % Plt Count 277 (130-400) K/uL Sodium (132-148) mmol/l Potassium (3.6-5.0) MMOL/L Chloride (98-107) mmol/L Carbon Dioxide (22-30) mmol/L Anion Gap (10-20) BUN (7-17) mg/dl Creatinine (0.7-1.2) mg/dL Est GFR ( Amer) Est GFR (Non-Af Amer) POC Glucose (mg/dL) 137 H 137 H (65-110) mg/dL Random Glucose (65-105) mg/dL Calcium (8.4-10.2) mg/dL 09/15/16 Range/Units 20:45 WBC (4.8-10.8) K/uL RBC (3.80-5.20) Mil/uL Hgb (12.0-16.0) g/dL Hct (34.0-47.0) % MCV (81.0-99.0) fl MCH (27.0-31.0) pg MCHC (33.0-37.0) g/dL RDW (11.5-14.5) % Plt Count (130-400) K/uL Sodium (132-148) mmol/l Potassium (3.6-5.0) MMOL/L Chloride (98-107) mmol/L Carbon Dioxide (22-30) mmol/L Anion Gap (10-20) BUN (7-17) mg/dl Creatinine (0.7-1.2) mg/dL Est GFR ( Amer) Est GFR (Non-Af Amer) POC Glucose (mg/dL) 220 H (65-110) mg/dL Random Glucose (65-105) mg/dL Calcium (8.4-10.2) mg/dL Laboratory Results - last 24 hr 09/15/16 09/16/16 09/16/16 20:45 03:22 03:22 WBC RBC Hgb Hct MCV MCH MCHC RDW Plt Count Sodium Potassium Chloride Carbon Dioxide Anion Gap BUN Creatinine Est GFR ( Amer) Est GFR (Non-Af Amer) POC Glucose (mg/dL) 220 H 137 H 137 H Random Glucose Calcium 09/16/16 09/16/16 09/16/16 04:20 04:20 09:03 WBC 20.7 H RBC 4.01 Hgb 8.7 L Hct 28.9 L MCV 72.1 L MCH 21.7 L MCHC 30.1 L RDW 17.1 H Plt Count 277 Sodium 146 Potassium 4.2 Chloride 108 H Carbon Dioxide 25 Anion Gap 17 BUN 70 H Creatinine 6.3 H Est GFR ( Amer) 8 Est GFR (Non-Af Amer) 6 POC Glucose (mg/dL) 169 H Random Glucose 140 H Calcium 8.5 09/16/16 15:46 WBC RBC Hgb Hct MCV MCH MCHC RDW Plt Count Sodium Potassium Chloride Carbon Dioxide Anion Gap BUN Creatinine Est GFR ( Amer) Est GFR (Non-Af Amer) POC Glucose (mg/dL) 136 H Random Glucose Calcium Radiology Interpretations (Free Text): (my interp): ETT position OK above cortney, no gross consolidation. Fingerstick Blood Sugar Results: 136 Critical Care Progress Note - Ventilator Checklist Head of Bed 30 Degrees: Yes Daily Sedation Vacation: No Daily Assessment of Readiness to Wean: No Daily Spontaneous Breathing Trial: No PUD Prophalyxis: Yes DVT Prophylaxis: Yes Oral Care with Chlorhexidine Gluconate {CHG}: Yes - Vent Settings MODE:: ASSIST CONTROL TIDAL VOLUME:: 500 RESP RATE:: 12 FIO2:: 50 PEEP:: 5 - Extremities/Vascular Does the Patient have a Central Venous Catheter?: Yes Insertion Site: Femoral Vein Does the Patient need a Central Venous Catheter?: Yes Does the Patient have a Santoyo Catheter?: Yes Does the Patient need a Santoyo Catheter?: Yes Catheter Insertion Criteria: Need for accurate measurement of output in critically ill patient - Prophylaxis GI Prophylaxis GI: PPI - Prophylaxis DVT Prophylaxis DVT: Lovenox - Nutrition Nutrition: Nutrition Category Date Time Status NPO Diet [DIET] Diets 09/13/16 Breakfast Active
--- NOTE | 2016-09-16 18:16 | CP.PCM.PN ---
Subjective - Date & Time of Evaluation Date of Evaluation: 09/16/16 Time of Evaluation: 06:00 - Subjective Subjective: Remains on ventilator support. Comatose Objective - Vital Signs/Intake and Output Vital Signs (last 24 hours): Temp Pulse Resp BP Pulse Ox 100.7 F H 90 19 148/62 100 09/16/16 12:00 09/16/16 14:00 09/16/16 14:00 09/16/16 14:00 09/16/16 14:00 Intake and Output: 09/16/16 09/16/16 06:59 18:59 Intake Total 667 400 Output Total 425 80 Balance 242 320 - Medications Medications: Current Medications Artificial Tears (Lacri-Lube) 1 applic OU HS [facility] Last Admin: 09/15/16 21:47 Dose: 1 applic Enoxaparin Sodium (Lovenox) 120 mg SC DAILY [facility] PRN Reason: Protocol Last Admin: 09/16/16 08:42 Dose: 120 mg Ceftriaxone Sodium 1 gm/ (Sodium Chloride) 100 mls @ 100 mls/hr IVPB DAILY [facility] Last Admin: 09/16/16 08:44 Dose: 100 mls/hr Azithromycin 500 mg/ Sodium (Chloride) 250 mls @ 250 mls/hr IVPB DAILY [facility] Last Admin: 09/16/16 08:45 Dose: 250 mls/hr Potassium Chloride 20 meq/ (Sodium Chloride) 1,010 mls @ 50 mls/hr IV .[id number] [facility] Stop: 09/16/16 21:34 Last Admin: 09/15/16 22:30 Dose: 50 mls/hr Insulin Human Lispro (Humalog) 0 units SC Q6H [facility] PRN Reason: Protocol Last Admin: 09/16/16 15:15 Dose: Not Given Metoprolol Tartrate (Lopressor) 5 mg IVP Q6 PRN PRN Reason: Systolic Blood Pressure Last Admin: 09/16/16 08:41 Dose: 5 mg Pantoprazole Sodium (Protonix Inj) 40 mg IVP DAILY [facility] Last Admin: 09/16/16 08:43 Dose: 40 mg - Labs Labs: 09/16/16 04:20 09/16/16 04:20 PT 12.7 Seconds (9.8-13.1) 09/13/16 03:10 INR 1.1 (0.9-1.2) 09/13/16 03:10 APTT 29.2 Seconds (25.6-37.1) 09/13/16 23:40 - Respiratory Exam Additional comments: B/L wheezes & crackles - Cardiovascular Exam Cardiovascular Exam: REGULAR RHYTHM - GI/Abdominal Exam GI & Abdominal Exam: Soft - Extremities Exam Extremities Exam: Pedal Edema Assessment and Plan - Assessment and Plan (Free Text) Assessment: Acute on CRF ( stage 1V) Pt remains anuric S/P cardiac arrest Anoxic encepalopathy HTN Plan: Suggest trial of IV lasix & monitor renal function & urine output Pt is now DNR
--- NOTE | 2016-09-16 18:37 | RAD ---
HISTORY: Intubated COMPARISON: Chest x-ray performed 09/15/16. TECHNIQUE: Chest, one view. FINDINGS: Endotracheal tube. Nasogastric tube. LUNGS: Left lower lobe opacity may reflect atelectasis/ pneumonia and or small pleural effusion. No definite pneumothorax. Please note that chest x-ray has limited sensitivity for the detection of pulmonary masses. CARDIOVASCULAR: Cardiomegaly. Dense atherosclerotic calcification of the aortic knob. OSSEOUS STRUCTURES: Degenerative changes of the spine. VISUALIZED UPPER ABDOMEN: Unremarkable. OTHER FINDINGS: None. IMPRESSION: Endotracheal tube. Nasogastric tube. Cardiomegaly. Left lower lobe opacity may reflect atelectasis/ pneumonia and or small pleural effusion.
[2016-09-16] MEDS: Potassium Chloride 20 MEQ in Sodium Chloride 0.45% 1,000 ML IV SCH (21:09)
[2016-09-16] MEDS: Mineral Oil/White Petrolatum Ophth Oint OU SCH (22:00)
[2016-09-17] MEDS: Acetaminophen 650mg/20.3ml solution UD PO PRN ×2 (00:25→08:07)
--- NOTE | 2016-09-17 02:07 | PN ---
DATE: 09/16/2016 SUBJECTIVE: The patient is examined in the presence of her niece. The patient is deeply comatosed with gasping in spite of ventilator support. The patient's eyes are closed. No oculocephalic. No corneal reflex noted. Pupils are nonreactive to light. Quadriplegic. Plantars are mute. No reflexes are noted. Her examination is unchanged to compare with my previous exam. Since her admission, the patient does not show any physiological response makes to think all consistent with very poor prognosis. Her CAT findings also showed evidence of huge right cerebellar stroke with effacement of the brain stem and fourth ventricle, which maybe the cause for her clinical presentation. The patient's family members are aware of her critical illness. Continue the present supportive care. Bahman Verde MD MTDD
[2016-09-17] MEDS: Insulin Lispro (humaLOG) 100 Units/ml Inj SC SCH ×3 (03:47→17:01)
[2016-09-17 05:12] LABS: ABG ALLEN TEST YES; ARTERIAL BLOOD GAS HCO3 18.4 mmol/L (21-28); ARTERIAL BLOOD GAS HEMOGLOBIN 9.9 g/dL (11.7-17.4); ARTERIAL BLOOD GAS O2 CAPACITY 13.6 mL/dL (16-24); ARTERIAL BLOOD GAS O2 CONTENT 13.4 ML/dL (15-23); ARTERIAL BLOOD GAS O2 SAT 98.5 % (95-98); ARTERIAL BLOOD GAS PCO2 42 mm/Hg (35-45); ARTERIAL BLOOD GAS PH 7.25 (7.35-7.45); ARTERIAL BLOOD GAS PO2 88 mm/Hg (80-100); ARTERIAL BLOOD GAS TCO2 19.7 mmol/L (22-28)
[2016-09-17 05:52] LABS: ALB/GLOB RATIO 0.9 (1.0-2.1); ALBUMIN 2.8 g/dL (3.5-5.0)
--- NOTE | 2016-09-17 08:43 | CP.PCM.PN ---
Subjective - Date & Time of Evaluation Date of Evaluation: 09/17/16 Time of Evaluation: 08:36 - Subjective Subjective: Overnight events noted. Interim EMR entries reviewed. CXR shows ETT needs to be advanced inwards by 2cm; otherwise is essentially the same. Has developed persistent febrile pattern. Neurological status remains the same, unresponsive. Audible air leak orally. Breath sounds are very diminished bilaterally, but present. Transmitted upper airways rhonchi present. No wheezes. Ventilator tidal volume decreased from prior. ETT repositioned by respiratory therapy. Patient is DNR status. Palliative care requested. Maintain supportive care for the present time. Await family decisions regarding further aggressive care. Objective - Vital Signs/Intake and Output Vital Signs (last 24 hours): Temp Pulse Resp BP Pulse Ox 102.5 F H 88 22 132/64 100 09/17/16 08:00 09/17/16 08:00 09/17/16 08:00 09/17/16 08:00 09/17/16 08:00 Intake and Output: 09/16/16 09/17/16 23:59 11:59 Intake Total 500 420 Output Total 295 150 Balance 205 270 - Medications Medications: Current Medications Acetaminophen (Tylenol 650mg/20.3ml Solution Ud) 650 mg PO Q4 PRN PRN Reason: Temperature Last Admin: 09/17/16 08:07 Dose: 650 mg Artificial Tears (Lacri-Lube) 1 applic OU HS [facility] Last Admin: 09/16/16 22:00 Dose: 1 applic Enoxaparin Sodium (Lovenox) 120 mg SC DAILY [facility] PRN Reason: Protocol Last Admin: 09/16/16 08:42 Dose: 120 mg Ceftriaxone Sodium 1 gm/ (Sodium Chloride) 100 mls @ 100 mls/hr IVPB DAILY [facility] Last Admin: 09/16/16 08:44 Dose: 100 mls/hr Azithromycin 500 mg/ Sodium (Chloride) 250 mls @ 250 mls/hr IVPB DAILY [facility] Last Admin: 09/16/16 08:45 Dose: 250 mls/hr Insulin Human Lispro (Humalog) 0 units SC Q6H [facility] PRN Reason: Protocol Last Admin: 09/17/16 03:47 Dose: Not Given Metoprolol Tartrate (Lopressor) 5 mg IVP Q6 PRN PRN Reason: Systolic Blood Pressure Last Admin: 09/16/16 08:41 Dose: 5 mg Pantoprazole Sodium (Protonix Inj) 40 mg IVP DAILY [facility] Last Admin: 09/16/16 08:43 Dose: 40 mg - Labs Labs: 09/16/16 04:20 09/17/16 05:05 PT 12.7 Seconds (9.8-13.1) 09/13/16 03:10 INR 1.1 (0.9-1.2) 09/13/16 03:10 APTT 29.2 Seconds (25.6-37.1) 09/13/16 23:40 Assessment and Plan (1) Endotracheally intubated Status: Acute (2) On mechanically assisted ventilation Status: Acute (3) Pulmonary infiltrates on CXR Status: Acute (4) Cardiac arrest Status: Acute (5) NSTEMI (non-ST elevated myocardial infarction) Status: Acute
[2016-09-17 09:47] LABS: MEAN CORPUSCULAR HEMOGLOBIN 21.7 pg (27.0-31.0); MEAN CORPUSCULAR HGB CONC 29.8 g/dL (33.0-37.0); RBC 3.67 Mil/uL (3.80-5.20); RED CELL DISTRIBUTION WIDTH 17.3 % (11.5-14.5); WHITE BLOOD COUNT 20.7 K/uL (4.8-10.8)
[2016-09-17] MEDS: Enoxaparin 120 mg Syringe SC SCH (10:02)
[2016-09-17] MEDS: Azithromycin 500 MG in Sodium Chloride 0.9% 250 ML IVPB SCH (10:04)
--- NOTE | 2016-09-17 12:59 | RAD ---
HISTORY: Pulmonary congestion/intubated . Portable study 23:51. COMPARISON: September 16, 2016. Study performed 08:45 FINDINGS: LUNGS: Acute pulmonary edema. PLEURA: No significant pleural effusion identified, no pneumothorax apparent. CARDIOVASCULAR: No significant interval change compared to the prior examination(s). OSSEOUS STRUCTURES: No significant abnormalities. VISUALIZED UPPER ABDOMEN: Normal. OTHER FINDINGS: Stable position of support apparatus. IMPRESSION: Acute pulmonary edema.
--- NOTE | 2016-09-17 15:02 | CP.PCM.PN ---
<Karen Cruz - Last Filed: 09/17/16 14:54> Subjective - Date & Time of Evaluation Date of Evaluation: 09/17/16 Time of Evaluation: 07:15 - Subjective Subjective: Patient seen and examined at bedside with Dr. Bolaños, patient unresponsive and intubated, physical exam remains unchanged. Persistently since 4am today with Tmax 103.2 F. Patient in DNR. SMOOTH Mclain informed us the family had a meeting with palliative care this afternoon and made the decision to proceed with terminal extubation at 9pm tonight. Objective - Vital Signs/Intake and Output Vital Signs (last 24 hours): Temp Pulse Resp BP Pulse Ox 101.2 F H 69 18 104/41 L 93 L 09/17/16 14:00 09/17/16 14:00 09/17/16 14:00 09/17/16 14:00 09/17/16 14:00 Intake and Output: 09/17/16 09/17/16 06:59 18:59 Intake Total 620 350 Output Total 150 80 Balance 470 270 - Medications Medications: Current Medications Acetaminophen (Tylenol 650mg/20.3ml Solution Ud) 650 mg PO Q4 PRN PRN Reason: Temperature Last Admin: 09/17/16 08:07 Dose: 650 mg Artificial Tears (Lacri-Lube) 1 applic OU HS [facility] Last Admin: 09/16/16 22:00 Dose: 1 applic Enoxaparin Sodium (Lovenox) 120 mg SC DAILY MARY GRACE PRN Reason: Protocol Last Admin: 09/17/16 10:02 Dose: 120 mg Ceftriaxone Sodium 1 gm/ (Sodium Chloride) 100 mls @ 100 mls/hr IVPB DAILY [facility] Last Admin: 09/17/16 10:03 Dose: 100 mls/hr Azithromycin 500 mg/ Sodium (Chloride) 250 mls @ 250 mls/hr IVPB DAILY [facility] Last Admin: 09/17/16 10:04 Dose: 250 mls/hr Insulin Human Lispro (Humalog) 0 units SC Q6H MARY GRACE PRN Reason: Protocol Last Admin: 09/17/16 10:02 Dose: 2 u Metoprolol Tartrate (Lopressor) 5 mg IVP Q6 PRN PRN Reason: Systolic Blood Pressure Last Admin: 09/16/16 08:41 Dose: 5 mg Pantoprazole Sodium (Protonix Inj) 40 mg IVP DAILY [facility] Last Admin: 09/17/16 10:03 Dose: 40 mg - Labs Labs: 09/17/16 09:16 09/17/16 05:05 PT 12.7 Seconds (9.8-13.1) 09/13/16 03:10 INR 1.1 (0.9-1.2) 09/13/16 03:10 APTT 29.2 Seconds (25.6-37.1) 09/13/16 23:40 - Constitutional Appears: Chronically Ill (unresponsive, intubated) - Eye Exam Additional comments: pupils unreactive - Respiratory Exam Respiratory Exam: Decreased Breath Sounds, Rhonchi (diffuse) - Cardiovascular Exam Cardiovascular Exam: REGULAR RHYTHM, +S1, +S2 - GI/Abdominal Exam GI & Abdominal Exam: Soft. absent: Distended - Exam Additional comments: yepez in place, catheter draining clear yellow urine, 10mL in bag - Extremities Exam Extremities Exam: Full ROM (bilateral upper extremity anasarca, bilateral pedal hyperpigmentation) - Neurological Exam Neurological Exam: absent: Awake (unresponsive, not sedated) - Skin Skin Exam: Dry, Intact Assessment and Plan - Assessment and Plan (Free Text) Assessment: 76 yr old F admitted for Cardiac arrest likely secondary to right cerebellar stroke. Patient is intubated on mechanical ventilation, admitted to ICU on IV antibiotics for CAP. Patient has PMhx including CAD, PAD s/p stent in RLE, IDDM Type 2, CKD stage IV (not on dialysis-in past discussed but pt refused), 3 recent TIA's, severe aortic stenosis. Cardiology Nephrology, ID and Neurology on board. Patients physical exam has not changed since admission, she continues to be unresponsive. Per family request, patients code status in now DNR, SMOOTH Mclain has informed us that after meeting with palliative care the family has decided to proceed with a terminal extubation tonight at 9pm. Plan: Cardiac Arrest on mechanical ventilation -likely secondary to right cerebellar stroke -family scheduled Terminal Extubation at 9pm tonight -in meantime, continue current management <Chandan Bolaños - Last Filed: 09/21/16 06:58> Objective - Vital Signs/Intake and Output Vital Signs (last 24 hours): Temp Pulse Resp BP Pulse Ox 101.1 F H 76 16 78/33 L 99 09/17/16 20:00 09/17/16 20:00 09/17/16 20:00 09/17/16 20:00 09/17/16 20:00 - Labs Labs: 09/17/16 09:16 09/17/16 05:05 PT 12.7 Seconds (9.8-13.1) 09/13/16 03:10 INR 1.1 (0.9-1.2) 09/13/16 03:10 APTT 29.2 Seconds (25.6-37.1) 09/13/16 23:40 Attending/Attestation - Attestation I have personally seen and examined this patient.: Yes I have fully participated in the care of the patient.: Yes I have reviewed all pertinent clinical information, including history, physical exam and plan: Yes
--- NOTE | 2016-09-17 15:47 | CP.PCM.PN ---
Subjective - Date & Time of Evaluation Date of Evaluation: 09/17/16 Time of Evaluation: 15:45 - Subjective Subjective: Follow up Nephrology Consultation Note Assessment: critical/terminal Acute Kidney Injury (N17.9) likely due to acute tubular necrosis s/p cardiac arrest and ischemic encephalopathy Diabetic chronic Kidney Disease (E11.22) Hypertensive Chronic Kidney Disease (I12.9) Chronic Kidney Disease (N18.4) Stage 4 Anemia (D64.9), HTN (I12.9), hx of CAD, aortic stenosis Plan pt planned for terminal extubation today. due to her terminal condition, renal replacement therapy is not appropriate no further renal intervention. further plan as per palliative care Thanks for allowing me to participate in care of your patient. Please call if any Qs. d/w ICU team. met with palliative care and family bedside Dr James Theodore Office: [phone] Subjective: Noted events overnight. Patients intubated, unresponsive Physical Examination: General Appearance: she is orally intubated. Vitals reviewed and noted as below Lungs: Normal respiratory rate/effort. Breath sounds bilateral rales Heart: Normal rate. s1s2 normal. No rub or gallop. Extremities: 2+ edema. Neurological: Patient is comatose and unresponsive Labs/imaging reviewed. Past medical history, past surgical history, family history, social history, allergy reviewed Objective - Vital Signs/Intake and Output Vital Signs (last 24 hours): Temp Pulse Resp BP Pulse Ox 101.2 F H 69 18 104/41 L 93 L 09/17/16 14:00 09/17/16 14:00 09/17/16 14:00 09/17/16 14:00 09/17/16 14:00 Intake and Output: 09/17/16 09/17/16 06:59 18:59 Intake Total 620 350 Output Total 150 80 Balance 470 270 - Medications Medications: Current Medications Acetaminophen (Tylenol 650mg/20.3ml Solution Ud) 650 mg PO Q4 PRN PRN Reason: Temperature Last Admin: 09/17/16 08:07 Dose: 650 mg Artificial Tears (Lacri-Lube) 1 applic OU HS [facility] Last Admin: 09/16/16 22:00 Dose: 1 applic Enoxaparin Sodium (Lovenox) 120 mg SC DAILY [facility] GRACE PRN Reason: Protocol Last Admin: 09/17/16 10:02 Dose: 120 mg Ceftriaxone Sodium 1 gm/ (Sodium Chloride) 100 mls @ 100 mls/hr IVPB DAILY [facility] Last Admin: 09/17/16 10:03 Dose: 100 mls/hr Azithromycin 500 mg/ Sodium (Chloride) 250 mls @ 250 mls/hr IVPB DAILY [facility] Last Admin: 09/17/16 10:04 Dose: 250 mls/hr Insulin Human Lispro (Humalog) 0 units SC Q6H [facility]ARY GRACE PRN Reason: Protocol Last Admin: 09/17/16 10:02 Dose: 2 u Metoprolol Tartrate (Lopressor) 5 mg IVP Q6 PRN PRN Reason: Systolic Blood Pressure Last Admin: 09/16/16 08:41 Dose: 5 mg Pantoprazole Sodium (Protonix Inj) 40 mg IVP DAILY [facility] Last Admin: 09/17/16 10:03 Dose: 40 mg - Labs Labs: 09/17/16 09:16 09/17/16 05:05 PT 12.7 Seconds (9.8-13.1) 09/13/16 03:10 INR 1.1 (0.9-1.2) 09/13/16 03:10 APTT 29.2 Seconds (25.6-37.1) 09/13/16 23:40
--- NOTE | 2016-09-17 16:54 | CP.CCUPN ---
CCU Subjective - Physician Review Subjective (Free Text): Despite low-level brainstem activity manifest only by triggered breaths on the ventilator at a rate of 21, no other viable, purposeful activity noted. Deep coma persists. ETT re-positioned 4 cm lower today after noting no visualization of ETT on AM CXR. Febrile to 102.5F this AM, no increase in leukocytosis. ROS: unobtainable. Comatose. Other PMSFH: All recent nursing and physician documentation reviewed and no new information noted relevant to current problems. MAJOR IMPRESSIONS / PLAN: 1. S/p Cardiac Arrest and AMI, on MV support. 2. Severe Anoxic encephalopathy 3. Accelerated HTN 4. Acute on Chronic Kidney Disease III-IV PLAN: 1. MV support without any anticipated weans at this time due to comatose state. 2. Pall Care as requested by family. Son and daughter have now requested terminal extubation tentative for 9PM tonight. 3. Fevers may be of central etiology. Empiric abx noted, CXR not remarkable for any significant pneumonitis. CCU Objective - Vital Signs / Intake & Output Vital Signs (Last 4 hours): Vital Signs Temp Pulse Resp BP Pulse Ox 09/17/16 15:54 100.5 F H 66 19 87/40 L 90 L 09/17/16 14:00 101.2 F H 69 18 104/41 L 93 L Intake and Output (Last 8hrs): Intake & Output 09/17/16 09/17/16 09/17/16 06:59 14:59 22:59 Intake Total 420 350 Output Total 150 80 Balance 270 270 Intake: IV 400 Intake, Piggyback 350 Oral 20 Output: Gastric Amount 30 Stomach 30 Urine 120 80 Urethral (Santoyo) 120 80 Other: # Bowel Movements 2 - Physical Exam Pupils: Positive for: Sluggish, Other (Left pupil nonreactive. Right pupil sluggish) Extroacular Muscles: Negative for: Gaze Palsy Conjunctiva: Positive for: Injected. Negative for: Icteric Mouth: Positive for: Moist Mucous Membranes Neck: Positive for: Trachea Midline. Negative for: JVD, Lymphadenopathy Respiratory/Chest: Positive for: Clear to Auscultation, Respiratory Distress, Decreased Breath Sounds. Negative for: Accessory Muscle Use, Wheezes Cardiovascular: Positive for: Regular Rate and Rhythm. Negative for: Murmurs, Rub Abdomen: Positive for: Normal Bowel Sounds. Negative for: Tenderness, Distention, Peritoneal Signs Lower Extremity: Positive for: Edema, NORMAL PULSES. Negative for: Cyanosis Neurological: Positive for: Other (Patient unresponsive to verbal and deep pain stimuli. ) Skin: Positive for: Warm. Negative for: Rashes - Medications Active Medications: Active Medications Generic Name Dose Route Start Last Admin Trade Name Freq PRN Reason Stop Dose Admin Acetaminophen 650 mg 09/17/16 00:04 09/17/16 08:07 Tylenol 650mg/20.3ml Solution Ud PO 650 mg Q4 PRN Administration Temperature Artificial Tears 1 applic 09/13/16 22:00 09/16/16 22:00 Lacri-Lube OU 1 applic HS MARY GRACE Administration Enoxaparin Sodium 120 mg 09/14/16 10:30 09/17/16 10:02 Lovenox SC 120 mg DAILY MARY GRACE Administration Protocol Ceftriaxone Sodium 1 gm/ 100 mls @ 100 mls/hr 09/13/16 11:30 09/17/16 10:03 Sodium Chloride IVPB 100 mls/hr DAILY MARY GRACE Administration Azithromycin 500 mg/ Sodium 250 mls @ 250 mls/hr 09/13/16 11:30 09/17/16 10: 04 Chloride IVPB 250 mls/hr DAILY MARY GRACE Administration Insulin Human Lispro 0 units 09/13/16 03:15 09/17/16 10:02 Humalog SC 2 u Q6H MARY GRACE Administration Protocol Metoprolol Tartrate 5 mg 09/15/16 15:44 09/16/16 08:41 Lopressor IVP 5 mg Q6 PRN Administration Systolic Blood Pressure Pantoprazole Sodium 40 mg 09/13/16 09:00 09/17/16 10:03 Protonix Inj IVP 40 mg DAILY MARY GRACE Administration - Patient Studies Lab Studies: Microbiology Studies 09/13/16 12:30 Blood Culture - Preliminary Blood NO GROWTH AFTER 4 DAYS 09/13/16 07:27 Blood Culture - Preliminary Blood NO GROWTH AFTER 3 DAYS 09/13/16 07:27 Blood Culture - Preliminary Blood NO GROWTH AFTER 3 DAYS 09/16/16 Unknown Gram Stain - Final Trachasp Lab Studies 09/17/16 09/17/16 09/17/16 Range/Units 09:16 09:03 05:05 WBC 20.7 H (4.8-10.8) K/uL RBC 3.67 L (3.80-5.20) Mil/uL Hgb 8.0 L (12.0-16.0) g/dL Hct 26.8 L (34.0-47.0) % MCV 73.0 L (81.0-99.0) fl MCH 21.7 L (27.0-31.0) pg MCHC 29.8 L (33.0-37.0) g/dL RDW 17.3 H (11.5-14.5) % Plt Count 223 (130-400) K/uL pCO2 (35-45) mm/Hg pO2 (80-100) mm/Hg HCO3 (21-28) mmol/L ABG pH (7.35-7.45) ABG Total CO2 (22-28) mmol/L ABG O2 Saturation (95-98) % ABG O2 Content (15-23) ML/dL ABG Base Excess (-2.0-3.0) mmol/L ABG Hemoglobin (11.7-17.4) g/dL ABG Carboxyhemoglobin (0.5-1.5) % POC ABG HHb (Measured) (0.0-5.0) % ABG Methemoglobin (0.0-3.0) % ABG O2 Capacity (16-24) mL/dL Darrell Test A-a O2 Difference mm/Hg Hgb O2 Saturation (95.0-98.0) % Vent Mode Mechanical Rate FiO2 % Tidal Volume PEEP Sodium 145 (132-148) mmol/l Potassium 5.4 H (3.6-5.0) MMOL/L Chloride 109 H (98-107) mmol/L Carbon Dioxide 22 (22-30) mmol/L Anion Gap 19 (10-20) BUN 86 H (7-17) mg/dl Creatinine 8.4 H* D (0.7-1.2) mg/dL Est GFR ( Amer) 6 Est GFR (Non-Af Amer) 5 POC Glucose (mg/dL) 201 H (65-110) mg/dL Random Glucose 178 H (65-105) mg/dL Calcium 8.0 L (8.4-10.2) mg/dL Total Bilirubin 0.4 (0.2-1.3) mg/dl AST 110 H D (14-36) U/L ALT 43 (9-52) U/L Alkaline Phosphatase 71 (38-126) U/L Total Protein 5.9 L (6.3-8.2) G/DL Albumin 2.8 L (3.5-5.0) g/dL Globulin 3.1 (2.2-3.9) gm/dL Albumin/Globulin Ratio 0.9 L (1.0-2.1) 09/17/16 09/17/16 09/16/16 Range/Units 04:57 03:33 21:12 WBC (4.8-10.8) K/uL RBC (3.80-5.20) Mil/uL Hgb (12.0-16.0) g/dL Hct (34.0-47.0) % MCV (81.0-99.0) fl MCH (27.0-31.0) pg MCHC (33.0-37.0) g/dL RDW (11.5-14.5) % Plt Count (130-400) K/uL pCO2 42 (35-45) mm/Hg pO2 88 (80-100) mm/Hg HCO3 18.4 L (21-28) mmol/L ABG pH 7.25 L (7.35-7.45) ABG Total CO2 19.7 L (22-28) mmol/L ABG O2 Saturation 98.5 H (95-98) % ABG O2 Content 13.4 L (15-23) ML/dL ABG Base Excess -8.3 L (-2.0-3.0) mmol/L ABG Hemoglobin 9.9 L (11.7-17.4) g/dL ABG Carboxyhemoglobin 1.4 (0.5-1.5) % POC ABG HHb (Measured) 1.5 (0.0-5.0) % ABG Methemoglobin 1.5 (0.0-3.0) % ABG O2 Capacity 13.6 L (16-24) mL/dL Darrell Test Yes A-a O2 Difference 359.0 mm/Hg Hgb O2 Saturation 95.6 (95.0-98.0) % Vent Mode A/c Mechanical Rate 16 FiO2 70.0 % Tidal Volume 500 PEEP 5 Sodium (132-148) mmol/l Potassium (3.6-5.0) MMOL/L Chloride (98-107) mmol/L Carbon Dioxide (22-30) mmol/L Anion Gap (10-20) BUN (7-17) mg/dl Creatinine (0.7-1.2) mg/dL Est GFR ( Amer) Est GFR (Non-Af Amer) POC Glucose (mg/dL) 138 H 148 H (65-110) mg/dL Random Glucose (65-105) mg/dL Calcium (8.4-10.2) mg/dL Total Bilirubin (0.2-1.3) mg/dl AST (14-36) U/L ALT (9-52) U/L Alkaline Phosphatase (38-126) U/L Total Protein (6.3-8.2) G/DL Albumin (3.5-5.0) g/dL Globulin (2.2-3.9) gm/dL Albumin/Globulin Ratio (1.0-2.1) 09/16/16 Range/Units 18:45 WBC (4.8-10.8) K/uL RBC (3.80-5.20) Mil/uL Hgb (12.0-16.0) g/dL Hct (34.0-47.0) % MCV (81.0-99.0) fl MCH (27.0-31.0) pg MCHC (33.0-37.0) g/dL RDW (11.5-14.5) % Plt Count (130-400) K/uL pCO2 (35-45) mm/Hg pO2 (80-100) mm/Hg HCO3 (21-28) mmol/L ABG pH (7.35-7.45) ABG Total CO2 (22-28) mmol/L ABG O2 Saturation (95-98) % ABG O2 Content (15-23) ML/dL ABG Base Excess (-2.0-3.0) mmol/L ABG Hemoglobin (11.7-17.4) g/dL ABG Carboxyhemoglobin (0.5-1.5) % POC ABG HHb (Measured) (0.0-5.0) % ABG Methemoglobin (0.0-3.0) % ABG O2 Capacity (16-24) mL/dL Darrell Test A-a O2 Difference mm/Hg Hgb O2 Saturation (95.0-98.0) % Vent Mode Mechanical Rate FiO2 % Tidal Volume PEEP Sodium (132-148) mmol/l Potassium (3.6-5.0) MMOL/L Chloride (98-107) mmol/L Carbon Dioxide (22-30) mmol/L Anion Gap (10-20) BUN (7-17) mg/dl Creatinine (0.7-1.2) mg/dL Est GFR ( Amer) Est GFR (Non-Af Amer) POC Glucose (mg/dL) 150 H (65-110) mg/dL Random Glucose (65-105) mg/dL Calcium (8.4-10.2) mg/dL Total Bilirubin (0.2-1.3) mg/dl AST (14-36) U/L ALT (9-52) U/L Alkaline Phosphatase (38-126) U/L Total Protein (6.3-8.2) G/DL Albumin (3.5-5.0) g/dL Globulin (2.2-3.9) gm/dL Albumin/Globulin Ratio (1.0-2.1) Laboratory Results - last 24 hr 09/16/16 09/16/16 09/17/16 18:45 21:12 03:33 WBC RBC Hgb Hct MCV MCH MCHC RDW Plt Count pCO2 pO2 HCO3 ABG pH ABG Total CO2 ABG O2 Saturation ABG O2 Content ABG Base Excess ABG Hemoglobin ABG Carboxyhemoglobin POC ABG HHb (Measured) ABG Methemoglobin ABG O2 Capacity Darrell Test A-a O2 Difference Hgb O2 Saturation Vent Mode Mechanical Rate FiO2 Tidal Volume PEEP Sodium Potassium Chloride Carbon Dioxide Anion Gap BUN Creatinine Est GFR ( Amer) Est GFR (Non-Af Amer) POC Glucose (mg/dL) 150 H 148 H 138 H Random Glucose Calcium Total Bilirubin AST ALT Alkaline Phosphatase Total Protein Albumin Globulin Albumin/Globulin Ratio 09/17/16 09/17/16 09/17/16 04:57 05:05 09:03 WBC RBC Hgb Hct MCV MCH MCHC RDW Plt Count pCO2 42 pO2 88 HCO3 18.4 L ABG pH 7.25 L ABG Total CO2 19.7 L ABG O2 Saturation 98.5 H ABG O2 Content 13.4 L ABG Base Excess -8.3 L ABG Hemoglobin 9.9 L ABG Carboxyhemoglobin 1.4 POC ABG HHb (Measured) 1.5 ABG Methemoglobin 1.5 ABG O2 Capacity 13.6 L Darrell Test Yes A-a O2 Difference 359.0 Hgb O2 Saturation 95.6 Vent Mode A/c Mechanical Rate 16 FiO2 70.0 Tidal Volume 500 PEEP 5 Sodium 145 Potassium 5.4 H Chloride 109 H Carbon Dioxide 22 Anion Gap 19 BUN 86 H Creatinine 8.4 H* D Est GFR ( Amer) 6 Est GFR (Non-Af Amer) 5 POC Glucose (mg/dL) 201 H Random Glucose 178 H Calcium 8.0 L Total Bilirubin 0.4 AST 110 H D ALT 43 Alkaline Phosphatase 71 Total Protein 5.9 L Albumin 2.8 L Globulin 3.1 Albumin/Globulin Ratio 0.9 L 09/17/16 09:16 WBC 20.7 H RBC 3.67 L Hgb 8.0 L Hct 26.8 L MCV 73.0 L MCH 21.7 L MCHC 29.8 L RDW 17.3 H Plt Count 223 pCO2 pO2 HCO3 ABG pH ABG Total CO2 ABG O2 Saturation ABG O2 Content ABG Base Excess ABG Hemoglobin ABG Carboxyhemoglobin POC ABG HHb (Measured) ABG Methemoglobin ABG O2 Capacity Darrell Test A-a O2 Difference Hgb O2 Saturation Vent Mode Mechanical Rate FiO2 Tidal Volume PEEP Sodium Potassium Chloride Carbon Dioxide Anion Gap BUN Creatinine Est GFR ( Amer) Est GFR (Non-Af Amer) POC Glucose (mg/dL) Random Glucose Calcium Total Bilirubin AST ALT Alkaline Phosphatase Total Protein Albumin Globulin Albumin/Globulin Ratio Fingerstick Blood Sugar Results: 201 Critical Care Progress Note - Nutrition Nutrition: Nutrition Category Date Time Status NPO Diet [DIET] Diets 09/13/16 Breakfast Active
[2016-09-17 20:54] VITALS: BP 78/33; PULSE 76; RESP 16; TEMP 101.1; O2SAT 99
--- NOTE | 2016-09-18 08:11 | CP.PCM.PRO ---
Pronouncement of Note - Clinical Findings Physical Exam: No Response Verbal/Painful Stimuli, Absent Peripheral Pulses{ Carotid & Femoral}, Absent Heart & Breath Sounds, No Pupillary Light Reflex, No Corneal Reflex, Pupils Fixed & Dilated, Absence of Vital Signs - Pronouncement Time Time of Pronouncement of : 21:25 - Notifications Pronouncement Notifications: Family Notified, Atending Notified Sas Analyst Notified: Yes - Autopsy Autopsy Requested: Yes - [place] [id number]
--- NOTE | 2016-09-18 09:10 | PQF SEPSIS ---
This form is a permanent part of the medical record DR. DENNYS GONZALEZ: COULD YOU PLEASE CLARIFIY IF SEPSIS WAS RULED IN OR OUT. SEPSIS WAS RULED OUT Clarification of your documentation is requested to better reflect the severity of illness and intensity of treatment of your patient. Indicators present [] Temp < 96.8 or > 100.4 [] WBC count > 12,000/mm3 or <000/mm3 or 10% immature neutrophils [] Heart Rate > 90 [] Respiratory Rate > 20 [] Fever or hypothermia [] Chills [] Positive blood cultures [] Hypotension [] Metabolic acidosis (Elevated lactate level, anion gap or reduced blood pH) [] Acute confusion /Altered Mental Status [] Shock [] Other: [] Location in the medical record that reflects the above clinical findings: [] Treatment Provided: [] PHYSICIAN'S RESPONSE : SEPSIS WAS RULED OUT Based on your medical judgment of the clinical indicators outlined above, are you treating this patient for a known or suspected: [] Sepsis / Septicemia Please specify organism if known [] [] SIRS (Systemic Inflammatory Response Syndrome) [] Severe Sepsis (Sepsis with Associated Organ Dysfunction) [] Fever of Unknown Origin [] Other, please indicate: [] community acquired pneumonia [] If Unable to Determine, please check the box, sign and date. Present On Admission (POA) Indicator: [] Present at the time of admission [] Not present at the time of admission [] Clinically Undetermined In responding to this query, please exercise your independent professional judgment. The fact that a question is asked does not imply that any particular answer is desired or expected. Thank you for your clarification on this documentation. If you have any questions please call:[ ] * Thank you, * KELSEY PERRY [[phone] draw tender YAN
== END 2016-09-17 23:00 | DRG 64 ==
LOC: H.ER 02:25 → H.ERHOLD 03:02 → H.ICU/CCU 07:55
PROVIDERS: ADMIT Family Medicine; ATTEND Family Medicine
PROC: 5A1945Z Respiratory Ventilation, 24-96 Consecutive Hours (ICD-10-PCS; principal; 2016-09-13)
PROC: 0BH17EZ Insertion of Endotracheal Airway into Trachea, Via Natural or Artificial Opening (ICD-10-PCS; 2016-09-13)
DX: I63.9 Cerebral infarction, unspecified (principal); I21.4 Non-ST elevation (NSTEMI) myocardial infarction; I46.9 Cardiac arrest, cause unspecified; J18.9 Pneumonia, unspecified organism; G93.6 Cerebral edema; J96.92 Respiratory failure, unspecified with hypercapnia; I13.0 Hypertensive heart and chronic kidney disease with heart failure and stage 1 through stage 4 chronic kidney disease, or unspecified chronic kidney disease; J96.91 Respiratory failure, unspecified with hypoxia; K72.00 Acute and subacute hepatic failure without coma; G82.50 Quadriplegia, unspecified; I50.9 Heart failure, unspecified; N17.0 Acute kidney failure with tubular necrosis; G93.49 Other encephalopathy; R40.20 Unspecified coma; G93.1 Anoxic brain damage, not elsewhere classified; E87.2 Acidosis; J93.82 Other air leak; N18.4 Chronic kidney disease, stage 4 (severe); E11.22 Type 2 diabetes mellitus with diabetic chronic kidney disease; E11.51 Type 2 diabetes mellitus with diabetic peripheral angiopathy without gangrene; D63.8 Anemia in other chronic diseases classified elsewhere; D50.9 Iron deficiency anemia, unspecified; E87.6 Hypokalemia; I25.10 Atherosclerotic heart disease of native coronary artery without angina pectoris; I25.2 Old myocardial infarction; I35.0 Nonrheumatic aortic (valve) stenosis; I95.9 Hypotension, unspecified; Z51.5 Encounter for palliative care; Z66 Do not resuscitate; Z79.4 Long term (current) use of insulin; Z79.82 Long term (current) use of aspirin; Z79.899 Other long term (current) drug therapy; Z86.73 Personal history of transient ischemic attack (TIA), and cerebral infarction without residual deficits; Z87.891 Personal history of nicotine dependence; Z95.5 Presence of coronary angioplasty implant and graft; Z95.820 Peripheral vascular angioplasty status with implants and grafts; R40.2430 Glasgow coma scale score 3-8, unspecified time